=== PATIENT | male | born 1935 | race Caucasian/White ===

== ENCOUNTER 2017-08-22 08:32 | Emergency (ER) | END 2017-08-22 13:30 | disposition home or self-care (01) ==

== ENCOUNTER 2018-04-07 03:33 | Inpatient (IN) | payer OTHER ==
[~2018-04-07] VITALS: Wt 89.5 kg
[~2018-04-07 03:33] MED LIST: ASC500 PO; ASPI-903 PO; BISM262O23 PO; CHOL100062 PO; DILT120C77 PO; FER325 PO; HYDR25TA6 PO; MULT-542 PO; OMEP20CA16 PO; POTA20TA96 PO
[2018-04-07] MEDS ORDERED: SOD CHLORIDE 0.9% 500 ML IV STA (03:56)
[2018-04-07] MEDS ORDERED: morphine 2 MG INJ IV STA (03:56)
[2018-04-07] MEDS ORDERED: ONDANSETRON 4 MG INJ IV STA (03:56)
[2018-04-07] MEDS ORDERED: CEFTRIAXONE 1 GM/50 ML (PMX) 50 ML IVPB ONE (06:00)
[2018-04-07] MEDS ORDERED: NACL 0.9% 3 ML SYG IV SCH (06:00)
[2018-04-07] MEDS ORDERED: PANTOPRAZOLE 40 MG INJ IV SCH (06:00)
[2018-04-07] MEDS ORDERED: ONDANSETRON 4 MG INJ IV PRN (06:00)
[2018-04-07] MEDS ORDERED: ACETAMINOPHEN 325 MG TAB PO PRN (06:00)
[2018-04-07] MEDS: SOD CHLORIDE 0.9% 1,000 ML IV SCH ×4 (06:12→21:28)
[2018-04-07 08:42] VITALS: BP 130/63; PULSE 71; RESP 18
[2018-04-07 15:38] VITALS: BP 117/58; PULSE 67; RESP 18
--- NOTE | 2018-04-07 17:04 | HP ---
Date/Time of Note Date/Time of Note DATE: 04/07/18 TIME: 16:57 Assessment/Plan VTE Prophylaxis SCD applied (from Nsg): Yes Pharmacological prophylaxis: NA/contraindicated Pharm contraindication: surgical contra Lines/Catheters IV Catheter Type (from Nrsg): Peripheral IV Urinary Cath still in place: No Assessment/Plan Hospital Course 1. Abdominal pain secondary to duodenitis/peptic ulcer disease and/or cystitis Protonix 40 mg IV twice daily GI consultation obtained Rocephin IV 2. UTI secondary to history of BPH and bladder incontinence Continue empiric Rocephin Urine culture 3. Hypertension Hold home meds at this time 4. History of GERD PPI 5. History of CVA with residual right-sided deficit No acute issues Prophylaxis: SCDs Result Diagram: 04/07/18 0400 04/07/18 0400 Results 24hrs Laboratory Tests Test 04/07/18 04:00 04/07/18 05:00 White Blood Count 11.6 #H Red Blood Count 4.45 L Hemoglobin 14.8 Hematocrit 43.6 Mean Corpuscular Volume 98.0 Mean Corpuscular Hemoglobin 33.3 H Mean Corpuscular Hemoglobin Concent 33.9 Red Cell Distribution Width 12.8 Platelet Count 142 Mean Platelet Volume 11.7 H Immature Granulocytes % 0.300 Neutrophils % 86.1 H Lymphocytes % 7.9 L Monocytes % 5.5 Eosinophils % 0.0 Basophils % 0.2 Nucleated Red Blood Cells % 0.0 Immature Granulocytes # 0.030 Neutrophils # 10.0 H Lymphocytes # 0.9 Monocytes # 0.6 Eosinophils # 0.0 Basophils # 0.0 Nucleated Red Blood Cells # 0.0 Sodium Level 143 Potassium Level 4.2 Chloride Level 108 Carbon Dioxide Level 26 Anion Gap 9 Blood Urea Nitrogen 21 H Creatinine 0.98 Est Glomerular Filtrat Rate mL/min Glucose Level 142 Calcium Level 9.3 Total Bilirubin 0.5 Direct Bilirubin 0.00 Indirect Bilirubin 0.5 Aspartate Amino Transf (AST/SGOT) 44 Alanine Aminotransferase (ALT/SGPT) 52 Alkaline Phosphatase 87 Troponin I < 0.012 Total Protein 8.0 Albumin 4.2 Globulin 3.80 H Albumin/Globulin Ratio 1.10 Lipase 39 Urine Color YELLOW Urine Clarity SLIGHTLY CLOUDY A Urine pH 7.0 Urine Specific Hayden 1.021 Urine Ketones NEGATIVE Urine Nitrite NEGATIVE Urine Bilirubin NEGATIVE Urine Urobilinogen 2+ H Urine Leukocyte Esterase 3+ H Urine Microscopic RBC 171 H Urine Microscopic WBC 103 H Urine Squamous Epithelial Cells FEW Urine Amorphous Crystals FEW A Urine Bacteria FEW A Urine Hemoglobin 2+ H Urine Glucose NEGATIVE Urine Total Protein 1+ H HPI/ROS Admit Date/Time Admit Date/Time Apr 07, 2018 at 05:51 Hx of Present Illness Patient is an 82-year-old male with a history of CVA with residual right-sided weakness, GERD, BPH with bladder incontinence, hypertension, aspiration pneumonia. The patient presents with 2 days of left mid epigastric pain, patient denies any nausea or vomiting, diarrhea or constipation. Patient states that the pain has now improved. In the ER CT abdomen showed evidence of duodenitis/peptic ulcer disease as well as mild wall thickening of the distal esophagus. Patient has no other complaints this time. ROS Constitutional: no complaints, improved Eyes: no complaints ENT: no complaints Respiratory: no complaints Cardiovascular: no complaints Gastrointestinal: no complaints Genitourinary: no complaints Musculoskeletal: no complaints Skin: no complaints Neurologic: no complaints Endocrine: no complaints Lymphatic: no complaints Psychological: no complaints, nl mood/affect Immunologic: no complaints PMH/Family/Social Past Medical History As per HPI Medications Current Medications Sodium Chloride 1,000 ml @ 80 mls/hr [id number] IV Last administered on 04/07/18at 08:24; Admin Dose 80 MLS/HR; Start 04/07/18 at 05:54 IV Flush (NS 3 ml) 3 ml PER PROTOCOL IV ; Start 04/07/18 at 06:00 Ondansetron HCl (Zofran Inj) 4 mg Q6H PRN IV NAUSEA AND/OR VOMITING; Start 04/07/18 at 06:00 Acetaminophen (Tylenol Tab) 650 mg Q6H PRN PO PAIN LEVEL 1-3 OR FEVER; Start 04/07/18 at 06:00 Pantoprazole (Protonix Iv) 40 mg DAILY@06 IV Last administered on 04/07/18at 06:12; Admin Dose 40 MG; Start 04/07/18 at 06:00 Ceftriaxone Sodium 50 ml @ 100 mls/hr Q24H IVPB ; Start 04/08/18 at 04:00 Coded Allergies: No Known Allergy (Verified , 08/22/17) Past Surgical History Past Surgical Hx: cholecystectomy Social History Smoking Status: Never smoker Exam/Review of Systems Vital Signs Vitals Vital Signs Date Temp Pulse Resp B/P (MAP) Pulse Ox O2 O2 Flow FiO2 Time Delivery Rate 04/07/18 97.7 67 18 117/58 93 15:38 (77) 04/07/18 Room Air 06:00 Exam Constitutional: alert, oriented Respiratory: clear to auscultation Cardiovascular: regular rate and rhythm Gastrointestinal: soft, non-tender Musculoskeletal: nl extremities to inspection SEBASTIÁN BETHEA Apr 07, 2018 17:04
[2018-04-07] MEDS: PANTOPRAZOLE 40 MG INJ IV SCH (17:48)
[2018-04-07 20:00] VITALS: BP 124/60; PULSE 76; RESP 18
[2018-04-08] MEDS ORDERED: ZOLPIDEM 5 MG TAB PO ONE (01:00)
[2018-04-08] MEDS ORDERED: CEFTRIAXONE 1 GM/50 ML (PMX) 50 ML IVPB SCH (04:00)
[2018-04-08] MEDS ORDERED: DIPHENHYDRAMINE 25 MG CAP PO PRN (05:00)
[2018-04-08] MEDS: PANTOPRAZOLE 40 MG INJ IV SCH (05:24)
[2018-04-08 07:52] VITALS: BP 121/58; PULSE 71; RESP 18
[2018-04-08] MEDS ORDERED: ASCORBIC ACID 500 MG TAB PO SCH (09:00)
[2018-04-08] MEDS ORDERED: CHOLECALCIFEROL 1,000 UNIT TAB PO SCH (09:00)
[2018-04-08] MEDS: SOD CHLORIDE 0.9% 1,000 ML IV SCH (12:00)
[2018-04-08 14:00] VITALS: BP 128/72; PULSE 78; RESP 20
--- NOTE | 2018-04-08 14:12 | CONS ---
Date/Time of Note Date/Time of Note DATE: 04/08/18 TIME: 13:45 Assessment/Plan Assessment/Plan Hospital Course Summary Assessment and Plan: Assessment: Abdominal pain -Possibly secondary to duodenitis versus UTI versus PUD versus other UTI- Pyrosis BPH Hypertension History of CVA -right-sided weakness Chronic pancreatitis Left adrenal myelolipoma Plan: continue PPI BID EGD tomorrow N.p.o. after 04/09/18 0400 Endoscopy - risks/benefits/alternatives/indications of procedure and sedation/anesthesia discussed with patient and patient's daughter Bekah who states understanding and gives informed consent to proceed. Patient is seen in collaboration with Dr. Lynch/Cruz Result Diagram: 04/08/18 0433 04/08/18 0433 Results 24hrs Laboratory Tests Test 04/08/18 04:33 White Blood Count 8.8 # Red Blood Count 3.90 L Hemoglobin 13.2 L Hematocrit 38.8 L Mean Corpuscular Volume 99.5 Mean Corpuscular Hemoglobin 33.8 H Mean Corpuscular Hemoglobin Concent 34.0 Red Cell Distribution Width 12.8 Platelet Count 143 Mean Platelet Volume 11.4 H Immature Granulocytes % 0.300 Neutrophils % 78.9 H Lymphocytes % 15.1 Monocytes % 5.6 Eosinophils % 0.0 Basophils % 0.1 Nucleated Red Blood Cells % 0.0 Immature Granulocytes # 0.030 Neutrophils # 6.9 Lymphocytes # 1.3 Monocytes # 0.5 Eosinophils # 0.0 Basophils # 0.0 Nucleated Red Blood Cells # 0.0 Sodium Level 145 H Potassium Level 3.9 Chloride Level 108 Carbon Dioxide Level 24 Anion Gap 13 Blood Urea Nitrogen 17 Creatinine 0.94 Est Glomerular Filtrat Rate mL/min Glucose Level 107 Hemoglobin A1c 5.3 Calcium Level 8.6 Magnesium Level 1.9 Total Bilirubin 0.4 Direct Bilirubin 0.00 Indirect Bilirubin 0.4 Aspartate Amino Transf (AST/SGOT) 30 Alanine Aminotransferase (ALT/SGPT) 43 Alkaline Phosphatase 73 Total Protein 6.9 # Albumin 3.5 Globulin 3.40 H Albumin/Globulin Ratio 1.02 Thyroid Stimulating Hormone (TSH) 0.302 L CC: LOUANN LYNCH ; Consultation Date/Type/Reason Admit Date/Time Apr 07, 2018 at 05:51 Date of Consultation: Apr 08, 2018 Type of Consult GI Reason for Consultation Abdominal pain Abnormal imaging of duodenum and esophagus Hx of Present Illness This is a 82-year-old male with past medical history of CVA with right-sided deficits, BPH, hypertension, fibrosis who presented to the hospital with complaints of severe upper abdominal pain, with evaluation patient underwent a CT abdomen pelvis without contrast showing subtle findings of proximal to mid duodenal wall thickening and periduodenal stranding which raises the possibility of duodenitis/peptic disease. There may also be mild circumferential wall thickening versus underdistention of the distal esophagus. No evidence of intestinal obstruction, free air or abscess. New trace right pleural effusion. Otherwise unchanged including colonic diverticulosis without diverticulitis, findings of chronic pancreatitis, and left adrenal myelolipoma compared to previous CT scans. Currently patient is alert and oriented able to to make needs known understands plan for upper endoscopy reviewed risk/benefits patient is agreeable. Additionally called patient's daughter Bekah [phone] scan and discussed plan for EGD but patient states he last ate about 9:00 however we are unsure per patient's daughter request we will plan for EGD tomorrow. Reviewed risk/benefits/alternatives with patient's daughter Bekah who verbalized understanding is agreeable to procedure. Review of Systems: A 12 system, review was conducted and is negative except as noted in the HPI or here. Past Medical History Medications Current Medications Sodium Chloride 1,000 ml @ 80 mls/hr [id number] IV Last administered on 04/08/18at 12:00; Admin Dose 80 MLS/HR; Start 04/07/18 at 05:54 IV Flush (NS 3 ml) 3 ml PER PROTOCOL IV ; Start 04/07/18 at 06:00 Ondansetron HCl (Zofran Inj) 4 mg Q6H PRN IV NAUSEA AND/OR VOMITING; Start 04/07/18 at 06:00 Acetaminophen (Tylenol Tab) 650 mg Q6H PRN PO PAIN LEVEL 1-3 OR FEVER; Start 04/07/18 at 06:00 Ceftriaxone Sodium 50 ml @ 100 mls/hr Q24H IVPB Last administered on 04/08/18at 03:35; Admin Dose 100 MLS/HR; Start 04/08/18 at 04:00 Pantoprazole (Protonix Iv) 40 mg 0600,1800 IV Last administered on 04/08/18at 05:24; Admin Dose 40 MG; Start 04/07/18 at 18:00 Ascorbic Acid (Vitamin C) 500 mg DAILY PO Last administered on 04/08/18at 08:50; Admin Dose 500 MG; Start 04/08/18 at 09:00 Cholecalciferol (Vitamin D) 2,000 unit DAILY PO Last administered on 04/08/18at 08:50; Admin Dose 2,000 UNIT; Start 04/08/18 at 09:00 Diphenhydramine HCl (Benadryl) 25 mg Q6H PRN PO ITCHING Last administered on 04/08/18at 05:24; Admin Dose 25 MG; Start 04/08/18 at 05:00 Allergies: Coded Allergies: [email or web address] (Verified Allergy, Unknown, 04/08/18) Rash and itching Past Surgical History Past Surgical Hx: cholecystectomy Social History Smoking Status: Never smoker Exam/Review of Systems Vital Signs Vitals Vital Signs Date Temp Pulse Resp B/P (MAP) Pulse Ox O2 O2 Flow FiO2 Time Delivery Rate 04/08/18 98.3 71 18 121/58 95 07:52 (79) 04/07/18 Room Air 06:00 Intake and Output 04/07/18 04/07/18 04/08/18 1515:00 23:00 07:00 IntakeIntake Total 1360 ml 610 ml BalanceBalance 1360 ml 610 ml Exam PHYSICAL EXAMINATION: GENERAL: Alert & oriented x 3, forgetful SKIN: No lesions, no stigmata chronic liver disease, no evidence of bleeding diathesis HEAD: Normocephalic, atraumatic, no tenderness. EYES: Pupils equal reactive to light . EARS/NOSE AND THROAT: Ears normal, nose normal, oropharynx normal, NECK: Supple, no masses CARDIOVASCULAR: Heart: Regular rate and rhythm. RESPIRATORY: Lungs clear to auscultation GASTROINTESTINAL AND LIVER: Abdomen: Soft, non tenderness, non-distended, no hernias, no masses, no organomegaly, no ascites, no guarding, no rebound tenderness, normoactive bowel sounds. Rectal: Deferred. EXTREMITIES: No cyanosis, clubbing or edema. Medications Medications Current Medications Sodium Chloride 1,000 ml @ 80 mls/hr [id number] IV Last administered on 04/08/18at 12:00; Admin Dose 80 MLS/HR; Start 04/07/18 at 05:54 IV Flush (NS 3 ml) 3 ml PER PROTOCOL IV ; Start 04/07/18 at 06:00 Ondansetron HCl (Zofran Inj) 4 mg Q6H PRN IV NAUSEA AND/OR VOMITING; Start 04/07/18 at 06:00 Acetaminophen (Tylenol Tab) 650 mg Q6H PRN PO PAIN LEVEL 1-3 OR FEVER; Start 04/07/18 at 06:00 Ceftriaxone Sodium 50 ml @ 100 mls/hr Q24H IVPB Last administered on 04/08/18at 03:35; Admin Dose 100 MLS/HR; Start 04/08/18 at 04:00 Pantoprazole (Protonix Iv) 40 mg 0600,1800 IV Last administered on 04/08/18at 05:24; Admin Dose 40 MG; Start 04/07/18 at 18:00 Ascorbic Acid (Vitamin C) 500 mg DAILY PO Last administered on 04/08/18at 08:50; Admin Dose 500 MG; Start 04/08/18 at 09:00 Cholecalciferol (Vitamin D) 2,000 unit DAILY PO Last administered on 04/08/18at 08:50; Admin Dose 2,000 UNIT; Start 04/08/18 at 09:00 Diphenhydramine HCl (Benadryl) 25 mg Q6H PRN PO ITCHING Last administered on 04/08/18at 05:24; Admin Dose 25 MG; Start 04/08/18 at 05:00 BLANCA WINTERS Apr 08, 2018 13:55
[2018-04-08] MEDS ORDERED: CIPR500T4 PO (14:47)
--- NOTE | 2018-04-08 14:48 | PDOCDIS ---
Discharge Instructions CONDITION [id number] Patient Condition: [id number] Good HOME CARE INSTRUCTIONS: [id number] Diet Instructions: [id number] Regular ACTIVITY: [id number] Activity Restrictions: [id number] No Restrictions FOLLOW UP/APPOINTMENTS Follow-up Plan FOLLOW UP WITH YOUR PRIMARY CARE PHYSICIAN IN 1-2 WEEKS SEBASTIÁN BETHEA Apr 08, 2018 14:48
--- NOTE | 2018-04-08 15:12 | DS ---
Date/Time of Note Date/Time of Note DATE: 04/08/18 TIME: 15:02 Discharge Summary Admission/Discharge Info Admit Date/Time Apr 07, 2018 at 17:10 Discharge Date/Time April 08, 2018 Discharge Diagnosis 1. Abdominal pain secondary to duodenitis/peptic ulcer disease and/or cystitis- resolved Status post Protonix 40 mg IV Continue home PPI GI consultation appreciated, EGD was recommended but patient and daughter prefer to have it done as an outpatient, have spoken to patient's PCP and she is aware Status post Rocephin IV 2. UTI Ultrasound shows no evidence of obstruction or BPH Status post empiric Rocephin Urine culture shows gram-negative rods DC with Cipro 3. Hypertension Continue home meds 4. History of GERD Continue PPI 5. History of CVA with residual right-sided deficit No acute issues Patient Condition: Good Hospital Course Patient is an 82-year-old male with a history of CVA with residual right-sided weakness, GERD, BPH with bladder incontinence, hypertension, aspiration pneumonia. The patient presents with 2 days of left mid epigastric pain, patient denies any nausea or vomiting, diarrhea or constipation. In the ER CT abdomen showed evidence of duodenitis/peptic ulcer disease as well as mild wall thickening of the distal esophagus. Patient's pain did resolve, of note UA and urine culture were consistent with a UTI, patient did receive empiric Rocephin. Renal ultrasound showed no evidence of hydronephrosis or BPH. Patient was seen by GI and recommendation was for EGD, patient and his daughter preferred to have it done as an outpatient, patient's PCP was spoken to and she acknowledged the plan to have it done as an outpatient. Patient was stable for DC with p.o. antibiotics, patient was asymptomatic and had no acute complaints, on the day of discharge patient's vitals, labs and physical exam are stable. Home Meds Active Scripts Ciprofloxacin Hcl* (Ciprofloxacin Hcl*) 500 Mg Tablet, 500 MG PO BID for 5 Days, #10 TAB Prov:SEBASTIÁN BETHEA 04/08/18 Bismuth Subsalicylate* (Pepto-Bismol*) 262 Mg/15 Ml Oral.susp, 15 ML PO TID PRN for DIARRHEA, #24 OZ Prov:JENNIE MILLER MD 08/22/17 Reported Medications Hydrochlorothiazide* (Hydrochlorothiazide*) 25 Mg Tab, 25 MG PO DAILY, #30 TAB 08/22/17 Multivitamin* (Daily Value*) 1 Each Tablet, 1 TAB PO DAILY, TAB 08/22/17 Potassium Chloride* (Potassium Chloride*) 20 Meq Tablet.er, 10 MEQ PO DAILY, TAB.SA 08/22/17 Omeprazole* (Omeprazole*) 20 Mg Capsule.dr, 20 MG PO AC BREAKFAST, #30 CAP 08/22/17 Diltiazem Hcl* (Cardizem CD*) 120 Mg Cap.sr.24h, 30 MG PO Q8, #30 CAP 08/22/17 Cholecalciferol* (Vitamin D3*) 1,000 Unit Tablet, 2000 UNIT PO DAILY, TAB 08/22/17 Aspirin* (Aspirin* Chew) 81 Mg Tab.chew, 81 MG PO DAILY, TAB.CHEW 02/20/16 Ascorbic Acid (Vitamin C) 500 Mg Tab, 500 MG PO DAILY, TAB 03/25/14 Ferrous Sulfate* (Ferrous Sulfate*) 325 Mg Tabec, 325 MG PO BID, TAB 03/25/14 Follow-up Plan FOLLOW UP WITH YOUR PRIMARY CARE PHYSICIAN IN 1-2 WEEKS Primary Care Provider Care Physician No Primary Time spent on discharge: > 30 minutes SEBASTIÁN BETHEA Apr 08, 2018 15:12
--- NOTE | 2018-04-16 23:52 | ERD ---
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 Pain is mild to moderate intensity with no exacerbating factors. No fevers no chills. Mild nausea but no vomiting. No other current complaints. ROS All systems reviewed and are negative except as per history of present illness. Medications Home Meds Active Scripts Ciprofloxacin Hcl* (Ciprofloxacin Hcl*) 500 Mg Tablet, 500 MG PO BID for 5 Days, #10 TAB Prov:SEBASTIÁN BETHEA 04/08/18 Bismuth Subsalicylate* (Pepto-Bismol*) 262 Mg/15 Ml Oral.susp, 15 ML PO TID PRN for DIARRHEA, #24 OZ Prov:JENNIE MILLER MD 08/22/17 Reported Medications Hydrochlorothiazide* (Hydrochlorothiazide*) 25 Mg Tab, 25 MG PO DAILY, #30 TAB 08/22/17 Multivitamin* (Daily Value*) 1 Each Tablet, 1 TAB PO DAILY, TAB 08/22/17 Potassium Chloride* (Potassium Chloride*) 20 Meq Tablet.er, 10 MEQ PO DAILY, TAB.SA 08/22/17 Omeprazole* (Omeprazole*) 20 Mg Capsule.dr, 20 MG PO AC BREAKFAST, #30 CAP 08/22/17 Diltiazem Hcl* (Cardizem CD*) 120 Mg Cap.sr.24h, 30 MG PO Q8, #30 CAP 08/22/17 Cholecalciferol* (Vitamin D3*) 1,000 Unit Tablet, 2000 UNIT PO DAILY, TAB 08/22/17 Aspirin* (Aspirin* Chew) 81 Mg Tab.chew, 81 MG PO DAILY, TAB.CHEW 02/20/16 Ascorbic Acid (Vitamin C) 500 Mg Tab, 500 MG PO DAILY, TAB 03/25/14 Ferrous Sulfate* (Ferrous Sulfate*) 325 Mg Tabec, 325 MG PO BID, TAB 03/25/14 Allergies Allergies: Coded Allergies: zolpidem (Verified Allergy, Unknown, 04/08/18) Rash and itching PMhx/Soc History of Surgery: Yes (cholecystectomy, prostatectomy) Anesthesia Reaction: No Hx Neurological Disorder: Yes (cva) Hx Respiratory Disorders: No Hx Cardiac Disorders: Yes (HTN, HYPERLIPIDEMIA) Hx Psychiatric Problems: No Hx Miscellaneous Medical Probl: Yes (dementia, anemia, gerd/) Hx Alcohol Use: No Hx Substance Use: No Hx Tobacco Use: No Smoking Status: Never smoker Physical Exam Physical Exam Const: No acute distress Head: Atraumatic Eyes: Normal Conjunctiva ENT: Normal External Ears, Nose and Mouth. Neck: Full range of motion. No meningismus. Resp: Clear to auscultation bilaterally Cardio: Regular rate and rhythm, no murmurs Abd: Soft, non tender, non distended. Normal bowel sounds Skin: No petechiae or rashes Back: No midline or flank tenderness Ext: No cyanosis, or edema Neur: Awake and alert Psych: Normal Mood and Affect Results 24 hrs Laboratory Tests Test 04/07/18 04:00 04/07/18 05:00 White Blood Count 11.6 10^3/ul Red Blood Count 4.45 10^6/ul Hemoglobin 14.8 g/dl Hematocrit 43.6 % Mean Corpuscular Volume 98.0 fl Mean Corpuscular Hemoglobin 33.3 pg Mean Corpuscular Hemoglobin Concent 33.9 g/dl Red Cell Distribution Width 12.8 % Platelet Count 142 10^3/UL Mean Platelet Volume 11.7 fl Immature Granulocytes % 0.300 % Neutrophils % 86.1 % Lymphocytes % 7.9 % Monocytes % 5.5 % Eosinophils % 0.0 % Basophils % 0.2 % Nucleated Red Blood Cells % 0.0 /100WBC Immature Granulocytes # 0.030 10^3/ul Neutrophils # 10.0 10^3/ul Lymphocytes # 0.9 10^3/ul Monocytes # 0.6 10^3/ul Eosinophils # 0.0 10^3/ul Basophils # 0.0 10^3/ul Nucleated Red Blood Cells # 0.0 10^3/ul Sodium Level 143 mmol/L Potassium Level 4.2 mmol/L Chloride Level 108 mmol/L Carbon Dioxide Level 26 mmol/L Anion Gap 9 Blood Urea Nitrogen 21 mg/dl Creatinine 0.98 mg/dl Est Glomerular Filtrat Rate mL/min mL/min Glucose Level 142 mg/dl Calcium Level 9.3 mg/dl Total Bilirubin 0.5 mg/dl Direct Bilirubin 0.00 mg/dl Indirect Bilirubin 0.5 mg/dl Aspartate Amino Transf (AST/SGOT) 44 IU/L Alanine Aminotransferase (ALT/SGPT) 52 IU/L Alkaline Phosphatase 87 IU/L Troponin I < 0.012 ng/ml Total Protein 8.0 g/dl Albumin 4.2 g/dl Globulin 3.80 g/dl Albumin/Globulin Ratio 1.10 Lipase 39 U/L Urine Color YELLOW Urine Clarity SLIGHTLY CLOUDY Urine pH 7.0 Urine Specific Crocker 1.021 Urine Ketones NEGATIVE mg/dL Urine Nitrite NEGATIVE mg/dL Urine Bilirubin NEGATIVE mg/dL Urine Urobilinogen 2+ mg/dL Urine Leukocyte Esterase 3+ Betty/ul Urine Microscopic RBC 171 /HPF Urine Microscopic WBC 103 /HPF Urine Squamous Epithelial Cells FEW /HPF Urine Amorphous Crystals FEW /HPF Urine Bacteria FEW /HPF Urine Hemoglobin 2+ mg/dL Urine Glucose NEGATIVE mg/dL Urine Total Protein 1+ mg/dl Current Medications Medications Dose Sig/Eve Start Time Status Last (Trade) Ordered Route PRN Stop Time Admin Dose Reason Admin Sodium 500 ml @ Q1H STAT 04/07/18 DC 04/07/18 Chloride 500 mls/hr IV 03:56 04:42 04/07/18 04:55 Morphine 2 mg ONCE STAT 04/07/18 DC 04/07/18 Sulfate IV 03:56 04:44 (morphine) 04/07/18 03:57 Ondansetron 4 mg ONCE STAT 04/07/18 DC 04/07/18 HCl (Zofran IV 03:56 04:42 Inj) 04/07/18 03:57 Procedures/MDM EKG: Rate/Rhythm: [Normal Sinus Rhythm] QRS, ST, T-waves: [No changes consistent w/ acute ischemia] Impression: [No evidence of ischemia or arrhythmia] Chest X-ray 1V Interpreted by me: Soft Tissue: No acute a bnormalities Bones: No acute abnormalities Mediastinum/Cardiac Silhouette/Lungs: [No acute abnormalities] Medical decision making: Is an 82-year-old male with intractable abdominal pain likely secondary to duodenitis. Patient will be admitted for evaluation and management to the hospitalist group. Hospitalist notified. Patient also has evidence of urinary tract infection has been treated with Rocephin post urine culture. Departure Diagnosis: Primary Impression: Abdominal pain Abdominal location: unspecified location Qualified Codes: R10.9 - Unspecified abdominal pain Condition: Fair Patient Instructions: Pyelonephritis, Ciprofloxacin Hydrochloride Oral tablet JULIETA GARVEY Apr 16, 2018 23:52
== END 2018-04-08 16:22 | disposition home or self-care (01) | DRG 690 ==
LOC: FTE 03:33 → PP2 05:51 → OBSVTOIN 17:10
PROVIDERS: ADMIT Family Medicine; ATTEND Internal Medicine
DX: N39.0 Urinary tract infection, site not specified (principal); I69.951 Hemiplegia and hemiparesis following unspecified cerebrovascular disease affecting right dominant side; K86.1 Other chronic pancreatitis; K29.80 Duodenitis without bleeding; K27.9 Peptic ulcer, site unspecified, unspecified as acute or chronic, without hemorrhage or perforation; I10 Essential (primary) hypertension; N40.0 Benign prostatic hyperplasia without lower urinary tract symptoms
CPT/HCPCS: 36415; 71045; 74176; 76775; 80053; 81001; 83036; 83690; 83735; 84443; 84484; 85025; 87081; 87086; 93005; 96374; 96375; G0378; A4310; C9113; J0696; J2270; J2405; J7030; J7040

== ENCOUNTER 2018-04-18 05:30 | Inpatient (IN) | payer OTHER ==
[2018-04-18] VITALS (14 sets, daily range): BP systolic 83–118; BP diastolic 47–61; PULSE 74–103; RESP 17–21; Ht 177.8 cm; Wt 90.9 kg
[~2018-04-18] VITALS: Ht 177.8 cm; Wt 90.9 kg
[~2018-04-18 05:30] MED LIST changes: +CIPR500T4 PO
[2018-04-18] MEDS ORDERED: ONDANSETRON 4 MG INJ IV STA ×2 (05:36→09:13)
[2018-04-18] MEDS ORDERED: SOD CHLORIDE 0.9% 500 ML IV STA (05:36)
[2018-04-18] MEDS ORDERED: POTA10TA37 PO (06:05)
[2018-04-18] MEDS ORDERED: FURO20TA3 PO (06:05)
[2018-04-18] MEDS ORDERED: FENO54TA7 PO (06:05)
[2018-04-18] MEDS ORDERED: LOSA25TA12 PO (06:05)
[2018-04-18] MEDS ORDERED: ESCI5TAB10 PO (06:05)
--- NOTE | 2018-04-18 06:18 | ERD ---
ER Documentation Chief Complaint Chief Complaint BIB [id number] for AP x3 days w/ n/v/worsening pain today HPI This is an 82-year-old man brought in by EMS from [facility] for being unable to sleep tonight, feeling "uncomfortable", and having constant nausea. Patient denies abdominal pain, he denied this point multiple times during my conversation but states he had severe nausea throughout the night which kept him awake. He was admitted last week for epigastric pain and diagnosed with peptic ulcer disease/duodenitis. Patient states his abdominal pain resolved. He denied vomiting or diarrhea, no blood per rectum or melena, no complaints of chest pain or shortness of breath. ROS All systems reviewed and are negative except as per history of present illness. Medications Home Meds Active Scripts Ondansetron Hcl* (Zofran*) 4 Mg Tablet, 4 MG PO Q8H PRN for NAUSEA AND/OR VOMITING, #30 TAB Prov:JENNIE MILLER MD 04/18/18 Ciprofloxacin Hcl* (Ciprofloxacin Hcl*) 500 Mg Tablet, 500 MG PO BID for 5 Days, #10 TAB Prov:SEBASTIÁN BETHEA 04/08/18 Reported Medications Fenofibrate, Micronized (Fenofibrate) 54 Mg Tablet, 54 MG PO DAILY, TAB 04/18/18 Potassium Chloride* (K-Dur*) 10 Meq Tab.prt.sr, 10 MEQ PO DAILY, TAB 04/18/18 Losartan Potassium* (Losartan Potassium*) 25 Mg Tablet, 25 MG PO DAILY, TAB 04/18/18 Furosemide* (Furosemide*) 20 Mg Tablet, 20 MG PO DAILY, #60 TAB 04/18/18 Escitalopram Oxalate* (Escitalopram Oxalate*) 5 Mg Tablet, 5 MG PO DAILY, #30 TAB 04/18/18 Hydrochlorothiazide* (Hydrochlorothiazide*) 25 Mg Tab, 25 MG PO DAILY, #30 TAB 08/22/17 Multivitamin* (Daily Value*) 1 Each Tablet, 1 TAB PO DAILY, TAB 08/22/17 Omeprazole* (Omeprazole*) 20 Mg Capsule.dr, 20 MG PO AC BREAKFAST, #30 CAP 08/22/17 Diltiazem Hcl* (Cardizem CD*) 120 Mg Cap.sr.24h, 30 MG PO Q8, #30 CAP 08/22/17 Cholecalciferol* (Vitamin D3*) 1,000 Unit Tablet, 2000 UNIT PO DAILY, TAB 08/22/17 Aspirin* (Aspirin* Chew) 81 Mg Tab.chew, 81 MG PO DAILY, TAB.CHEW 02/20/16 Ferrous Sulfate* (Ferrous Sulfate*) 325 Mg Tabec, 325 MG PO BID, TAB 03/25/14 Discontinued Reported Medications Potassium Chloride* (Potassium Chloride*) 20 Meq Tablet.er, 10 MEQ PO DAILY, TAB.SA 08/22/17 Ascorbic Acid (Vitamin C) 500 Mg Tab, 500 MG PO DAILY, TAB 03/25/14 Discontinued Scripts Bismuth Subsalicylate* (Pepto-Bismol*) 262 Mg/15 Ml Oral.susp, 15 ML PO TID PRN for DIARRHEA, #24 OZ Prov:JENNIE MILLER MD 08/22/17 Allergies Allergies: Coded Allergies: zolpidem (Unverified Allergy, Unknown, 04/18/18) Rash and itching PMhx/Soc CVA with residual right-sided weakness, GERD, BPH with bladder incontinence, hypertension, recent UTI and recent duodenitis Medical and Surgical Hx: pt denies Medical Hx, pt denies Surgical Hx History of Surgery: Yes (cholecystectomy, prostatectomy) Anesthesia Reaction: No Hx Neurological Disorder: Yes (cva) Hx Respiratory Disorders: No Hx Cardiac Disorders: Yes (HTN, HYPERLIPIDEMIA) Hx Psychiatric Problems: No Hx Miscellaneous Medical Probl: Yes (dementia, anemia, gerd/) Hx Alcohol Use: No Hx Substance Use: No Hx Tobacco Use: No Smoking Status: Never smoker FmHx Family History: No diabetes Physical Exam Vitals Vital Signs Date Temp Pulse Resp B/P (MAP) Pulse Ox O2 O2 Flow FiO2 Time Delivery Rate 04/18/18 98.5 99 16 120/68 98 Room Air 09:00 (85) 99 04/18/18 98.2 85 24 110/54 98 Nasal 06:56 (72) Cannula 04/18/18 98.2 86 26 117/69 98 Room Air 05:51 (85) 04/18/18 99.3 88 20 117/69 95 05:36 (85) Physical Exam Const: No acute distress, appears dehydrated HEENT: Dry mucous membranes, pink conjunctive, no cervical spine deformity Resp: Clear to auscultation bilaterally Cardio: Regular rate and rhythm, no murmurs Abd: Soft, non tender, non distended. Skin: No petechiae or rashes Back: No midline or flank tenderness Ext: No cyanosis, or edema Neur: Awake and alert x3, no focal deficits or facial asymmetry Psych: Normal Mood and Affect Result Diagram: 04/18/18 0545 04/18/18 0545 Results 24 hrs Laboratory Tests Test 04/18/18 05:45 04/18/18 06:51 White Blood Count 12.4 10^3/ul Red Blood Count 3.91 10^6/ul Hemoglobin 13.1 g/dl Hematocrit 38.6 % Mean Corpuscular Volume 98.7 fl Mean Corpuscular Hemoglobin 33.5 pg Mean Corpuscular Hemoglobin Concent 33.9 g/dl Red Cell Distribution Width 12.9 % Platelet Count 169 10^3/UL Mean Platelet Volume 11.7 fl Immature Granulocytes % 0.500 % Neutrophils % 84.9 % Lymphocytes % 8.7 % Monocytes % 5.7 % Eosinophils % 0.0 % Basophils % 0.2 % Nucleated Red Blood Cells % 0.0 /100WBC Immature Granulocytes # 0.060 10^3/ul Neutrophils # 10.5 10^3/ul Lymphocytes # 1.1 10^3/ul Monocytes # 0.7 10^3/ul Eosinophils # 0.0 10^3/ul Basophils # 0.0 10^3/ul Nucleated Red Blood Cells # 0.0 10^3/ul Sodium Level 147 mmol/L Potassium Level 4.2 mmol/L Chloride Level 107 mmol/L Carbon Dioxide Level 26 mmol/L Anion Gap 14 Blood Urea Nitrogen 34 mg/dl Creatinine 1.07 mg/dl Est Glomerular Filtrat Rate mL/min mL/min Glucose Level 126 mg/dl Calcium Level 9.0 mg/dl Total Bilirubin 0.5 mg/dl Direct Bilirubin 0.00 mg/dl Indirect Bilirubin 0.5 mg/dl Aspartate Amino Transf (AST/SGOT) 51 IU/L Alanine Aminotransferase (ALT/SGPT) 62 IU/L Alkaline Phosphatase 70 IU/L Troponin I < 0.012 ng/ml Total Protein 7.5 g/dl Albumin 4.0 g/dl Globulin 3.50 g/dl Albumin/Globulin Ratio 1.14 Lipase 106 U/L Urine Color YELLOW Urine Clarity CLEAR Urine pH 5.0 Urine Specific [place] 1.020 Urine Ketones NEGATIVE mg/dL Urine Nitrite NEGATIVE mg/dL Urine Bilirubin NEGATIVE mg/dL Urine Urobilinogen 2+ mg/dL Urine Leukocyte Esterase NEGATIVE Betty/ul Urine Hemoglobin NEGATIVE mg/dL Urine Glucose NEGATIVE mg/dL Urine Total Protein NEGATIVE mg/dl Current Medications Medications Dose Sig/Eve Start Time Status Last (Trade) Ordered Route PRN Stop Time Admin Dose Reason Admin Sodium 500 ml @ Q1H STAT 04/18/18 DC 04/18/18 Chloride 500 mls/hr IV 05:36 05:59 04/18/18 06:35 Ondansetron 4 mg ONCE STAT 04/18/18 DC 04/18/18 HCl (Zofran IV 05:36 05:59 Inj) 04/18/18 05:37 40 mg ONCE STAT 04/18/18 DC Pantoprazole IV 09:13 (Protonix 04/18/18 09:14 Iv) Ondansetron 4 mg ONCE STAT 04/18/18 DC HCl (Zofran IV 09:13 Inj) 04/18/18 09:14 Procedures/MDM IV line was established patient was placed on phototypesetting equipment monitor rhythm strip revealed a sinus rhythm at about 80 bpm with upright P and T waves. Patient was afebrile EKG performed, read by me revealed a normal sinus rhythm 87 bpm, normal axis, narrow complex, no concerning ST elevations or depressions noted CBC was unremarkable, electrolytes revealed dehydration with a BUN/creatinine of 34/1, liver function tests were normal, troponin was negative, urinalysis was negative CT scan of the abdomen and pelvis,IMPRESSION: 1. No acute process in the imaged abdomen or pelvis. 2. Diverticulosis of the large bowel. No evidence of acute inflammation. 3. Small hiatal hernia and small bilateral fat containing inguinal hernias. 4. Cholecystectomy. 5. Chronic pancreatitis. 6. Aortic and coronary atherosclerosis. 7. 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 Patient's vital signs remained normal and above workup was unremarkable, patient had no complaints of pain so initial plan was for discharge back to facility for outpatient management, although while waiting in the ED patient had an episode of coffee-ground emesis and given his recent history of duodenitis and peptic ulcer disease he will be admitted to telemetry setting for continued medical management, GI consultation, upper endoscopy. I administered another liter normal saline IV, Zofran 4 mg IV, Protonix 40 mg IV x1. I spoke to GI cone machine operator and recommendation was to keep n.p.o. pending upper endoscopy. Patient admitted to telemetry setting under hospitalist for upper GI bleed. Departure Diagnosis: Primary Impression: Upper gastrointestinal bleeding Additional Impressions: Acute duodenitis Vomiting Vomiting type: hematemesis Nausea presence: with nausea Qualified Codes: K92.0 - Hematemesis Nausea Dehydration Ruled Out: Insomnia Condition: JENNIE Norman MD Apr 18, 2018 06:18
[2018-04-18] MEDS ORDERED: ONDA4TAB8 PO (07:18)
[2018-04-18] MEDS ORDERED: PANTOPRAZOLE 40 MG INJ IV STA (09:13)
[2018-04-18] MEDS ORDERED: LIDOCAINE 2% VISC 15 ML CUP ONE (10:42)
[2018-04-18] MEDS ORDERED: LIDOCAINE 2% VISC 15 ML CUP PO ONE (11:00)
--- NOTE | 2018-04-18 13:30 | NUR ---
RN NOTE PT GOT ADMITTED TO THE UNIT AT 1315 FROM ER. PT WAS SUPPOSE TO GET D/C BACK TO [facility], HOWEVER PT SNEEZED AND COFFEE GROUND EMESIS PROTRUDED WELL BLEEDING NOTED IN THE RECTUM. PT IS AX3, NO S/S OF DISTRESS, NO C/O PAIN. PT HAS A NGT PLACED CONNECTED TO LOW INTERMITTENT SUCTION. SKIN ASSESSED AND INTACT. BLE ABRASIONS AND BRUISES NOTED, AND DISCOLORATION ON THE SACRAL AREA. PT HAS AN IV N THE LEFT AC, SALINE LOCK ONLY. NO C/O NAUSEA AND VOMITING AT THIS TIME, AND NO BLEEDING NOTED. DR. FLORENTINO MADE AWARE PT IS ON THE FLOOR.
[2018-04-18] MEDS ORDERED: ACETAMINOPHEN 325 MG TAB PO PRN (14:00)
[2018-04-18] MEDS ORDERED: NACL 0.9% 3 ML SYG IV SCH (14:00)
[2018-04-18] MEDS ORDERED: ONDANSETRON 4 MG INJ IV PRN ×2 (14:00→16:30)
--- NOTE | 2018-04-18 14:26 | HP ---
Date/Time of Note Date/Time of Note DATE: 04/18/18 TIME: 14:12 Assessment/Plan VTE Prophylaxis SCD applied (from Nsg): Yes Pharmacological prophylaxis: NA/contraindicated Pharm contraindication: bleeding Lines/Catheters IV Catheter Type (from Nrsg): Saline Lock Urinary Cath still in place: No Assessment/Plan Hospital Course SUBJECTIVE: Lying in bed, having abdominal pain, mostly right-sided. NG tube draining greenish amount. OBJECTIVE: Vital signs-see below PHYSICAL EXAM: Constitutional: Elderly male, not in acute distress. Psych: nl mood/affect, no complaints Head: atraumatic, normocephalic Eyes: nl conjunctiva, nl sclera ENMT: mucosa pink and moist, nl external ears & nose Neck: non-tender, supple Respiratory: clear to auscultation, normal air movement Cardiovascular: nl pulses, regular rate and rhythm Gastrointestinal: +Generalized tenderness/mild distension. bowel sounds active in all 4 quadrants. Musculoskeletal/extremities: nl extremities to inspection, motor strength equal bilaterally, no focal deficit. Normal pulses,no cyanosis, no edema. Neurological: Alert oriented 3,nl speech, nl strength Skin: nl turgor ASSESSMENT/PLAN: 82-year-old male, brought in with nausea/dominant pain/ vomiting. 1. Abdominal pain/Vomiting. Gastroenteritis versus PUD versus versus acute on chronic pancreatitis vs possible upper GI bleed in light of reported coffee- ground emesis. -CT with no evidence of bowel obstruction or acute intra-abdominal issues. -GI consult -N.p.o. -Upper GI series,Lipase level -Patient with no diarrhea. However, we will consider stool for C. difficile in the event if he develops diarrhea. -IV fluids -Empiric PPI/Carafate -Cipro/ Flagyl -Stable H&H, will repeat to make sure patient does not have any bleeding. 2.Duodenitis/PUD/GERD -PPi 3.Hypertension -Resume home medicines 4. CVA with right-sided deficit -Hold aspirin 5. Leukocytosis, likely secondary to #1. -Treatment as above 6. Dyslipidemia -Continue home medications -Lipid panel 7. Hypernatremia, likely secondary to dehydration -Fluids 8. Chronic pancreatitis -Add lipase level to a.m. labs. DVT prophylaxis: SCDs PUD prophylaxis: PPI CODE STATUS: Full code Diet: N.p.o. Rest of the management depend on hospital course. Approximately 60 m spent on this history and physical. Result Diagram: 04/18/18 0545 04/18/18 0545 Results 24hrs Laboratory Tests Test 04/18/18 05:45 04/18/18 06:51 White Blood Count 12.4 #H Red Blood Count 3.91 L Hemoglobin 13.1 L Hematocrit 38.6 L Mean Corpuscular Volume 98.7 Mean Corpuscular Hemoglobin 33.5 H Mean Corpuscular Hemoglobin Concent 33.9 Red Cell Distribution Width 12.9 Platelet Count 169 Mean Platelet Volume 11.7 H Immature Granulocytes % 0.500 H Neutrophils % 84.9 H Lymphocytes % 8.7 L Monocytes % 5.7 Eosinophils % 0.0 Basophils % 0.2 Nucleated Red Blood Cells % 0.0 Immature Granulocytes # 0.060 H Neutrophils # 10.5 H Lymphocytes # 1.1 Monocytes # 0.7 Eosinophils # 0.0 Basophils # 0.0 Nucleated Red Blood Cells # 0.0 Sodium Level 147 H Potassium Level 4.2 Chloride Level 107 Carbon Dioxide Level 26 Anion Gap 14 H Blood Urea Nitrogen 34 H Creatinine 1.07 Est Glomerular Filtrat Rate mL/min Glucose Level 126 Calcium Level 9.0 Total Bilirubin 0.5 Direct Bilirubin 0.00 Indirect Bilirubin 0.5 Aspartate Amino Transf (AST/SGOT) 51 H Alanine Aminotransferase (ALT/SGPT) 62 Alkaline Phosphatase 70 Troponin I < 0.012 Total Protein 7.5 Albumin 4.0 Globulin 3.50 H Albumin/Globulin Ratio 1.14 Lipase 106 Urine Color YELLOW Urine Clarity CLEAR Urine pH 5.0 Urine Specific [place] 1.020 Urine Ketones NEGATIVE Urine Nitrite NEGATIVE Urine Bilirubin NEGATIVE Urine Urobilinogen 2+ H Urine Leukocyte Esterase NEGATIVE Urine Hemoglobin NEGATIVE Urine Glucose NEGATIVE Urine Total Protein NEGATIVE HPI/ROS Admit Date/Time Admit Date/Time Apr 18, 2018 at 09:15 Hx of Present Illness 82-year-old male with a history of duodenitis/PUD/GERD, hypertension, CVA with right-sided deficit, was brought into the emergency room with 4-day duration of abdominal pain with nausea/vomiting associated with eating. Patient denied fever, chills, diarrhea, constipation, hematemesis, hematochezia, melena. Patient also denied chest pain, palpitation, shortness of breath, diaphoresis, dizziness, headache, numbness, tingling or other constitutional symptoms. In the emergency room, patient's initial labs showed WBC 12,400, hemoglobin 13.1 , hematocrit 38.6, sodium 147, BUN 34. Urinalysis negative for any infection. Vital signs temperature 99.3, pulse rate 88, respiratory rate 20, blood pressure 117/69, oxygen saturation 95% on room air. Abdominal CT without contrast with no acute process involving abdomen or pelvis. There was evidence of chronic pancreatitis. In the ER, patient had a bout of coffee-ground vomiting. Patient was given IV fluids, Zofran, IV Protonix and a GI consultation was requested and patient was admitted. ROS A 12 point review of system was assessed and is negative other than what is mentioned in the HPI. PMH/Family/Social Past Medical History See HPI Medications Current Medications IV Flush (NS 3 ml) 3 ml PER PROTOCOL IV ; Start 04/18/18 at 14:00; Status UNV Ondansetron HCl (Zofran Inj) 4 mg Q6H PRN IV NAUSEA/VOMITING; Start 04/18/18 at 14:00; Status UNV Acetaminophen (Tylenol Tab) 650 mg Q6H PRN PO .PAIN 1-3 OR TEMP; Start 04/18/18 at 14:00; Status UNV Pantoprazole (Protonix Iv) 40 mg BID@06,18 IV ; Start 04/18/18 at 18:00 Sucralfate (Carafate Susp) 1 gm QID PO ; Start 04/18/18 at 17:00 Cholecalciferol (Vitamin D) 2,000 unit DAILY PO ; Start 04/19/18 at 09:00; Status UNV Diltiazem HCl (Cardizem Cd) 30 mg Q8 PO ; Start 04/18/18 at 14:00; Status UNV Ferrous Sulfate (Ferrous Sulfate (Ec)) 325 mg BID PO ; Start 04/18/18 at 21:00; Status UNV Furosemide (Lasix) 20 mg DAILY PO ; Start 04/19/18 at 09:00; Status UNV Hydrochlorothiazide (Hydrochlorothiazide) 25 mg DAILY PO ; Start 04/19/18 at 09:00; Status UNV Losartan Potassium (Cozaar) 25 mg DAILY PO ; Start 04/19/18 at 09:00; Status UNV Multivitamins Therapeutic (Theragran) 1 tab DAILY PO ; Start 04/19/18 at 09:00; Status UNV Miscellaneous Information 54 mg DAILY PO ; Start 04/19/18 at 09:00; Status UNV Coded Allergies: zolpidem (Unverified Allergy, Unknown, 04/18/18) Rash and itching Past Surgical History See HPI Past Surgical Hx: cholecystectomy Social History Denied history of alcohol, smoking or illicit drug use Smoking Status: Never smoker Exam/Review of Systems Vital Signs Vitals Vital Signs Date Temp Pulse Resp B/P (MAP) Pulse Ox O2 O2 Flow FiO2 Time Delivery Rate 04/18/18 98.7 94 19 97/63 (74) 96 Room Air 12:00 94 SHAQ WALLS NP Apr 18, 2018 14:22
--- NOTE | 2018-04-18 14:28 | CONS ---
Assessment/Plan Assessment/Plan Assessment/Plan (Daily) Assessment, Coffee-ground emesis Nausea/vomitingresolved Chronic pancreatitis on CT History of CVA Plan: EGD today 1 dose of Reglan 10 mg Continue PPI Monitor H&H Transfuse for hemoglobin less than 7.5 Patient seen in collaboration with Consultation Date/Type/Reason Admit Date/Time Apr 18, 2018 at 09:15 Date of Consultation: Apr 18, 2018 Type of Consult GI Reason for Consultation Coffee-ground emesis Date/Time of Note DATE: 04/18/18 TIME: 14:18 Hx of Present Illness This is an 82-year-old male with a history of stroke who was admitted for abdo marimar discomfort and vomiting. Patient had one episode of coffee-ground emesis in the ER after a bite of sandwich. Patient denies use of NSAIDs or alcohol. Imaging shows chronic pancreatitis and absence of gallbladder. Hemoglobin is stable 13.5. Patient denies smoking, drinking or use of illicit drugs. NG tube is in place with bilious output. Currently patient denies nausea, vomiting, hematemesis, hematochezia, diarrhea or abdominal pain. Will order 1 dose of Reglan to facilitate gastric emptying. The plan is to schedule the patient for EGD to rule out gastrointestinal bleeding. Risks and benefits of the procedure have been discussed with the patient. Patient is agreeable to the procedure. Gastrointestinal: no complaints (See HPI) Past Medical History History of CVA, chronic pancreatitis Home Meds Active Scripts Ondansetron Hcl* (Zofran*) 4 Mg Tablet, 4 MG PO Q8H PRN for NAUSEA AND/OR VOMITING, #30 TAB Prov:JENNIE MILLER MD 04/18/18 Ciprofloxacin Hcl* (Ciprofloxacin Hcl*) 500 Mg Tablet, 500 MG PO BID for 5 Days, #10 TAB Prov:SEBASTIÁN BETHEA 04/08/18 Reported Medications Fenofibrate, Micronized (Fenofibrate) 54 Mg Tablet, 54 MG PO DAILY, TAB 04/18/18 Potassium Chloride* (K-Dur*) 10 Meq Tab.prt.sr, 10 MEQ PO DAILY, TAB 04/18/18 Losartan Potassium* (Losartan Potassium*) 25 Mg Tablet, 25 MG PO DAILY, TAB 04/18/18 Furosemide* (Furosemide*) 20 Mg Tablet, 20 MG PO DAILY, #60 TAB 04/18/18 Escitalopram Oxalate* (Escitalopram Oxalate*) 5 Mg Tablet, 5 MG PO DAILY, #30 TAB 04/18/18 Hydrochlorothiazide* (Hydrochlorothiazide*) 25 Mg Tab, 25 MG PO DAILY, #30 TAB 08/22/17 Multivitamin* (Daily Value*) 1 Each Tablet, 1 TAB PO DAILY, TAB 08/22/17 Omeprazole* (Omeprazole*) 20 Mg Capsule.dr, 20 MG PO AC BREAKFAST, #30 CAP 08/22/17 Diltiazem Hcl* (Cardizem CD*) 120 Mg Cap.sr.24h, 30 MG PO Q8, #30 CAP 08/22/17 Cholecalciferol* (Vitamin D3*) 1,000 Unit Tablet, 2000 UNIT PO DAILY, TAB 08/22/17 Aspirin* (Aspirin* Chew) 81 Mg Tab.chew, 81 MG PO DAILY, TAB.CHEW 02/20/16 Ferrous Sulfate* (Ferrous Sulfate*) 325 Mg Tabec, 325 MG PO BID, TAB 03/25/14 Discontinued Reported Medications Potassium Chloride* (Potassium Chloride*) 20 Meq Tablet.er, 10 MEQ PO DAILY, TAB.SA 08/22/17 Ascorbic Acid (Vitamin C) 500 Mg Tab, 500 MG PO DAILY, TAB 03/25/14 Discontinued Scripts Bismuth Subsalicylate* (Pepto-Bismol*) 262 Mg/15 Ml Oral.susp, 15 ML PO TID PRN for DIARRHEA, #24 OZ Prov:JENNIE MILLER MD 08/22/17 Medications Current Medications IV Flush (NS 3 ml) 3 ml PER PROTOCOL IV ; Start 04/18/18 at 14:00 Ondansetron HCl (Zofran Inj) 4 mg Q6H PRN IV NAUSEA/VOMITING; Start 04/18/18 at 14:00 Acetaminophen (Tylenol Tab) 650 mg Q6H PRN PO .PAIN 1-3 OR TEMP; Start 04/18/18 at 14:00 Pantoprazole (Protonix Iv) 40 mg BID@,18 IV ; Start 04/18/18 at 18:00 Sucralfate (Carafate Susp) 1 gm QID PO ; Start 04/18/18 at 17:00 Cholecalciferol (Vitamin D) 2,000 unit DAILY PO ; Start 04/19/18 at 09:00 Diltiazem HCl (Cardizem) 30 mg Q8 PO ; Start 04/18/18 at 14:00 Ferrous Sulfate (Ferrous Sulfate (Ec)) 325 mg BID PO ; Start 04/18/18 at 21:00 Furosemide (Lasix) 20 mg DAILY PO ; Start 04/19/18 at 09:00 Hydrochlorothiazide (Hydrochlorothiazide) 25 mg DAILY PO ; Start 04/19/18 at 09:00 Losartan Potassium (Cozaar) 25 mg DAILY PO ; Start 04/19/18 at 09:00 Multivitamins Therapeutic (Theragran) 1 tab DAILY PO ; Start 04/19/18 at 09:00 Fenofibrate (Tricor) 48 mg DAILY PO ; Start 04/19/18 at 09:00 Allergies: Coded Allergies: zolpidem (Unverified Allergy, Unknown, 04/18/18) Rash and itching Past Surgical History Past Surgical Hx: cholecystectomy Social History Smoking Status: Never smoker Exam/Review of Systems Exam Vitals Vital Signs Date Temp Pulse Resp B/P (MAP) Pulse Ox O2 O2 Flow FiO2 Time Delivery Rate 04/18/18 98.7 94 19 97/63 (74) 96 Room Air 12:00 94 Exam PHYSICAL EXAMINATION: GENERAL: Well developed, well nourished, alert & oriented x 3, in no acute distress SKIN: No lesions, no stigmata chronic liver disease, no evidence of bleeding diathesis LYMPHATIC: No palpable lymphadenopathy. HEAD: Normocephalic, atraumatic, no tenderness. EYES: Pupils equal reactive to light and accommodation, full extraocular movements, sclera clear, non-icteric, no discharge. EARS/NOSE AND THROAT: Ears normal, nose normal, oropharynx normal, oral membranes well hydrated without lesions. NECK: Supple, no masses, thyroid normal, JVP within normal limits, carotids normal without bruits. CHEST: Inspection within normal limits. CARDIOVASCULAR: Heart: Regular rate and rhythm, no murmurs, gallops or rubs. Peripheral pulses present within normal limits, no cyanosis, clubbing or edemas. No pulsatile abdominal mass RESPIRATORY: Lungs clear to auscultation and percussion, no wheezing, no rubs GASTROINTESTINAL AND LIVER: Abdomen: Soft, obese, non tenderness, non-distended, no hernias, no masses, no organomegaly, no ascites, no guarding, no rebound tenderness, normoactive bowel sounds. Rectal: Deferred. GENITOURINARY: Male genitalia within normal limits. EXTREMITIES: No cyanosis, clubbing or edema. Results Result Diagram: 04/18/18 0545 04/18/18 0545 Results 24hrs Laboratory Tests Test 04/18/18 05:45 04/18/18 06:51 White Blood Count 12.4 #H Red Blood Count 3.91 L Hemoglobin 13.1 L Hematocrit 38.6 L Mean Corpuscular Volume 98.7 Mean Corpuscular Hemoglobin 33.5 H Mean Corpuscular Hemoglobin Concent 33.9 Red Cell Distribution Width 12.9 Platelet Count 169 Mean Platelet Volume 11.7 H Immature Granulocytes % 0.500 H Neutrophils % 84.9 H Lymphocytes % 8.7 L Monocytes % 5.7 Eosinophils % 0.0 Basophils % 0.2 Nucleated Red Blood Cells % 0.0 Immature Granulocytes # 0.060 H Neutrophils # 10.5 H Lymphocytes # 1.1 Monocytes # 0.7 Eosinophils # 0.0 Basophils # 0.0 Nucleated Red Blood Cells # 0.0 Sodium Level 147 H Potassium Level 4.2 Chloride Level 107 Carbon Dioxide Level 26 Anion Gap 14 H Blood Urea Nitrogen 34 H Creatinine 1.07 Est Glomerular Filtrat Rate mL/min Glucose Level 126 Calcium Level 9.0 Total Bilirubin 0.5 Direct Bilirubin 0.00 Indirect Bilirubin 0.5 Aspartate Amino Transf (AST/SGOT) 51 H Alanine Aminotransferase (ALT/SGPT) 62 Alkaline Phosphatase 70 Troponin I < 0.012 Total Protein 7.5 Albumin 4.0 Globulin 3.50 H Albumin/Globulin Ratio 1.14 Lipase 106 Urine Color YELLOW Urine Clarity CLEAR Urine pH 5.0 Urine Specific [place] 1.020 Urine Ketones NEGATIVE Urine Nitrite NEGATIVE Urine Bilirubin NEGATIVE Urine Urobilinogen 2+ H Urine Leukocyte Esterase NEGATIVE Urine Hemoglobin NEGATIVE Urine Glucose NEGATIVE Urine Total Protein NEGATIVE Medications Medication Current Medications IV Flush (NS 3 ml) 3 ml PER PROTOCOL IV ; Start 04/18/18 at 14:00 Ondansetron HCl (Zofran Inj) 4 mg Q6H PRN IV NAUSEA/VOMITING; Start 04/18/18 at 14:00 Acetaminophen (Tylenol Tab) 650 mg Q6H PRN PO .PAIN 1-3 OR TEMP; Start 04/18/18 at 14:00 Pantoprazole (Protonix Iv) 40 mg BID@18 IV ; Start 04/18/18 at 18:00 Sucralfate (Carafate Susp) 1 gm QID PO ; Start 04/18/18 at 17:00 Cholecalciferol (Vitamin D) 2,000 unit DAILY PO ; Start 04/19/18 at 09:00 Diltiazem HCl (Cardizem) 30 mg Q8 PO ; Start 04/18/18 at 14:00 Ferrous Sulfate (Ferrous Sulfate (Ec)) 325 mg BID PO ; Start 04/18/18 at 21:00 Furosemide (Lasix) 20 mg DAILY PO ; Start 04/19/18 at 09:00 Hydrochlorothiazide (Hydrochlorothiazide) 25 mg DAILY PO ; Start 04/19/18 at 09:00 Losartan Potassium (Cozaar) 25 mg DAILY PO ; Start 04/19/18 at 09:00 Multivitamins Therapeutic (Theragran) 1 tab DAILY PO ; Start 04/19/18 at 09:00 Fenofibrate (Tricor) 48 mg DAILY PO ; Start 04/19/18 at 09:00 SAI PIERCE NP Apr 18, 2018 14:28
[2018-04-18] MEDS ORDERED: METOCLOPRAMIDE 10 MG INJ IV ONE (14:30)
--- NOTE | 2018-04-18 14:30 | NUR ---
RN NOTE CALLED DAUGHTER LESIA, PT WILL HAVE EGD DONE TODAY BY DR. LYNCH. PT IS ALERT AND CONSENT WILL BE SIGNED WHEN HE GOES DOWN TO GI LAB. PT IS NPO AT THIS TIME. PT WAS AGITATED AND WANTED TO GET PICKED UP ALREADY. CALLED GI LAB, PT WILL GET PICKED UP WITHIN 30 MINS. WENT TO THE PT'S ROOM AND FOUND THE NGT PULLED OUT ALREADY. PT REFUSED TO HAVE IT BACK ON. PER SAI, INTERVENTIONAL RADIOLOGIST, PT DOES NOT NEED IT ONCE HE GOES TO GI LAB. WILL CONTINUE TO MONITOR ANY S/S OF BLEEDING.
[2018-04-18] MEDS: DILTIAZEM 30 MG TAB PO SCH ×2 (14:32→22:18)
--- NOTE | 2018-04-18 16:18 | PREAC ---
Date/Time of Note Date/Time of Note DATE: 04/18/18 TIME: 16:15 Anesthesia Eval and Record Evaluation Time Pre-Procedure Interview DATE: 04/18/18 TIME: 16:15 Age 82 Sex male NPO: Other (ATE 9.00 AM) Preoperative diagnosis gi BLEEDING Planned procedure egd Past Medical History Past Medical History: Includes Cardio: HTN, Dyslipidemia Neuro: CVA Renal: BPH Heme: Anemia Surgery & Anesthesia Issues No known issue Meds Anticoagulation: No Beta Tracy within 24 hr: No Reason Beta Tracy not given: Pt. not on B-Tracy Active Scripts Ondansetron Hcl* (Zofran*) 4 Mg Tablet, 4 MG PO Q8H PRN for NAUSEA AND/OR VOMITING, #30 TAB Prov:JENNIE MILLER MD 04/18/18 Ciprofloxacin Hcl* (Ciprofloxacin Hcl*) 500 Mg Tablet, 500 MG PO BID for 5 Days, #10 TAB Prov:SEBASTIÁN BETHEA 04/08/18 Reported Medications Fenofibrate, Micronized (Fenofibrate) 54 Mg Tablet, 54 MG PO DAILY, TAB 04/18/18 Potassium Chloride* (K-Dur*) 10 Meq Tab.prt.sr, 10 MEQ PO DAILY, TAB 04/18/18 Losartan Potassium* (Losartan Potassium*) 25 Mg Tablet, 25 MG PO DAILY, TAB 04/18/18 Furosemide* (Furosemide*) 20 Mg Tablet, 20 MG PO DAILY, #60 TAB 04/18/18 Escitalopram Oxalate* (Escitalopram Oxalate*) 5 Mg Tablet, 5 MG PO DAILY, #30 TAB 04/18/18 Hydrochlorothiazide* (Hydrochlorothiazide*) 25 Mg Tab, 25 MG PO DAILY, #30 TAB 08/22/17 Multivitamin* (Daily Value*) 1 Each Tablet, 1 TAB PO DAILY, TAB 08/22/17 Omeprazole* (Omeprazole*) 20 Mg Capsule.dr, 20 MG PO AC BREAKFAST, #30 CAP 08/22/17 Diltiazem Hcl* (Cardizem CD*) 120 Mg Cap.sr.24h, 30 MG PO Q8, #30 CAP 08/22/17 Cholecalciferol* (Vitamin D3*) 1,000 Unit Tablet, 2000 UNIT PO DAILY, TAB 08/22/17 Aspirin* (Aspirin* Chew) 81 Mg Tab.chew, 81 MG PO DAILY, TAB.CHEW 02/20/16 Ferrous Sulfate* (Ferrous Sulfate*) 325 Mg Tabec, 325 MG PO BID, TAB 03/25/14 Discontinued Reported Medications Potassium Chloride* (Potassium Chloride*) 20 Meq Tablet.er, 10 MEQ PO DAILY, TAB.SA 08/22/17 Ascorbic Acid (Vitamin C) 500 Mg Tab, 500 MG PO DAILY, TAB 03/25/14 Discontinued Scripts Bismuth Subsalicylate* (Pepto-Bismol*) 262 Mg/15 Ml Oral.susp, 15 ML PO TID PRN for DIARRHEA, #24 OZ Prov:JENNIE MILLER MD 08/22/17 Current Medications IV Flush (NS 3 ml) 3 ml PER PROTOCOL IV ; Start 04/18/18 at 14:00 Ondansetron HCl (Zofran Inj) 4 mg Q6H PRN IV NAUSEA/VOMITING; Start 04/18/18 at 14:00 Acetaminophen (Tylenol Tab) 650 mg Q6H PRN PO .PAIN 1-3 OR TEMP; Start 04/18/18 at 14:00 Pantoprazole (Protonix Iv) 40 mg BID@06,18 IV ; Start 04/18/18 at 18:00 Sucralfate (Carafate Susp) 1 gm QID PO ; Start 04/18/18 at 17:00 Cholecalciferol (Vitamin D) 2,000 unit DAILY PO ; Start 04/19/18 at 09:00 Diltiazem HCl (Cardizem) 30 mg Q8 PO Last administered on 04/18/18at 14:32; Admin Dose 30 MG; Start 04/18/18 at 14:00 Ferrous Sulfate (Ferrous Sulfate (Ec)) 325 mg BID PO ; Start 04/18/18 at 21:00 Furosemide (Lasix) 20 mg DAILY PO ; Start 04/19/18 at 09:00 Hydrochlorothiazide (Hydrochlorothiazide) 25 mg DAILY PO ; Start 04/19/18 at 09:00 Losartan Potassium (Cozaar) 25 mg DAILY PO ; Start 04/19/18 at 09:00 Multivitamins Therapeutic (Theragran) 1 tab DAILY PO ; Start 04/19/18 at 09:00 Fenofibrate (Tricor) 48 mg DAILY PO ; Start 04/19/18 at 09:00 Ciprofloxacin/ Dextrose 200 ml @ 200 mls/hr Q12 IVPB ; Start 04/18/18 at 18:00 Metronidazole 100 ml @ 100 mls/hr Q8 IVPB ; Start 04/18/18 at 14:30 Meds reviewed: Yes Allergies Coded Allergies: [id number] (Unverified Allergy, Unknown, 04/18/18) Rash and itching Allergies Reviewed: Yes Labs/Studies Labs Reviewed: Reviewed by anesthesiologist Result Diagram: 04/18/18 0545 04/18/18 0545 Laboratory Tests 04/18/18 05:45 Blood Bank Test 04/18/18 10:17 Antibody Identification Completed Antibody Screen POSITIVE Blood Type O POSITIVE test: N/A Studies: ECG (SR), CXR (N/A) Pre-procedure Exam Last vitals Vital Signs Date Temp Pulse Resp B/P (MAP) Pulse Ox O2 O2 Flow FiO2 Time Delivery Rate 04/18/18 98.0 91 17 118/55 97 Room Air 16:08 (76) Airway: Adequate mouth opening Mallampati: Mallampati I Teeth: Normal Lung: Normal Heart: Normal ASA Physical Status ASA physical status: 2 Emergency: None Planned Anesthetic General/MAC: MAC Planned Pain Management Parenteral pain med Pre-operative Attestations Prior to commencing anesthesia and surgery, the patient was re-evaluated, there was verification of: *The patient's identity *The results of appropriate recent lab work and preoperative vital signs *The above evaluation not changing prior to induction *Anesthetic plan, risk benefits, alternative and complications discussed with patient/family; questions answered; patient/family understands, accepts and wishes to proceed. LESLIE MOYA MD Apr 18, 2018 16:18
[2018-04-18] MEDS ORDERED: PROPOFOL 20 ML ONE (16:19)
[2018-04-18] MEDS ORDERED: MIDAZOLAM 1 MG/ML 2 ML INJ ONE (16:20)
[2018-04-18] MEDS ORDERED: HYDROmorphONE 1 MG/5 ML IV SYRINGE IV PRN ×3 (16:30)
[2018-04-18] MEDS ORDERED: EPHEDrine SULFATE 50 MG/5 ML SYG IV PRN (16:30)
[2018-04-18] MEDS ORDERED: hydrALAzine 20 MG INJ IV PRN (16:30)
[2018-04-18] MEDS ORDERED: DIPHENHYDRAMINE 50 MG INJ IV PRN (16:30)
[2018-04-18] MEDS ORDERED: LABETALOL HCL 20MG INJ IV PRN (16:30)
--- NOTE | 2018-04-18 16:44 | HPN ---
Date/Time of Note Date/Time of Note DATE: 04/18/18 TIME: 16:44 Interval H&P Admission Note Pt. seen H&P reviewed: No system changes LOUANN LYNCH Apr 18, 2018 16:44
--- NOTE | 2018-04-18 17:33 | NUR ---
RN NOTE PT IS BACK FROM POST OP RECOVERY FROM GI S/P EGD.
--- NOTE | 2018-04-18 17:40 | NUR ---
PACU NOTES AWAKE AND ALERT; BEDSIDE REPORT GIVEN, ASSISTED FROM THE GURNEY TO HIS BED. NO FAMILY AT THE BEDSIDE. KEPT COMFORTABLE
[2018-04-18] MEDS: SUCRALFATE (100 MG/ML) 10ML CUP PO SCH ×2 (17:42→20:53)
[2018-04-18] MEDS: PANTOPRAZOLE 40 MG INJ IV SCH (18:16)
[2018-04-18] MEDS: metroNIDAZOLE 500 MG/NS (PMX) 100 ML IVPB SCH ×2 (18:18→22:18)
--- NOTE | 2018-04-18 18:54 | NUR ---
EOSS PT IS BACK FROM EGD, GASTRIC ULCER NOTED. PT IS ON A CLEAR LIQUID DIET ADV TOLERATED. NO S/S OF DISTRESS, NO C/O ABD PAIN, AND NO BLEEDING NOTED. WILL ENDORSE TO [employer] NURSE PLAN OF CARE.
[2018-04-18] MEDS: CIPROFLOXACIN 400MG/D5W 200 ML IVPB SCH (20:53)
[2018-04-18] MEDS: FERROUS SULFATE (EC) 325 MG TAB PO SCH (20:53)
--- NOTE | 2018-04-18 22:32 | PAC ---
Date/Time of Note Date/Time of Note DATE: 04/18/18 TIME: 22:31 Post-Anesthesia Notes Post-Anesthesia Note Last documented vital signs Vital Signs Date Temp Pulse Resp B/P (MAP) Pulse Ox O2 O2 Flow FiO2 Time Delivery Rate 04/18/18 97.5 79 18 95/54 (68) 95 20:14 04/18/18 Nasal 2.0 17:18 Cannula Activity: WNL Respiratory function: WNL Cardiovascular function: WNL Mental status: Baseline Pain reasonably controlled: Yes Hydration appropriate: Yes Nausea/Vomiting absent: No LESLIE MOYA MD Apr 18, 2018 22:32
[2018-04-19] VITALS (12 sets, daily range): BP systolic 90–113; BP diastolic 45–58; PULSE 71–77; RESP 18–20
[2018-04-19] MEDS: PANTOPRAZOLE 40 MG INJ IV SCH ×2 (05:16→18:12)
[2018-04-19] MEDS: metroNIDAZOLE 500 MG/NS (PMX) 100 ML IVPB SCH ×3 (05:17→21:58)
[2018-04-19] MEDS: DILTIAZEM 30 MG TAB PO SCH ×3 (05:17→21:57)
--- NOTE | 2018-04-19 06:12 | NUR ---
EOSS AAOx4, VSS, O2 sat good on RA, no SOB, no complaints of pain. EGD results pending. Patient still receiving scheduled antibiotics. Hourly rounding done, encouraged pt. to reposition self in bed frequently. Patient had no BM during shift, RN unable to collect stool sample. Patient stable at this time, will endorse to oncoming shift.
[2018-04-19] MEDS ORDERED: NON-FORMULARY/PATIENT OWN MED (Fenofibrate, Micronized (Fenofibrate) 54 MG) PO SCH (09:00)
[2018-04-19] MEDS ORDERED: HYDROCHLOROTHIAZIDE 25 MG TAB PO SCH (09:00)
[2018-04-19] MEDS: FERROUS SULFATE (EC) 325 MG TAB PO SCH ×2 (09:44→21:57)
[2018-04-19] MEDS: SUCRALFATE (100 MG/ML) 10ML CUP PO SCH ×4 (09:44→20:38)
[2018-04-19] MEDS: CIPROFLOXACIN 400MG/D5W 200 ML IVPB SCH ×2 (09:44→20:38)
[2018-04-19] MEDS: LOSARTAN 25 MG TAB PO SCH (09:44)
[2018-04-19] MEDS: MULTIVITAMINS THERAPEUTIC TAB PO SCH (09:45)
[2018-04-19] MEDS: CHOLECALCIFEROL 1,000 UNIT TAB PO SCH (09:45)
[2018-04-19] MEDS: FUROSEMIDE 20 MG TAB PO SCH (09:45)
--- NOTE | 2018-04-19 09:48 | PN ---
Date/Time of Note Date/Time of Note DATE: 04/19/18 TIME: 09:44 Assessment/Plan VTE Prophylaxis Risk score (from Ns)>0 risk: 5 SCD applied (from [facility] [place]): Yes Pharmacological prophylaxis: NA/contraindicated Pharm contraindication: bleeding Lines/Catheters [facility]from [facility]): Peripheral IV Urinary Cath still in place: No Assessment/Plan Hospital Course SUBJECTIVE: No acute discomfort. Tolerating diet. No overt bleeding. OBJECTIVE: Vital signs-see below PHYSICAL EXAM: Constitutional: Elderly male, not in acute distress. Psych: nl mood/affect, no complaints Head: atraumatic, normocephalic Eyes: nl conjunctiva, nl sclera ENMT: mucosa pink and moist, nl external ears & nose Neck: non-tender, supple Respiratory: clear to auscultation, normal air movement Cardiovascular: nl pulses, regular rate and rhythm Gastrointestinal: Abdomen soft/nontender. bowel sounds active in all 4 quadrants. Musculoskeletal/extremities: nl extremities to inspection, motor strength equal bilaterally, no focal deficit. Normal pulses,no cyanosis, no edema. Neurological: Alert oriented 3,nl speech, nl strength Skin: nl turgor ASSESSMENT/PLAN: 82-year-old male, brought in with nausea/dominant pain/ vomiting. 1. Upper GI bleed, likely secondary to duodenal ulcer. -Status post EGD 04/18/2018 -Continue PPI/Carafate 2.Possible enteritis -Symptoms resolving -Continue Cipro and Flagyl. 3.Hypertension -Stable. Continue home medications except hydrochlorothiazide 4. CVA with right-sided deficit -In light of GI bleed, aspirin is contraindicated. 5. Leukocytosis, likely secondary to #2. -Resolved 6. Dyslipidemia -Continue home medications 7. Hypernatremia, likely secondary to dehydration -We will treat with IV fluids 8. Chronic pancreatitis -Stable 9. 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 Monitor H&H closely and discharge planning in a.m. Patient was seen in collaboration with . Result Diagram: 04/19/18 0508 04/19/18 0508 Results 24hrs Laboratory Tests Test 04/18/18 19:05 04/19/18 05:08 Hemoglobin 10.5 L 9.2 L Hematocrit 31.3 L 27.2 L Lipase 37 White Blood Count 9.9 # Red Blood Count 2.71 #L Mean Corpuscular Volume 100.4 Mean Corpuscular Hemoglobin 33.9 H Mean Corpuscular Hemoglobin Concent 33.8 Red Cell Distribution Width 13.1 Platelet Count 143 Mean Platelet Volume 11.7 H Immature Granulocytes % 0.400 Neutrophils % 77.3 H Lymphocytes % 14.9 L Monocytes % 7.2 Eosinophils % 0.0 Basophils % 0.2 Nucleated Red Blood Cells % 0.0 Immature Granulocytes # 0.040 H Neutrophils # 7.6 H Lymphocytes # 1.5 Monocytes # 0.7 Eosinophils # 0.0 Basophils # 0.0 Nucleated Red Blood Cells # 0.0 Sodium Level 147 H Potassium Level 4.0 Chloride Level 111 H Carbon Dioxide Level 27 Anion Gap 9 # Blood Urea Nitrogen 36 H Creatinine 1.11 Est Glomerular Filtrat Rate mL/min Glucose Level 114 Calcium Level 8.3 L Phosphorus Level 2.7 Magnesium Level 2.0 Total Bilirubin 0.2 Direct Bilirubin 0.00 Indirect Bilirubin 0.2 Aspartate Amino Transf (AST/SGOT) 24 # Alanine Aminotransferase (ALT/SGPT) 51 Alkaline Phosphatase 51 Total Protein 5.9 #L Albumin 3.0 #L Globulin 2.90 Albumin/Globulin Ratio 1.03 Exam/Review of Systems Exam Vitals Vital Signs Date Temp Pulse Resp B/P (MAP) Pulse Ox O2 O2 Flow FiO2 Time Delivery Rate 04/19/18 71 08:01 04/19/18 98.0 20 113/52 93 07:37 (72) 04/18/18 Nasal 2.0 17:18 Cannula Intake and Output 04/18/18 04/18/18 04/19/18 1515:00 23:00 07:00 IntakeIntake Total 100 ml 600 ml BalanceBalance 100 ml 600 ml Results Results 24hrs Laboratory Tests Test 04/18/18 19:05 04/19/18 05:08 Hemoglobin 10.5 L 9.2 L Hematocrit 31.3 L 27.2 L Lipase 37 White Blood Count 9.9 # Red Blood Count 2.71 #L Mean Corpuscular Volume 100.4 Mean Corpuscular Hemoglobin 33.9 H Mean Corpuscular Hemoglobin Concent 33.8 Red Cell Distribution Width 13.1 Platelet Count 143 Mean Platelet Volume 11.7 H Immature Granulocytes % 0.400 Neutrophils % 77.3 H Lymphocytes % 14.9 L Monocytes % 7.2 Eosinophils % 0.0 Basophils % 0.2 Nucleated Red Blood Cells % 0.0 Immature Granulocytes # 0.040 H Neutrophils # 7.6 H Lymphocytes # 1.5 Monocytes # 0.7 Eosinophils # 0.0 Basophils # 0.0 Nucleated Red Blood Cells # 0.0 Sodium Level 147 H Potassium Level 4.0 Chloride Level 111 H Carbon Dioxide Level 27 Anion Gap 9 # Blood Urea Nitrogen 36 H Creatinine 1.11 Est Glomerular Filtrat Rate mL/min Glucose Level 114 Calcium Level 8.3 L Phosphorus Level 2.7 Magnesium Level 2.0 Total Bilirubin 0.2 Direct Bilirubin 0.00 Indirect Bilirubin 0.2 Aspartate Amino Transf (AST/SGOT) 24 # Alanine Aminotransferase (ALT/SGPT) 51 Alkaline Phosphatase 51 Total Protein 5.9 #L Albumin 3.0 #L Globulin 2.90 Albumin/Globulin Ratio 1.03 Medications Medication Current Medications IV Flush (NS 3 ml) 3 ml PER PROTOCOL IV ; Start 04/18/18 at 14:00 Ondansetron HCl (Zofran Inj) 4 mg Q6H PRN IV NAUSEA/VOMITING; Start 04/18/18 at 14:00 Acetaminophen (Tylenol Tab) 650 mg Q6H PRN PO .PAIN 1-3 OR TEMP; Start 04/18/18 at 14:00 Pantoprazole (Protonix Iv) 40 mg BID@06,18 IV Last administered on 04/19/18at 05:16; Admin Dose 40 MG; Start 04/18/18 at 18:00 Sucralfate (Carafate Susp) 1 gm QID PO Last administered on 04/18/18at 20:53; Admin Dose 1 GM; Start 04/18/18 at 17:00 Cholecalciferol (Vitamin D) 2,000 unit DAILY PO ; Start 04/19/18 at 09:00 Diltiazem HCl (Cardizem) 30 mg Q8 PO Last administered on 04/19/18at 05:17; Admin Dose 30 MG; Start 04/18/18 at 14:00 Ferrous Sulfate (Ferrous Sulfate (Ec)) 325 mg BID PO Last administered on 04/18/18at 20:53; Admin Dose 325 MG; Start 04/18/18 at 21:00 Furosemide (Lasix) 20 mg DAILY PO ; Start 04/19/18 at 09:00 Hydrochlorothiazide (Hydrochlorothiazide) 25 mg DAILY PO ; Start 04/19/18 at 09:00 Losartan Potassium (Cozaar) 25 mg DAILY PO ; Start 04/19/18 at 09:00 Multivitamins Therapeutic (Theragran) 1 tab DAILY PO ; Start 04/19/18 at 09:00 Fenofibrate (Tricor) 48 mg DAILY PO ; Start 04/19/18 at 09:00 Ciprofloxacin/ Dextrose 200 ml @ 200 mls/hr Q12 IVPB Last administered on 04/18/18at 20:53; Admin Dose 200 MLS/HR; Start 04/18/18 at 18:00 Metronidazole 100 ml @ 100 mls/hr Q8 IVPB Last administered on 04/19/18at 05:17; Admin Dose 100 MLS/HR; Start 04/18/18 at 14:30 SHAQ WALLS NP Apr 19, 2018 09:48
[2018-04-19] MEDS: FENOFIBRATE 48 MG TAB PO SCH (09:49)
[2018-04-19] MEDS: SOD CHLORIDE 0.45% 1,000 ML IV SCH ×2 (09:51→23:20)
[2018-04-19] MEDS ORDERED: SOD CHLORIDE 0.9% 500 ML IV ONE (10:00)
--- NOTE | 2018-04-19 18:30 | NUR ---
EOSS: No acute events today during shift. Vital signs stable. No signs and symptoms of bleeding. Pt. denied abdominal pain. Hourly rounding complete. All needs meet. Bed in lowest position. Bed alarm on. Unable to obtain occult stool since pt. had no bowel movement. Will endorse. Pt. daughter came to visit and nurse updated pt' daughter about plan of care.
--- NOTE | 2018-04-19 19:37 | PN ---
Date/Time of Note Date/Time of Note DATE: 04/19/18 TIME: 19:32 Assessment/Plan VTE Prophylaxis Risk score (from Ns)>0 risk: 7 SCD applied (from Ns): Yes Pharmacological prophylaxis: NA/contraindicated Pharm contraindication: bleeding Lines/Catheters [facility] Type (from [facility] Peripheral IV Urinary Cath still in place: No Assessment/Plan Assessment/Plan Assessment: Coffee-ground emesis S/p EGD 04/18/18 -Gastritis -No bleeding gastric AVMs -Duodenal bulb ulcer Nausea/vomitingresolved Chronic pancreatitis on CT History of CVA Plan: Continue Protonix 40 mg twice daily for 2 months then wean Stool for H. pylori Monitor H&H Transfuse for hemoglobin less than 7.5 Avoid NSAIDs and aspirin Patient appears safe for outpatient management Patient seen in collaboration with Subjective: Patient is doing well. He denies abdominal pain, nausea or vomiting. No bowel movement today. Tolerating diet well. Hemoglobin is stable. Discussed results of EGD with the patient. Encouraged to avoid NSAIDs and aspirin and continue Protonix. Will follow up on stool test for H. pylori Results. PHYSICAL EXAMINATION: GENERAL: Well developed, well nourished, alert & oriented x 3, in no acute distress SKIN: No lesions, no stigmata chronic liver disease, no evidence of bleeding diathesis LYMPHATIC: No palpable lymphadenopathy. HEAD: Normocephalic, atraumatic, no tenderness. EYES: Pupils equal reactive to light and accommodation, full extraocular mo vements, sclera clear, non-icteric, no discharge. EARS/NOSE AND THROAT: Ears normal, nose normal, oropharynx normal, oral membranes well hydrated without lesions. NECK: Supple, no masses, thyroid normal, JVP within normal limits, carotids normal without bruits. CHEST: Inspection within normal limits. CARDIOVASCULAR: Heart: Regular rate and rhythm, no murmurs, gallops or rubs. Peripheral pulses present within normal limits, no cyanosis, clubbing or edemas. No pulsatile abdominal mass RESPIRATORY: Lungs clear to auscultation and percussion, no wheezing, no rubs GASTROINTESTINAL AND LIVER: Abdomen: Soft, obese, non tenderness, non-distended, no hernias, no masses, no organomegaly, no ascites, no guarding, no rebound tenderness, normoactive bowel sounds. Rectal: Deferred. GENITOURINARY: Male genitalia within normal limits. EXTREMITIES: No cyanosis, clubbing or edema. Result Diagram: 04/19/18 1802 04/19/18 0508 Results 24hrs Laboratory Tests Test 04/19/18 05:08 04/19/18 18:02 White Blood Count 9.9 # Red Blood Count 2.71 #L Hemoglobin 9.2 L 9.2 L Hematocrit 27.2 L 28.0 L Mean Corpuscular Volume 100.4 Mean Corpuscular Hemoglobin 33.9 H Mean Corpuscular Hemoglobin Concent 33.8 Red Cell Distribution Width 13.1 Platelet Count 143 Mean Platelet Volume 11.7 H Immature Granulocytes % 0.400 Neutrophils % 77.3 H Lymphocytes % 14.9 L Monocytes % 7.2 Eosinophils % 0.0 Basophils % 0.2 Nucleated Red Blood Cells % 0.0 Immature Granulocytes # 0.040 H Neutrophils # 7.6 H Lymphocytes # 1.5 Monocytes # 0.7 Eosinophils # 0.0 Basophils # 0.0 Nucleated Red Blood Cells # 0.0 Sodium Level 147 H Potassium Level 4.0 Chloride Level 111 H Carbon Dioxide Level 27 Anion Gap 9 # Blood Urea Nitrogen 36 H Creatinine 1.11 Est Glomerular Filtrat Rate mL/min Glucose Level 114 Hemoglobin A1c 5.3 Calcium Level 8.3 L Phosphorus Level 2.7 Magnesium Level 2.0 Total Bilirubin 0.2 Direct Bilirubin 0.00 Indirect Bilirubin 0.2 Aspartate Amino Transf (AST/SGOT) 24 # Alanine Aminotransferase (ALT/SGPT) 51 Alkaline Phosphatase 51 Total Protein 5.9 #L Albumin 3.0 #L Globulin 2.90 Albumin/Globulin Ratio 1.03 Triglycerides Level 107 Cholesterol Level 91 L LDL Cholesterol, Calculated 48 HDL Cholesterol 22 L Cholesterol/HDL Ratio 4.1 CC: THOMAS CANNON MD ; Exam/Review of Systems Exam Vitals Vital Signs Date Temp Pulse Resp B/P (MAP) Pulse Ox O2 O2 Flow FiO2 Time Delivery Rate 04/19/18 74 16:01 04/19/18 97.8 18 91/47 (62) 95 15:35 04/18/18 Nasal 2.0 17:18 Cannula Intake and Output 04/18/18 04/18/18 04/19/18 1515:00 23:00 07:00 IntakeIntake Total 100 ml 600 ml BalanceBalance 100 ml 600 ml Results Results 24hrs Laboratory Tests Test 04/19/18 05:08 04/19/18 18:02 White Blood Count 9.9 # Red Blood Count 2.71 #L Hemoglobin 9.2 L 9.2 L Hematocrit 27.2 L 28.0 L Mean Corpuscular Volume 100.4 Mean Corpuscular Hemoglobin 33.9 H Mean Corpuscular Hemoglobin Concent 33.8 Red Cell Distribution Width 13.1 Platelet Count 143 Mean Platelet Volume 11.7 H Immature Granulocytes % 0.400 Neutrophils % 77.3 H Lymphocytes % 14.9 L Monocytes % 7.2 Eosinophils % 0.0 Basophils % 0.2 Nucleated Red Blood Cells % 0.0 Immature Granulocytes # 0.040 H Neutrophils # 7.6 H Lymphocytes # 1.5 Monocytes # 0.7 Eosinophils # 0.0 Basophils # 0.0 Nucleated Red Blood Cells # 0.0 Sodium Level 147 H Potassium Level 4.0 Chloride Level 111 H Carbon Dioxide Level 27 Anion Gap 9 # Blood Urea Nitrogen 36 H Creatinine 1.11 Est Glomerular Filtrat Rate mL/min Glucose Level 114 Hemoglobin A1c 5.3 Calcium Level 8.3 L Phosphorus Level 2.7 Magnesium Level 2.0 Total Bilirubin 0.2 Direct Bilirubin 0.00 Indirect Bilirubin 0.2 Aspartate Amino Transf (AST/SGOT) 24 # Alanine Aminotransferase (ALT/SGPT) 51 Alkaline Phosphatase 51 Total Protein 5.9 #L Albumin 3.0 #L Globulin 2.90 Albumin/Globulin Ratio 1.03 Triglycerides Level 107 Cholesterol Level 91 L LDL Cholesterol, Calculated 48 HDL Cholesterol 22 L Cholesterol/HDL Ratio 4.1 Medications Medication Current Medications IV Flush (NS 3 ml) 3 ml PER PROTOCOL IV ; Start 04/18/18 at 14:00 Ondansetron HCl (Zofran Inj) 4 mg Q6H PRN IV NAUSEA/VOMITING; Start 04/18/18 at 14:00 Acetaminophen (Tylenol Tab) 650 mg Q6H PRN PO .PAIN 1-3 OR TEMP; Start 04/18/18 at 14:00 Pantoprazole (Protonix Iv) 40 mg BID@06,18 IV Last administered on 04/19/18at 18:12; Admin Dose 40 MG; Start 04/18/18 at 18:00 Sucralfate (Carafate Susp) 1 gm QID PO Last administered on 04/19/18at 18:12; Admin Dose 1 GM; Start 04/18/18 at 17:00 Cholecalciferol (Vitamin D) 2,000 unit DAILY PO Last administered on 04/19/18 09:45; Admin Dose 2,000 UNIT; Start 04/19/18 at 09:00 Diltiazem HCl (Cardizem) 30 mg Q8 PO Last administered on 04/19/18 14:10; Admin Dose 30 MG; Start 04/18/18 at 14:00 Ferrous Sulfate (Ferrous Sulfate (Ec)) 325 mg BID PO Last administered on 04/19/18 09:44; Admin Dose 325 MG; Start 04/18/18 at 21:00 Furosemide (Lasix) 20 mg DAILY PO Last administered on 04/19/18 09:45; Admin Dose 20 MG; Start 04/19/18 at 09:00 Losartan Potassium (Cozaar) 25 mg DAILY PO Last administered on 04/19/18 09:44; Admin Dose 25 MG; Start 04/19/18 at 09:00 Multivitamins Therapeutic (Theragran) 1 tab DAILY PO Last administered on 04/19/18 09:45; Admin Dose 1 TAB; Start 04/19/18 at 09:00 Fenofibrate (Tricor) 48 mg DAILY PO Last administered on 04/19/18 09:49; Admin Dose 48 MG; Start 04/19/18 at 09:00 Ciprofloxacin/ Dextrose 200 ml @ 200 mls/hr Q12 IVPB Last administered on 04/19/18 09:44; Admin Dose 200 MLS/HR; Start 04/18/18 at 18:00 Metronidazole 100 ml @ 100 mls/hr Q8 IVPB Last administered on 04/19/18 14:03; Admin Dose 100 MLS/HR; Start 04/18/18 at 14:30 Sodium Chloride 1,000 ml @ 75 mls/hr [id number] IV Last administered on 04/19/18 09:51; Admin Dose 75 MLS/HR; Start 04/19/18 at 10:00 SAI PIERCE NP Apr 19, 2018 19:37
[2018-04-20] VITALS (10 sets, daily range): BP systolic 98–118; BP diastolic 48–64; PULSE 68–110; RESP 18–19
[2018-04-20] MEDS: DILTIAZEM 30 MG TAB PO SCH ×2 (05:47→14:32)
--- NOTE | 2018-04-20 05:52 | NUR ---
END OF SHIFT REPORT NO COMPLAINT OF ABDOMINAL PAIN BUT COMPLAINED OF NAUSEA. NO VOMITING. FOUND IV OUT. DID NOT WANT TO HAVE IT REINSERTED. PATIENT SAID THAT HE FORGOT THAT HE HAS AN IV ON HIS RIGHT HAND. PATIENT ALERT AND ORIENTED BUT FORGETFUL. Addendum: 04/20/18 at 0634 by BAILEE MELCHOR RN DR CORDOVA INFORMED ABOUT REFUSAL FOR IV REINSERTION WITH ORDERS TO SHIFT TO [facility]AL [facility].
[2018-04-20] MEDS: PANTOPRAZOLE 40 MG INJ IV SCH (05:56)
[2018-04-20] MEDS: metroNIDAZOLE 500 MG/NS (PMX) 100 ML IVPB SCH (05:56)
[2018-04-20] MEDS ORDERED: PANTOPRAZOLE (EC) 40 MG TAB PO SCH (06:00)
[2018-04-20] MEDS ORDERED: metroNIDAZOLE 500 MG TAB PO SCH (06:00)
[2018-04-20] MEDS: FENOFIBRATE 48 MG TAB PO SCH (08:32)
[2018-04-20] MEDS: SUCRALFATE (100 MG/ML) 10ML CUP PO SCH ×2 (08:33→14:31)
[2018-04-20] MEDS: FUROSEMIDE 20 MG TAB PO SCH (08:33)
[2018-04-20] MEDS: CHOLECALCIFEROL 1,000 UNIT TAB PO SCH (08:33)
[2018-04-20] MEDS: MULTIVITAMINS THERAPEUTIC TAB PO SCH (08:33)
[2018-04-20] MEDS: FERROUS SULFATE (EC) 325 MG TAB PO SCH (08:33)
[2018-04-20] MEDS: LOSARTAN 25 MG TAB PO SCH (08:37)
--- NOTE | 2018-04-20 11:00 | PDOCDIS ---
Discharge Instructions CONDITION [id number] Patient Condition: [id number] Stable HOME CARE INSTRUCTIONS: [id number] Your diet recommendation is: [id number] Soft diet FOLLOW UP/APPOINTMENTS Follow-up Plan Discharged back to alf facility. Follow-up with 's office regarding EGD pathology report. SHAQ WALLS NP Apr 20, 2018 11:00
--- NOTE | 2018-04-20 11:07 | DS ---
Date/Time of Note Date/Time of Note DATE: 04/20/18 TIME: 11:04 Discharge Summary Admission/Discharge Info Admit Date/Time Apr 18, 2018 at 09:15 Discharge Date/Time Discharge Diagnosis 1. Upper GI bleed, likely secondary to duodenal ulcer. Resolved. 2.Possible gastroenteritis. Resolved 3.Hypertension 4. CVA with right-sided deficit 5. Leukocytosis, likely secondary to #2. 6. Dyslipidemia 7. Hypernatremia, likely secondary to dehydration 8. Chronic pancreatitis 9. Gastric AVM, incidental finding, not bleeding Patient Condition: Stable Consults , gastroenterology Procedures 04/14/2018. CT abdomen and pelvis. IMPRESSION: 1. No acute process in the imaged abdomen or pelvis. 2. Diverticulosis of the large bowel. No evidence of acute inflammation. 3. Small hiatal hernia and small bilateral fat containing inguinal hernias. 4. Cholecystectomy. 5. Chronic pancreatitis. 6. Aortic and coronary atherosclerosis. 7. 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 04/18/2018. EGD. Hospital Course 82-year-old male, who is also a custodial resident with multiple comorbidities including hypertension, CVA with right-sided deficit, dyslipidemia, chronic pancreatitis, brought in with nausea/dominant pain/ vomiting. CT abdomen and pelvis was unremarkable. Patient was noted with one episode of coffee-ground emesis for which he had a gastroenterology evaluation and underwent EGD on 04/18/2018 showed duodenal ulcer. EGD also showed nonbleeding mild AVM for which outpatient follow-up was recommended. Patient was continued on PPI and Carafate for duodenal ulcer.. Aspirin was held. He was also treated for possible gastroenteritis. His symptoms resolved. He was able to tolerate diet and activities well. Abdominal exam remained benign. No vomiting, nausea or other discomfort. No leukocytosis. Hemoglobin remained stable. No evidence of overt bleeding. Patient was also treated with IV fluids for hyponatremia secondary to dehydration which is resolved. At this time, patient is feeling back to his baseline and is very eager to be discharged back to the custodial. Case management arrange transportation and patient/custodial to follow-up with Dr. han office for EGD pathology report. Approximately 60 m spent on coordinating the discharge on this patient. Patient is an evaluation with Dr. Shi. Jermyn Whistle Active Scripts Ondansetron Hcl* (Zofran*) 4 Mg Tablet, 4 MG PO Q8H PRN for NAUSEA AND/OR VOMITING, #30 TAB Prov:JENNIE MILLER MD 04/18/18 Ciprofloxacin Hcl* (Ciprofloxacin Hcl*) 500 Mg Tablet, 500 MG PO BID for 5 Days, #10 TAB Prov:SEBASTIÁN BETHEA 04/08/18 Reported Medications Fenofibrate, Micronized (Fenofibrate) 54 Mg Tablet, 54 MG PO DAILY, TAB 04/18/18 Potassium Chloride* (K-Dur*) 10 Meq Tab.prt.sr, 10 MEQ PO DAILY, TAB 04/18/18 Losartan Potassium* (Losartan Potassium*) 25 Mg Tablet, 25 MG PO DAILY, TAB 04/18/18 Furosemide* (Furosemide*) 20 Mg Tablet, 20 MG PO DAILY, #60 TAB 04/18/18 Escitalopram Oxalate* (Escitalopram Oxalate*) 5 Mg Tablet, 5 MG PO DAILY, #30 TAB 04/18/18 Hydrochlorothiazide* (Hydrochlorothiazide*) 25 Mg Tab, 25 MG PO DAILY, #30 TAB 08/22/17 Multivitamin* (Daily Value*) 1 Each Tablet, 1 TAB PO DAILY, TAB 08/22/17 Omeprazole* (Omeprazole*) 20 Mg Capsule.dr, 20 MG PO AC BREAKFAST, #30 CAP 08/22/17 Diltiazem Hcl* (Cardizem CD*) 120 Mg Cap.sr.24h, 30 MG PO Q8, #30 CAP 08/22/17 Cholecalciferol* (Vitamin D3*) 1,000 Unit Tablet, 2000 UNIT PO DAILY, TAB 08/22/17 Aspirin* (Aspirin* Chew) 81 Mg Tab.chew, 81 MG PO DAILY, TAB.CHEW 02/20/16 Ferrous Sulfate* (Ferrous Sulfate*) 325 Mg Tabec, 325 MG PO BID, TAB 03/25/14 Discontinued Reported Medications Potassium Chloride* (Potassium Chloride*) 20 Meq Tablet.er, 10 MEQ PO DAILY, TAB.SA 08/22/17 Ascorbic Acid (Vitamin C) 500 Mg Tab, 500 MG PO DAILY, TAB 03/25/14 Discontinued Scripts Bismuth Subsalicylate* (Pepto-Bismol*) 262 Mg/15 Ml Oral.susp, 15 ML PO TID PRN for DIARRHEA, #24 OZ Prov:JENNIE MILLER MD 5/31/18 Follow-up Plan Discharged back to retirement facility. Follow-up with 's office regarding EGD pathology report. Primary Care Provider Care Physician No Primary Pending Labs Laboratory Tests Test 04/19/18 18:02 04/20/18 05:31 Hemoglobin 9.2 g/dl (14.0-18.0) 8.7 g/dl (14.0-18.0) Hematocrit 28.0 % (42.0-52.0) 25.7 % (42.0-52.0) White Blood Count 9.6 10^3/ul (4.8-10.8) Red Blood Count 2.54 10^6/ul (4.70-6.10) Mean Corpuscular Volume 101.2 fl (82.0-101.0) Mean Corpuscular Hemoglobin 34.3 pg (29.0-33.0) Mean Corpuscular 33.9 g/dl (32.0-37.0) Hemoglobin Concent Red Cell Distribution Width 13.2 % (11.5-14.5) Platelet Count 121 10^3/UL (140-415) Mean Platelet Volume 11.3 fl (7.4-10.4) Immature Granulocytes % 0.300 % (0.001-0.429) Neutrophils % 79.6 % (39.0-77.0) Lymphocytes % 14.1 % (15.0-51.0) Monocytes % 5.8 % (0.0-11.0) Eosinophils % 0.0 % (0.0-7.0) Basophils % 0.2 % (0.0-2.0) Nucleated Red Blood Cells % 0.0 /100WBC (0.0-0.0) Immature Granulocytes # 0.030 10^3/ul (0.0-0.031) Neutrophils # 7.6 10^3/ul (1.6-7.5) Lymphocytes # 1.4 10^3/ul (0.8-2.9) Monocytes # 0.6 10^3/ul (0.3-0.9) Eosinophils # 0.0 10^3/ul (0.0-0.5) Basophils # 0.0 10^3/ul (0.0-0.1) Nucleated Red Blood Cells # 0.0 10^3/ul (0.0-0.0) Sodium Level 143 mmol/L (135-144) Potassium Level 3.6 mmol/L (3.5-5.1) Chloride Level 108 mmol/L (97-110) Carbon Dioxide Level 26 mmol/L (21-31) Anion Gap 9 (5-13) Blood Urea Nitrogen 26 mg/dl (7-20) Creatinine 1.13 mg/dl (0.61-1.24) Est Glomerular Filtrat mL/min (>60) Rate mL/min Glucose Level 102 mg/dl (70-220) Calcium Level 8.3 mg/dl (8.4-10.2) SHAQ WALLS NP Apr 20, 2018 11:07
[2018-04-20] MEDS: SOD CHLORIDE 0.45% 1,000 ML IV SCH (12:40)
--- NOTE | 2018-04-20 12:43 | NUR ---
Case Mngt: Spoke with patient and talked to him regarding DC planning, patient provided his daughter's phone number - Catie ([phone]). Called and spoke with Catie and confirmed patient came from [facility] in [place] ([phone]) and would for him to go back there. Called [facility] and spoke with Mc. Per Mc, patient lived there and he can accept him back. Spoke with Alyse at 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 Patient, patient's nurse, patient's daughter and Mc at [facility] informed.
--- NOTE | 2018-04-20 14:45 | NUR ---
Nurses Note: Called Joann Frazier and gave report for patient Erickson Gamez. 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 PT. off manager monitoring. Pt. in orange gown. Will continue to monitor until quill picking machine operator.
--- NOTE | 2018-04-20 15:59 | NUR ---
Discharge Notes: Pt. is being picked up via Ambulance at this time. Pt. vital signs 111/55. No SOB. Oxygen saturation 92%. Discharge packed given to EMT. Medication Reconciliation form given to EMT. All belongings with patient. 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 Pt. will be accepted to room 214 at [facility].
== END 2018-04-20 16:04 | DRG 378 ==
LOC: E/R 05:30 → 6WM 09:15
PROVIDERS: ADMIT Family Medicine; ATTEND Family Medicine
PROC: 0DJ08ZZ Inspection of Upper Intestinal Tract, Via Natural or Artificial Opening Endoscopic (ICD-10-PCS; principal; 2018-04-18 16:00)
DX: K26.0 Acute duodenal ulcer with hemorrhage (principal); E87.0 Hyperosmolality and hypernatremia; K86.1 Other chronic pancreatitis; I69.351 Hemiplegia and hemiparesis following cerebral infarction affecting right dominant side; E86.0 Dehydration; E78.5 Hyperlipidemia, unspecified; K31.819 Angiodysplasia of stomach and duodenum without bleeding; I10 Essential (primary) hypertension; K44.9 Diaphragmatic hernia without obstruction or gangrene; K29.80 Duodenitis without bleeding; K21.9 Gastro-esophageal reflux disease without esophagitis; R11.2 Nausea with vomiting, unspecified; K52.9 Noninfective gastroenteritis and colitis, unspecified; Z79.82 Long term (current) use of aspirin; Z90.49 Acquired absence of other specified parts of digestive tract
CPT/HCPCS: 36415; 74176; 80048; 80053; 80061; 81003; 83036; 83690; 83735; 84100; 84484; 85014; 85018; 85025; 86850; 86870; 86900; 86901; 93005; 96374; A4310; C9113; J0744; J2250; J2405; J2765; J7040; P9612

== ENCOUNTER 2018-05-10 11:25 | Emergency (ER) | payer OTHER, MEDICAID ==
[~2018-05-10] VITALS: Ht 177.8 cm; Wt 90.9 kg
[~2018-05-10 11:25] MED LIST changes: -ASC500 PO; -ASPI-903 PO; -BISM262O23 PO; -CIPR500T4 PO; +ESCI5TAB10 PO; +FENO54TA7 PO; +FURO20TA3 PO; -HYDR25TA6 PO; +LOSA25TA12 PO; +ONDA4TAB8 PO; +POTA10TA37 PO; -POTA20TA96 PO
[2018-05-10 11:41] VITALS: Ht 177.8 cm; Wt 90.9 kg
[2018-05-10] MEDS ORDERED: ASPI-817 PO (11:46)
--- NOTE | 2018-05-10 12:28 | ERD ---
ER Documentation Chief Complaint Chief Complaint glf 2 days ago. no head injury reported. HPI This is an 82-year-old male with a history of hypertension who takes aspirin on a daily basis. The patient is wheelchair-bound secondary to previous CVA as he is unable to utilize his right lower extremity. The patient resides at a boarding care facility. Indicates that 2 days ago he had a fall from his wheelchair. He did hit the left side of his head. He is not complaining of a headache. He also indicates that today he was waiting for nursing assistance to help him to the bathroom. They were unable to calm therefore he attempted to get out of bed into his wheelchair but slipped off of the bed and hit his head again. Therefore at this time EMS was called and the patient was transferred to be further evaluated. The patient however denies a headache or neck pain. He denies any chest pain he has no shortness of breath and he denies any back pain or pain in his lower extremities. ROS All systems reviewed and are negative except as per history of present illness. Medications Home Meds Reported Medications Aspirin* (Aspirin* EC) 81 Mg Tablet.dr, 81 MG PO DAILY, TAB 05/10/18 Fenofibrate, Micronized (Fenofibrate) 54 Mg Tablet, 54 MG PO DAILY, TAB 04/18/18 Potassium Chloride* (K-Dur*) 10 Meq Tab.prt.sr, 10 MEQ PO DAILY, TAB 04/18/18 Losartan Potassium* (Losartan Potassium*) 25 Mg Tablet, 25 MG PO DAILY, TAB 04/18/18 Furosemide* (Furosemide*) 20 Mg Tablet, 20 MG PO DAILY, #60 TAB 04/18/18 Escitalopram Oxalate* (Escitalopram Oxalate*) 5 Mg Tablet, 5 MG PO DAILY, #30 TAB 04/18/18 Multivitamin* (Daily Value*) 1 Each Tablet, 1 TAB PO DAILY, TAB 08/22/17 Cholecalciferol* (Vitamin D3*) 1,000 Unit Tablet, 2000 UNIT PO DAILY, TAB 08/22/17 Ferrous Sulfate* (Ferrous Sulfate*) 325 Mg Tabec, 325 MG PO BID, TAB 03/25/14 Discontinued Reported Medications Omeprazole* (Omeprazole*) 20 Mg Capsule., 20 MG PO AC BREAKFAST, #30 CAP 08/22/17 Diltiazem Hcl* (Cardizem CD*) 120 Mg Cap.sr.24h, 30 MG PO Q8, #30 CAP 08/22/17 Discontinued Scripts Ondansetron Hcl* (Zofran*) 4 Mg Tablet, 4 MG PO Q8H PRN for NAUSEA AND/OR VOMITING, #30 TAB Prov:JENNIE MILLER MD 04/18/18 Allergies Allergies: Coded Allergies: lovastatin (Verified Allergy, Severe, RASH, 05/10/18) zolpidem (Unverified Allergy, Unknown, 05/10/18) Rash and itching PMhx/Soc History of Surgery: Yes Anesthesia Reaction: No Hx Respiratory Disorders: No Hx Cardiac Disorders: Yes Hx Psychiatric Problems: No Hx Alcohol Use: No Hx Substance Use: No Hx Tobacco Use: No Smoking Status: Never smoker Physical Exam Vitals Vital Signs Date Temp Pulse Resp B/P (MAP) Pulse Ox O2 O2 Flow FiO2 Time Delivery Rate 05/10/18 98.2 76 18 129/76 98 11:41 (93) Physical Exam Constitutional:Well-developed. Well-nourished. HEENT:Normocephalic. Atraumatic.Pupils were equal round reactive to light. Moist mucous membranes.No tonsillar exudates. No nasal septal hematoma. No hemotympanum. Neck: No nuchal rigidity. No lymphadenopathy. No posterior cervical spine tenderness or step-offs. Respiratory: Not using accessory muscles of respiration.Lungs were clear to auscultation bilaterally. No rhonchi. No rales. No wheezing. Cardiovascular: Regular rate regular rhythm.No murmurs. No rubs were appreciated.S1, S2 normal. Distal pulses are palpable 2+ bilaterally. GI: Abdomen was soft. Nontender. Non Distended. No pulsatile abdominal masses or bruits. No rebound. No guarding. Bowel sounds were present and normal. Muscle skeletal: Full range of motion of both the upper extremities. Patient is unable to lift the right lower extremity but this is his baseline. Full range of motion of the left lower extremity.Normal muscle tone.No assymetrical calf tenderness or swelling. Skin: No petechia, no purpura. No lesions on the palms or the soles of the feet. No maculopapular rash. NEURO: Patient was alert, awake, orientated x3.No facial droop. Gait not observed as patient is wheelchair-bound.Speech had regular rate and rhythm. No focal neurological deficits. Procedures/MDM This is a very pleasant 82-year-old male. The patient had a mechanical slip and fall from bed landing onto a hardwood surface. However this resulted in his second blunt head trauma in the past several days. I obtained a CT scan of the patient's head and there was no intracerebral hemorrhage mass-effect or midline shift. The patient had no acute focal neurological deficits. I obtained an EKG and there was no evidence of cardiac arrhythmia. 12 Lead EKG tracing ordered and reviewed by myself showed: Normal sinus rhythm of 72 bpm and no arrhythmia. [place] interval normal. QRS duration normal. No ST segment elevation No ST segment depression. No changes consistent with acute ischemia. The patient was refusing ancillary laboratory work and I did not feel it was req uired. Again this was a mechanical slip and fall. At this time the patient stated he felt comfortable being discharged back to his boarding care facility. He was refusing analgesic medication and the patient was discharged home in fair condition. They were instructed to return to the emergency department at any time if there was any worsening of their condition. The patient stated they would follow up with their PCP in the next 24-48 hours to initiate a suitable medication regimen under the care of their PCP as well as to allow their PCP to monitor any drug reactions. The patient was discharged home with prescriptions after they gave informed consent to the new medication. They were also fully informed by myself on the adverse effects and adverse drug interactions in order to provide adequate safeguards to prevent possible adverse reactions to medications. Departure Diagnosis: Primary Impression: Fall with no significant injury Encounter type: initial encounter Qualified Codes: W19.XXXA - Unspecified fall, initial encounter Additional Impression: Blunt head trauma Encounter type: initial encounter Qualified Codes: S09.8XXA - Other specified injuries of head, initial encounter Condition: Fair FÁTIMA OLIVARES MD May 10, 2018 12:21
[2018-05-10 15:43] VITALS: BP 122/59; PULSE 70; RESP 18
== END 2018-05-10 15:40 | disposition home or self-care (01) ==
LOC: E/R 11:25
DX: S09.8XXA Other specified injuries of head, initial encounter (principal); I10 Essential (primary) hypertension; W06.XXXA Fall from bed, initial encounter; Y92.9 Unspecified place or not applicable; Z79.82 Long term (current) use of aspirin
CPT/HCPCS: 70450; 93005

== ENCOUNTER 2018-09-28 08:58 | Inpatient (IN) | payer OTHER ==
[~2018-09-28] VITALS: Ht 177.8 cm; Wt 93.5 kg
[~2018-09-28 08:58] MED LIST changes: +ASPI-817 PO; -DILT120C77 PO; -OMEP20CA16 PO; -ONDA4TAB8 PO
[2018-09-28] MEDS ORDERED: ONDANSETRON 4 MG INJ IV STA (09:01)
[2018-09-28] MEDS ORDERED: PANTOPRAZOLE IV 80 MG in SOD CHLORIDE 0.9% 100 ML IV STA (09:01)
[2018-09-28] MEDS ORDERED: PANTOPRAZOLE IV 80 MG in SOD CHLORIDE 0.9% 100 ML IVPB STA (09:01)
[2018-09-28] MEDS ORDERED: FAMO20TA18 PO (09:57)
[2018-09-28] MEDS ORDERED: ERGO2000 PO (09:58)
[2018-09-28] MEDS ORDERED: ESCI5TAB PO (09:59)
--- NOTE | 2018-09-28 10:16 | ERD ---
ER Documentation Chief Complaint Chief Complaint GI bleed HPI 83-year-old male presents by paramedics after vomiting blood. Patient was apparently in his normal state of health until this morning at which time he had 2 episodes of hematemesis involving dark red and bloody emesis. Patient had no significant abdominal pain. He also may have had melena as well. Patient reports no significant abdominal pain, fevers, chills. I have reviewed the garment folder pre-hospital care. Pre-hospital vital signs were reviewed. Pre-hospital diagnostic tests were reviewed. According to the paramedics, there was a significant amount of emesis in the field Upon arrival, patient reports no abdominal pain, shortness of breath, chest pain or other symptoms at this time. ROS All systems reviewed and are negative except as per history of present illness. Medications Home Meds Reported Medications Escitalopram Oxalate* (Lexapro*) 5 Mg Tablet, 2.5 MG PO DAILY, #30 TAB 09/28/18 Ergocalciferol (Vitamin D2) (VITAMIN D2) 2,000 Unit Tablet, 2000 UNIT PO DAILY, TAB 09/28/18 Famotidine* (Famotidine*) 20 Mg Tablet, 20 MG PO DAILY, #30 TAB 09/28/18 Aspirin* (Aspirin* EC) 81 Mg Tablet.dr, 81 MG PO DAILY, TAB 05/10/18 Fenofibrate, Micronized (Fenofibrate) 54 Mg Tablet, 54 MG PO DAILY, TAB 04/18/18 Multivitamin* (Daily Value*) 1 Each Tablet, 1 TAB PO DAILY, TAB 08/22/17 Discontinued Reported Medications Potassium Chloride* (K-Dur*) 10 Meq Tab.prt.sr, 10 MEQ PO DAILY, TAB 04/18/18 Losartan Potassium* (Losartan Potassium*) 25 Mg Tablet, 25 MG PO DAILY, TAB 04/18/18 Furosemide* (Furosemide*) 20 Mg Tablet, 20 MG PO DAILY, #60 TAB 04/18/18 Escitalopram Oxalate* (Escitalopram Oxalate*) 5 Mg Tablet, 5 MG PO DAILY, #30 TAB 04/18/18 Cholecalciferol* (Vitamin D3*) 1,000 Unit Tablet, 2000 UNIT PO DAILY, TAB 08/22/17 Ferrous Sulfate* (Ferrous Sulfate*) 325 Mg Tabec, 325 MG PO BID, TAB 03/25/14 Allergies Allergies: Coded Allergies: lovastatin (Verified Allergy, Severe, RASH, 09/28/18) zolpidem (Unverified Allergy, Unknown, 09/28/18) Rash and itching PMhx/Soc History of Surgery: Yes Anesthesia Reaction: No Hx Neurological Disorder: Yes (STROKE (14-15 YEARS AGO)) Hx Respiratory Disorders: No Hx Cardiac Disorders: Yes (HTN, HIGH CHOLESTEROL) Hx Psychiatric Problems: No Hx Miscellaneous Medical Probl: Yes (HTN, HYPERLIPDEMIA, BPH, DEMENTIA, ANEMIA, GERD, GI BLEED) Hx Alcohol Use: No Hx Substance Use: No Hx Tobacco Use: No Smoking Status: Never smoker FmHx Noncontributory for chief complaint Physical Exam Vitals Vital Signs Date Temp Pulse Resp B/P (MAP) Pulse Ox O2 O2 Flow FiO2 Time Delivery Rate 09/28/18 98.0 96 23 107/73 96 09:06 (84) 09/28/18 Nasal 2 09:05 Cannula Physical Exam GENERAL: Frail, elderly male. He has a significant amount of upper GI bleed emesis on his shirt and gown HEENT: Pupils equal, round, and reactive to light. EOMI. There is no scleral icterus. NECK: C-spine is soft and supple, there is no meningismus. There is no cervical lymphadenopathy. LUNGS: Clear to auscultation bilaterally. There are no rales, wheezes or rhonchi. HEART: Regular rate and rhythm, no murmurs, clicks, rubs or gallops. ABDOMEN: Soft, non-tender, non-distended. There are bowel sounds in all four quadrants. No rebound or guarding. EXTREMITIES: There is no peripheral cyanosis or edema. No focal swelling or erythema. NEURO: The patient moves all four extremities with 5/5 strength. Cranial nerves II - XII are intact. Normal gait. Alert and oriented SKIN: There is no apparent rash or petechiae. HEME/LYMPHATIC: There is no evidence of excessive bruising or lymphedema. PSYCHIATRIC: The patient does not appear anxious or depressed. Result Diagram: 09/28/1817 09/28/18916 Results 24 hrs Laboratory Tests Test 09/28/18 09:17 White Blood Count 11.6 10^3/ul Red Blood Count 3.71 10^6/ul Hemoglobin 11.7 g/dl Hematocrit 35.2 % Mean Corpuscular Volume 94.9 fl Mean Corpuscular Hemoglobin 31.5 pg Mean Corpuscular Hemoglobin Concent 33.2 g/dl Red Cell Distribution Width 14.6 % Platelet Count 162 10^3/UL Mean Platelet Volume 11.6 fl Immature Granulocytes % 0.500 % Neutrophils % 81.0 % Lymphocytes % 12.6 % Monocytes % 5.6 % Eosinophils % 0.0 % Basophils % 0.3 % Nucleated Red Blood Cells % 0.0 /100WBC Immature Granulocytes # 0.060 10^3/ul Neutrophils # 9.4 10^3/ul Lymphocytes # 1.5 10^3/ul Monocytes # 0.7 10^3/ul Eosinophils # 0.0 10^3/ul Basophils # 0.0 10^3/ul Nucleated Red Blood Cells # 0.0 10^3/ul Prothrombin Time 13.0 Sec Prothrombin Time Ratio 1.0 INR International Normalized Ratio 0.97 Activated Partial Thromboplast Time 30.2 Sec Sodium Level 144 mmol/L Potassium Level 4.8 mmol/L Chloride Level 109 mmol/L Carbon Dioxide Level 27 mmol/L Anion Gap 8 Blood Urea Nitrogen 44 mg/dl Creatinine 0.97 mg/dl Est Glomerular Filtrat Rate mL/min mL/min Glucose Level 135 mg/dl Calcium Level 9.1 mg/dl Total Bilirubin 0.6 mg/dl Direct Bilirubin 0.00 mg/dl Indirect Bilirubin 0.6 mg/dl Aspartate Amino Transf (AST/SGOT) 25 IU/L Alanine Aminotransferase (ALT/SGPT) 24 IU/L Alkaline Phosphatase 52 IU/L Troponin I < 0.012 ng/ml Total Protein 7.7 g/dl Albumin 4.0 g/dl Globulin 3.70 g/dl Albumin/Globulin Ratio 1.08 Current Medications Medications Dose Sig/Eve Start Time Status Last (Trade) Ordered Route PRN Stop Time Admin Dose Reason Admin Pantoprazole 100 ml @ ONCE STAT 09/28/18 DC 09/28/18 80 mg/Sodium 400 mls/hr IVPB 09:01 09/28/18 09:32 Chloride 09:15 Pantoprazole 100 ml @ ONCE STAT 09/28/18 80 mg/Sodium 10 mls/hr IV 09:01 09/28/18 Chloride 19:00 Ondansetron 4 mg ONCE STAT 09/28/18 DC 09/28/18 HCl (Zofran IV 09:01 09/28/18 09:32 Inj) 09:03 Procedures/MDM Patient was taken to a room, seen and evaluated. Comfort measures were initiated. An NG tube was placed Diagnostic tests were ordered and reviewed. 3 LEAD RHYTHM STRIP: Normal sinus rhythm without ectopy EK lead EKG reviewed by myself: Normal Sinus Rhythm Normal [place] and intervals No ST elevation, depression, or T wave inversion Impression: Normal EKG RADIOLOGY: Reviewed with the radiologist CONSULTATION: Hospitalist was notified for admission Dr. Arroyo was consulted for GI REEVALUATION: 1010: Patient remained hemodynamically stable. NG tube suction showed dark red blood. Patient's vital signs remained stable and there was no further hematemesis noted. Diagnostic tests were appreciated and arrangements were made for admission to the hospital MEDICAL DECISION MAKIN-year-old male with a known history of peptic and duodenal ulcer disease presents the emergency department a significant GI bleed. Patient's hemoglobin is adequate right now not requiring emergent transfusion and his vital signs have remained stable. However, he is obviously at high risk with a large volume hematemesis as well as his aspirin therapy. Patient has been started on Protonix IV and drip with GI consultation pending. He will be admitted to the hospital for following of his hemoglobins, consideration of endoscopy and further treatment. CRITICAL CARE: Time:>35 minutes Patient has a significant chance of clinical deterioration Treatments/Evaluations: Close monitoring and treatment of unstable vital signs, cardiorespiratory, and neurologic status, while maintaining tight balance of fluid, respiratory, and cardiac interventions. Departure Diagnosis: Primary Impression: Upper GI bleed Condition: Serious TONI TAVERAS Sep 28, 2018 10:16
[2018-09-28] MEDS ORDERED: morphine 2 MG INJ IV PRN (10:30)
[2018-09-28] MEDS ORDERED: ONDANSETRON 4 MG INJ IV PRN ×2 (10:30)
[2018-09-28] MEDS ORDERED: ACETAMINOPHEN 325 MG TAB PO PRN (10:30)
[2018-09-28] MEDS ORDERED: NACL 0.9% 3 ML SYG IV SCH (10:30)
[2018-09-28] MEDS: SOD CHLORIDE 0.9% 1,000 ML IV SCH ×2 (10:38→22:09)
[2018-09-28] MEDS ORDERED: OLANZAPINE 10 MG VIAL IM ONE (11:00)
--- NOTE | 2018-09-28 11:16 | HP ---
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 Currently patient is feeling well, no abdominal pain, no chest pain, no shortness of breath, no headache, no leg pain. Patient states that he feels well and does not know why that he threw up. Patient appears to have some cognitive deficiency however this may be long-term and states that he did not know that he was diagnosed with an ulcer during his previous admission. Objective Physical exam General: Patient is laying in bed and answers questions appropriately Mentation: Patient is alert and oriented x2, Head: Normocephalic atraumatic Eyes: EOMI, pupils reactive to light Neck: Supple, nontender, midline Respiratory: Clear to auscultation bilaterally Cardiovascular: regular rate, no obvious murmurs Gastrointestinal: non-tender to palpation, bowel sounds heard. Neurological: Moves all extremities spontaneously Skin: No new skin lesions Assessment and plan Upper GI bleed -Patient having coffee-ground emesis -IV fluid -N.p.o. -GI consultation, EGD likely tomorrow -Protonix drip -NG tube was inserted however not getting much output History of duodenal ulcer and AV malformation -Patient had EGD done approximately 7 months ago History of CVA -Chronic right lower extremity deficit however this is mild and not severe, appears patient was also on aspirin, hold aspirin for now Mood disorder with possible dementia -Continue home meds when able Chronic pancreatitis -No abdominal issues at this time, monitor Disposition -Keep n.p.o., IV fluid, monitor hemoglobin, EGD likely tomorrow. Result Diagram: 09/28/1817 09/28/18 0917 Results 24hrs Laboratory Tests Test 09/28/18 09:17 White Blood Count 11.6 #H Red Blood Count 3.71 #L Hemoglobin 11.7 #L Hematocrit 35.2 #L Mean Corpuscular Volume 94.9 Mean Corpuscular Hemoglobin 31.5 Mean Corpuscular Hemoglobin Concent 33.2 Red Cell Distribution Width 14.6 H Platelet Count 162 # Mean Platelet Volume 11.6 H Immature Granulocytes % 0.500 H Neutrophils % 81.0 H Lymphocytes % 12.6 L Monocytes % 5.6 Eosinophils % 0.0 Basophils % 0.3 Nucleated Red Blood Cells % 0.0 Immature Granulocytes # 0.060 H Neutrophils # 9.4 H Lymphocytes # 1.5 Monocytes # 0.7 Eosinophils # 0.0 Basophils # 0.0 Nucleated Red Blood Cells # 0.0 Prothrombin Time 13.0 Prothrombin Time Ratio 1.0 INR International Normalized Ratio 0.97 Activated Partial Thromboplast Time 30.2 Sodium Level 144 Potassium Level 4.8 Chloride Level 109 Carbon Dioxide Level 27 Anion Gap 8 Blood Urea Nitrogen 44 H Creatinine 0.97 Est Glomerular Filtrat Rate mL/min Glucose Level 135 Calcium Level 9.1 Total Bilirubin 0.6 Direct Bilirubin 0.00 Indirect Bilirubin 0.6 Aspartate Amino Transf (AST/SGOT) 25 Alanine Aminotransferase (ALT/SGPT) 24 Alkaline Phosphatase 52 Troponin I < 0.012 Total Protein 7.7 Albumin 4.0 Globulin 3.70 H Albumin/Globulin Ratio 1.08 HPI/ROS Admit Date/Time Admit Date/Time PMH/Family/Social Past Medical History Medications Current Medications Pantoprazole 80 mg/Sodium Chloride 100 ml @ 10 mls/hr ONCE STAT IV Last administered on 09/28/18at 10:38; Admin Dose 10 MLS/HR; Start 09/28/18 at 09:01; Stop 09/28/18 at 19:00 Ondansetron HCl (Zofran Inj) 4 mg ER BRIDGE PRN IV NAUSEA/VOMITING; Start at 10:30; Stop 09/29/18 at 10:29 Acetaminophen (Tylenol Tab) 650 mg ER BRIDGE PRN PO .MILD PAIN 1-3 OR TEMP; Start 09/28/18 at 10:30; Stop 09/29/18 at 10:29 Sodium Chloride 1,000 ml @ 100 mls/hr Q10H IV Last administered on 09/28/18at 10:38; Admin Dose 100 MLS/HR; Start 09/28/18 at 10:27 IV Flush (NS 3 ml) 3 ml PER PROTOCOL IV ; Start 09/28/18 at 10:30 Ondansetron HCl (Zofran Inj) 4 mg Q6H PRN IV NAUSEA/VOMITING; Start 09/28/18 at 10:30 Morphine Sulfate (morphine) 2 mg Q4H PRN IV .PAIN 7-10; Start 09/28/18 at 10:30 Pantoprazole 80 mg/Sodium Chloride 100 ml @ 10 mls/hr Q10H IV ; Start 09/28/18 at 20:30 Olanzapine (Zyprexa) 5 mg Q12 PRN IM agitation; Start 09/28/18 at 11:30 Coded Allergies: lovastatin (Verified Allergy, Severe, RASH, 09/28/18) zolpidem (Unverified Allergy, Unknown, 09/28/18) Rash and itching Past Surgical History Past Surgical Hx: cholecystectomy Social History Smoking Status: Never smoker Exam/Review of Systems Vital Signs Vitals Vital Signs Date Temp Pulse Resp B/P (MAP) Pulse Ox O2 O2 Flow FiO2 Time Delivery Rate 09/28/18 98.0 96 23 107/73 96 09:06 (84) 09/28/18 Nasal 2 09:05 Cannula JENNIE LAWSON Sep 28, 2018 11:16
--- NOTE | 2018-09-28 11:17 | CONS ---
Assessment/Plan Assessment/Plan Hospital Course (Demo Recall) Summary Assessment and Plan: Assessment: Hematemesis History of duodenal ulcer History of gastric AVMs History of CVA Plan: DC NG tube Continue PPI drip EGD tomorrow in am Endoscopy - risks/benefits/alternatives/indications of procedure and sedation/anesthesia discussed with patient who states understanding and gives informed consent to proceed. PARQ held and questions were answered. Patient seen in collaboration with Dr. Arroyo CC: THOMAS ARROYO MD ; Consultation Date/Type/Reason Admit Date/Time Date of Consultation: Sep 28, 2018 Type of Consult GI Reason for Consultation Coffee-ground emesis Date/Time of Note DATE: 09/28/18 TIME: 11:07 Hx of Present Illness This is an 83-year-old male with past medical history c of CVA, upper GI bleed who presented to the hospital with complaints of hematemesis. Patient states he was in usual state of health until he felt nauseated and felt stated this morning with episode of coffee-ground emesis he was seen to the ED for further evaluation. Here an NG tube was placed with minimal output hemoglobin on admission was noted to be 11.7 with normal indices and a mild leukocytosis of 11.6 he is previously had an upper endoscopy on April 18 of this year by Dr. Esparza, showing a duodenal ulcer not currently bleeding and gastric AVMs. Currently patient denies abdominal pain, unclear if patient previously had melena, and he is not aware of medications he takes at home. Discussed plans for upper endoscopy. I reviewed risk/benefits of sedation and procedure patient verbalized understanding is agreeable Review of Systems: A 12 system, review was conducted and is negative except as noted in the HPI or here. Past Medical History Home Meds Reported Medications Escitalopram Oxalate* (Lexapro*) 5 Mg Tablet, 2.5 MG PO DAILY, #30 TAB 09/28/18 Ergocalciferol (Vitamin D2) (VITAMIN D2) 2,000 Unit Tablet, 2000 UNIT PO DAILY, TAB 09/28/18 Famotidine* (Famotidine*) 20 Mg Tablet, 20 MG PO DAILY, #30 TAB 09/28/18 Aspirin* (Aspirin* EC) 81 Mg Tablet., 81 MG PO DAILY, TAB 05/10/18 Fenofibrate, Micronized (Fenofibrate) 54 Mg Tablet, 54 MG PO DAILY, TAB 04/18/18 Multivitamin* (Daily Value*) 1 Each Tablet, 1 TAB PO DAILY, TAB 08/22/17 Discontinued Reported Medications Potassium Chloride* (K-Dur*) 10 Meq Tab.prt.sr, 10 MEQ PO DAILY, TAB 04/18/18 Losartan Potassium* (Losartan Potassium*) 25 Mg Tablet, 25 MG PO DAILY, TAB 04/18/18 Furosemide* (Furosemide*) 20 Mg Tablet, 20 MG PO DAILY, #60 TAB 04/18/18 Escitalopram Oxalate* (Escitalopram Oxalate*) 5 Mg Tablet, 5 MG PO DAILY, #30 TAB 04/18/18 Cholecalciferol* (Vitamin D3*) 1,000 Unit Tablet, 2000 UNIT PO DAILY, TAB 08/22/17 Ferrous Sulfate* (Ferrous Sulfate*) 325 Mg Tabec, 325 MG PO BID, TAB 03/25/14 Medications Current Medications Pantoprazole 80 mg/Sodium Chloride 100 ml @ 10 mls/hr ONCE STAT IV Last administered on 09/28/18at 10:38; Admin Dose 10 MLS/HR; Start 09/28/18 at 09:01; Stop 09/28/18 at 19:00 Ondansetron HCl (Zofran Inj) 4 mg ER BRIDGE PRN IV NAUSEA/VOMITING; Start 09/28/18 at 10:30; Stop 09/29/18 at 10:29 Acetaminophen (Tylenol Tab) 650 mg ER BRIDGE PRN PO .MILD PAIN 1-3 OR TEMP; Start 09/28/18 at 10:30; Stop 09/29/18 at 10:29 Sodium Chloride 1,000 ml @ 100 mls/hr Q10H IV Last administered on 09/28/18at 1 0:38; Admin Dose 100 MLS/HR; Start 09/28/18 at 10:27 IV Flush (NS 3 ml) 3 ml PER PROTOCOL IV ; Start 09/28/18 at 10:30 Ondansetron HCl (Zofran Inj) 4 mg Q6H PRN IV NAUSEA/VOMITING; Start 09/28/18 at 10:30 Morphine Sulfate (morphine) 2 mg Q4H PRN IV .PAIN 7-10; Start 09/28/18 at 10:30 Pantoprazole 80 mg/Sodium Chloride 100 ml @ 10 mls/hr Q10H IV ; Start 09/28/18 at 20:30 Allergies: Coded Allergies: lovastatin (Verified Allergy, Severe, RASH, 09/28/18) zolpidem (Unverified Allergy, Unknown, 09/28/18) Rash and itching Past Surgical History Past Surgical Hx: cholecystectomy Social History Smoking Status: Never smoker Exam/Review of Systems Exam Vitals Vital Signs Date Temp Pulse Resp B/P (MAP) Pulse Ox O2 O2 Flow FiO2 Time Delivery Rate 09/28/18 98.0 96 23 107/73 96 09:06 (84) 09/28/18 Nasal 2 09:05 Cannula Exam PHYSICAL EXAMINATION: GENERAL: Alert & oriented x 3, in no acute distress SKIN: No lesions HEAD: Normocephalic, atraumatic, no tenderness. EYES: Pupils equal reactive to light and accommodation, no discharge. EARS/NOSE AND THROAT: Ears normal, nose normal. NECK: Supple, no masses CHEST: Inspection within normal limits. CARDIOVASCULAR: Heart: Regular rate and rhythm, no murmurs, gallops or rubs. RESPIRATORY: Lungs clear to auscultation GASTROINTESTINAL AND LIVER: Abdomen: Soft, non tenderness, non-distended, no hernias, no masses, no organomegaly, normoactive bowel sounds. Rectal: Deferred. EXTREMITIES: No cyanosis, clubbing or edema. Results Result Diagram: 09/28/18 0917 09/28/18 0917 Results 24hrs Laboratory Tests Test 09/28/18 09:17 White Blood Count 11.6 #H Red Blood Count 3.71 #L Hemoglobin 11.7 #L Hematocrit 35.2 #L Mean Corpuscular Volume 94.9 Mean Corpuscular Hemoglobin 31.5 Mean Corpuscular Hemoglobin Concent 33.2 Red Cell Distribution Width 14.6 H Platelet Count 162 # Mean Platelet Volume 11.6 H Immature Granulocytes % 0.500 H Neutrophils % 81.0 H Lymphocytes % 12.6 L Monocytes % 5.6 Eosinophils % 0.0 Basophils % 0.3 Nucleated Red Blood Cells % 0.0 Immature Granulocytes # 0.060 H Neutrophils # 9.4 H Lymphocytes # 1.5 Monocytes # 0.7 Eosinophils # 0.0 Basophils # 0.0 Nucleated Red Blood Cells # 0.0 Prothrombin Time 13.0 Prothrombin Time Ratio 1.0 INR International Normalized Ratio 0.97 Activated Partial Thromboplast Time 30.2 Sodium Level 144 Potassium Level 4.8 Chloride Level 109 Carbon Dioxide Level 27 Anion Gap 8 Blood Urea Nitrogen 44 H Creatinine 0.97 Est Glomerular Filtrat Rate mL/min Glucose Level 135 Calcium Level 9.1 Total Bilirubin 0.6 Direct Bilirubin 0.00 Indirect Bilirubin 0.6 Aspartate Amino Transf (AST/SGOT) 25 Alanine Aminotransferase (ALT/SGPT) 24 Alkaline Phosphatase 52 Troponin I < 0.012 Total Protein 7.7 Albumin 4.0 Globulin 3.70 H Albumin/Globulin Ratio 1.08 Medications Medication Current Medications Pantoprazole 80 mg/Sodium Chloride 100 ml @ 10 mls/hr ONCE STAT IV Last administered on 09/28/18at 10:38; Admin Dose 10 MLS/HR; Start 09/28/18 at 09:01; Stop 09/28/18 at 19:00 Ondansetron HCl (Zofran Inj) 4 mg ER BRIDGE PRN IV NAUSEA/VOMITING; Start 09/28/18 at 10:30; Stop 09/29/18 at 10:29 Acetaminophen (Tylenol Tab) 650 mg ER BRIDGE PRN PO .MILD PAIN 1-3 OR TEMP; Start 09/28/18 at 10:30; Stop 09/29/18 at 10:29 Sodium Chloride 1,000 ml @ 100 mls/hr Q10H IV Last administered on 09/28/18at 10:38; Admin Dose 100 MLS/HR; Start 09/28/18 at 10:27 IV Flush (NS 3 ml) 3 ml PER PROTOCOL IV ; Start 09/28/18 at 10:30 Ondansetron HCl (Zofran Inj) 4 mg Q6H PRN IV NAUSEA/VOMITING; Start 09/28/18 at 10:30 Morphine Sulfate (morphine) 2 mg Q4H PRN IV .PAIN 7-10; Start 09/28/18 at 10:30 Pantoprazole 80 mg/Sodium Chloride 100 ml @ 10 mls/hr Q10H IV ; Start 09/28/18 at 20:30 BLANCA WINTERS Sep 28, 2018 11:17
[2018-09-28] MEDS ORDERED: OLANZAPINE 10 MG VIAL IM PRN (11:30)
[2018-09-28 20:10] VITALS: BP 127/53; PULSE 56; RESP 18
[2018-09-28 21:00] VITALS: Ht 177.8 cm; Wt 93.5 kg
[2018-09-29] VITALS (17 sets, daily range): BP systolic 95–127; BP diastolic 37–78; PULSE 62–85; RESP 16–20
[2018-09-29] MEDS: PANTOPRAZOLE IV 80 MG in SOD CHLORIDE 0.9% 100 ML IV SCH ×2 (00:03→05:51)
[2018-09-29] MEDS: SOD CHLORIDE 0.9% 1,000 ML IV SCH (05:51)
--- NOTE | 2018-09-29 13:27 | PREAC ---
Date/Time of Note Date/Time of Note DATE: 09/29/18 TIME: 13: Anesthesia Eval and Record Evaluation Time Pre-Procedure Interview DATE: 09/29/18 TIME: 13: Age 83 Sex male NPO: 8 hrs Preoperative diagnosis HEMATEMESIS Planned procedure EGD Past Medical History Past Medical History: Includes Cardio: Dyslipidemia Neuro: CVA GI: Other (DUODENAL ULCER, CHRONIC PANCREATITIS) Surgery & Anesthesia Issues No known issue Meds Anticoagulation: No Beta Tracy within 24 hr: No Reason Beta Tracy not given: Pt. not on B-Tracy Reported Medications Escitalopram Oxalate* (Lexapro*) 5 Mg Tablet, 2.5 MG PO DAILY, #30 TAB 09/28/18 Ergocalciferol (Vitamin D2) (VITAMIN D2) 2,000 Unit Tablet, 2000 UNIT PO DAILY, TAB 09/28/18 Famotidine* (Famotidine*) 20 Mg Tablet, 20 MG PO DAILY, #30 TAB 09/28/18 Aspirin* (Aspirin* EC) 81 Mg Tablet.dr, 81 MG PO DAILY, TAB 05/10/18 Fenofibrate, Micronized (Fenofibrate) 54 Mg Tablet, 54 MG PO DAILY, TAB 04/18/18 Multivitamin* (Daily Value*) 1 Each Tablet, 1 TAB PO DAILY, TAB 08/22/17 Discontinued Reported Medications Potassium Chloride* (K-Dur*) 10 Meq Tab.prt.sr, 10 MEQ PO DAILY, TAB 04/18/18 Losartan Potassium* (Losartan Potassium*) 25 Mg Tablet, 25 MG PO DAILY, TAB 04/18/18 Furosemide* (Furosemide*) 20 Mg Tablet, 20 MG PO DAILY, #60 TAB 04/18/18 Escitalopram Oxalate* (Escitalopram Oxalate*) 5 Mg Tablet, 5 MG PO DAILY, #30 TAB 04/18/18 Cholecalciferol* (Vitamin D3*) 1,000 Unit Tablet, 2000 UNIT PO DAILY, TAB 08/22/17 Ferrous Sulfate* (Ferrous Sulfate*) 325 Mg Tabec, 325 MG PO BID, TAB 03/25/14 Current Medications Sodium Chloride 1,000 ml @ 100 mls/hr Q10H IV Last administered on 09/29/18at 05:51; Admin Dose 100 MLS/HR; Start 09/28/18 at 10:27 IV Flush (NS 3 ml) 3 ml PER PROTOCOL IV ; Start 09/28/18 at 10:30 Ondansetron HCl (Zofran Inj) 4 mg Q6H PRN IV NAUSEA/VOMITING; Start 09/28/18 at 10:30 Morphine Sulfate (morphine) 2 mg Q4H PRN IV .PAIN 7-10 Last administered on 09/29/18at 11:06; Admin Dose 2 MG; Start 09/28/18 at 10:30 Pantoprazole 80 mg/Sodium Chloride 100 ml @ 10 mls/hr Q10H IV Last administered on 09/29/18at 00:03; Admin Dose 10 MLS/HR; Start 09/28/18 at 20:30 Olanzapine (Zyprexa) 5 mg Q12 PRN IM agitation; Start 09/28/18 at 11:30 Meds reviewed: Yes Allergies Coded Allergies: lovastatin (Verified Allergy, Severe, RASH, 09/28/18) zolpidem (Unverified Allergy, Unknown, 09/28/18) Rash and itching Allergies Reviewed: Yes Labs/Studies Labs Reviewed: Reviewed by anesthesiologist Result Diagram: 09/29/1823 09/29/1823 Laboratory Tests 09/29/18 06:23 test: N/A Pre-procedure Exam Last vitals Vital Signs Date Temp Pulse Resp B/P (MAP) Pulse Ox O2 O2 Flow FiO2 Time Delivery Rate 09/29/18 Nasal 2 12:55 Cannula 09/29/18 98.0 70 18 100/45 98 12:54 (63) Airway: Adequate mouth opening, Adequate thyromental dist Mallampati: Mallampati II Teeth: Normal Lung: Normal Heart: Normal ASA Physical Status ASA physical status: 3 Emergency: None Planned Anesthetic General/MAC: MAC Planned Pain Management Parenteral pain med Pre-operative Attestations Prior to commencing anesthesia and surgery, the patient was re-evaluated, there was verification of: *The patient's identity *The results of appropriate recent lab work and preoperative vital signs *The above evaluation not changing prior to induction *Anesthetic plan, risk benefits, alternative and complications discussed with patient/family; questions answered; patient/family understands, accepts and wishes to proceed. Kam Pollock M.D. Sep 29, 2018 13:27
[2018-09-29] MEDS ORDERED: FENTAnyl 50 MCG/ML VIAL ONE (13:28)
[2018-09-29] MEDS ORDERED: LIDOCAINE 2% (SDV) 5 ML INJ ONE (13:28)
[2018-09-29] MEDS ORDERED: PROPOFOL 40 ML ONE (13:28)
[2018-09-29] MEDS ORDERED: PROPOFOL 200 MG INJ ONE (13:28)
--- NOTE | 2018-09-29 13:49 | PAC ---
Date/Time of Note Date/Time of Note DATE: 09/29/18 TIME: 13:49 Post-Anesthesia Notes Post-Anesthesia Note Last documented vital signs Vital Signs Date Temp Pulse Resp B/P (MAP) Pulse Ox O2 O2 Flow FiO2 Time Delivery Rate 09/29/18 Nasal 2 12:55 Cannula 09/29/18 98.0 70 18 100/45 98 12:54 (63) Activity: WNL Respiratory function: WNL Cardiovascular function: WNL Mental status: Baseline Pain reasonably controlled: Yes Hydration appropriate: Yes Nausea/Vomiting absent: Yes Kam Pollock M.D. Sep 29, 2018 13:49
--- NOTE | 2018-09-29 16:16 | PN ---
Date/Time of Note Date/Time of Note DATE: 09/29/18 TIME: 16:12 Assessment/Plan VTE [place]axis [place] [facility] [place]: 5 [place] [facility] [place] Yes Pharmacological prophylaxis: NA/contraindicated Pharm contraindication: bleeding Lines/Catheters IV Catheter Type (from [facility]): Peripheral IV Assessment/Plan Assessment/Plan 1. Acute Upper GI bleed - GI consultation appreciated and EGD showing gastritis and esophagitis. Will continue on PPI and await pathology 2. History of duodenal ulcer and AV malformation - EGD performed in March 2018 and did not have a follow up 3. History of CVA - Chronic right lower extremity deficit however this is mild and not severe - was on aspirin and will resume once H/H stabilizes 4. Mood disorder with possible dementia - Continue home meds when able - will avoid benzos 5. Chronic pancreatitis 6. Disposition - If no further episodes of hematemesis and H/H remains stable, will d/c tomorrow Result Diagram: 09/29/1823 09/29/18 0623 Results 24hrs Laboratory Tests Test 09/29/18 06:23 White Blood Count 8.5 # Red Blood Count 2.90 #L Hemoglobin 9.3 #L Hematocrit 27.9 #L Mean Corpuscular Volume 96.2 Mean Corpuscular Hemoglobin 32.1 Mean Corpuscular Hemoglobin Concent 33.3 Red Cell Distribution Width 14.7 H Platelet Count 129 #L Mean Platelet Volume 11.3 H Immature Granulocytes % 0.500 H Neutrophils % 75.6 Lymphocytes % 17.6 Monocytes % 6.1 Eosinophils % 0.0 Basophils % 0.2 Nucleated Red Blood Cells % 0.0 Immature Granulocytes # 0.040 H Neutrophils # 6.4 Lymphocytes # 1.5 Monocytes # 0.5 Eosinophils # 0.0 Basophils # 0.0 Nucleated Red Blood Cells # 0.0 Sodium Level 147 H Potassium Level 3.9 Chloride Level 115 H Carbon Dioxide Level 25 Anion Gap 7 Blood Urea Nitrogen 36 H Creatinine 1.03 Est Glomerular Filtrat Rate mL/min Glucose Level 100 Hemoglobin A1c 5.2 Calcium Level 8.1 L Magnesium Level 1.9 Total Bilirubin 0.4 Direct Bilirubin 0.00 Indirect Bilirubin 0.4 Aspartate Amino Transf (AST/SGOT) 18 Alanine Aminotransferase (ALT/SGPT) 26 Alkaline Phosphatase 47 Total Protein 6.0 #L Albumin 2.9 #L Globulin 3.10 Albumin/Globulin Ratio 0.93 Subjective 24 Hr Interval Summary Free Text/Dictation Patient angry this am since has not been fed and requesting to go home. Later agreed to undergo EGD. No acute GI bleeding appreciated since admission. Exam/Review of Systems Exam Vitals Vital Signs Date Temp Pulse Resp B/P (MAP) Pulse Ox O2 O2 Flow FiO2 Time Delivery Rate 09/29/18 98.6 78 19 123/58 95 Nasal 2.0 14:40 (79) Cannula Intake and Output 09/28/18 09/28/18 09/29/18 1515:00 23:00 07:00 IntakeIntake Total 0 ml BalanceBalance 0 ml Exam General: Patient is laying in bed and answers questions appropriately Neck: Supple, nontender, midline Respiratory: Clear to auscultation bilaterally. no wheezing or rhonchi Cardiovascular: regular rate and rhythm, no obvious murmurs Gastrointestinal: soft, mildly tender to palpation epigastric area, bowel sounds heard. Neurological: Moves all extremities spontaneously Skin: No new skin lesions Results Results 24hrs Laboratory Tests Test 09/29/18 06:23 White Blood Count 8.5 # Red Blood Count 2.90 #L Hemoglobin 9.3 #L Hematocrit 27.9 #L Mean Corpuscular Volume 96.2 Mean Corpuscular Hemoglobin 32.1 Mean Corpuscular Hemoglobin Concent 33.3 Red Cell Distribution Width 14.7 H Platelet Count 129 #L Mean Platelet Volume 11.3 H Immature Granulocytes % 0.500 H Neutrophils % 75.6 Lymphocytes % 17.6 Monocytes % 6.1 Eosinophils % 0.0 Basophils % 0.2 Nucleated Red Blood Cells % 0.0 Immature Granulocytes # 0.040 H Neutrophils # 6.4 Lymphocytes # 1.5 Monocytes # 0.5 Eosinophils # 0.0 Basophils # 0.0 Nucleated Red Blood Cells # 0.0 Sodium Level 147 H Potassium Level 3.9 Chloride Level 115 H Carbon Dioxide Level 25 Anion Gap 7 Blood Urea Nitrogen 36 H Creatinine 1.03 Est Glomerular Filtrat Rate mL/min Glucose Level 100 Hemoglobin A1c 5.2 Calcium Level 8.1 L Magnesium Level 1.9 Total Bilirubin 0.4 Direct Bilirubin 0.00 Indirect Bilirubin 0.4 Aspartate Amino Transf (AST/SGOT) 18 Alanine Aminotransferase (ALT/SGPT) 26 Alkaline Phosphatase 47 Total Protein 6.0 #L Albumin 2.9 #L Globulin 3.10 Albumin/Globulin Ratio 0.93 Medications Medication Current Medications Sodium Chloride 1,000 ml @ 100 mls/hr Q10H IV Last administered on 09/29/18at 05:51; Admin Dose 100 MLS/HR; Start 09/28/18 at 10:27 IV Flush (NS 3 ml) 3 ml PER PROTOCOL IV ; Start 09/28/18 at 10:30 Ondansetron HCl (Zofran Inj) 4 mg Q6H PRN IV NAUSEA/VOMITING; Start 09/28/18 at 10:30 Morphine Sulfate (morphine) 2 mg Q4H PRN IV .PAIN 7-10 Last administered on 09/29/18at 11:06; Admin Dose 2 MG; Start 09/28/18 at 10:30 Olanzapine (Zyprexa) 5 mg Q12 PRN IM agitation; Start 09/28/18 at 11:30 Pantoprazole (Protonix Tab) 40 mg BID@06,18 PO ; Start 09/29/18 at 18:00 EMMA ART MD Sep 29, 2018 16:16
[2018-09-29] MEDS: PANTOPRAZOLE (EC) 40 MG TAB PO SCH (18:20)
[2018-09-29] MEDS ORDERED: LORAZEPAM 2 MG INJ IV ONE (20:30)
[2018-09-29] MEDS ORDERED: HALOPERIDOL 5 MG INJ IM ONE (20:30)
[2018-09-29] MEDS: ALBUTEROL/IPRATROPIUM (NEB) 3 ML AMP HHN PRN (22:04)
[2018-09-30 01:40] VITALS: BP 116/55; PULSE 80; RESP 20
[2018-09-30 07:23] VITALS: BP 121/62; PULSE 82; RESP 19
[2018-09-30] MEDS: PANTOPRAZOLE (EC) 40 MG TAB PO SCH (09:18)
--- NOTE | 2018-09-30 11:07 | PN ---
Date/Time of Note Date/Time of Note DATE: 09/30/18 TIME: 11:04 Assessment/Plan VTE [place]axis [place] [facility] [place]: 6 [place] [facility] [place] Yes Pharmacological prophylaxis: NA/contraindicated Pharm contraindication: bleeding Lines/Catheters IV Catheter Type (from [facility]): Saline Lock Urinary Cath still in place: No Assessment/Plan Assessment/Plan 1. Acute Upper GI bleed- resolved - GI consultation appreciated and EGD showing gastritis and esophagitis. - Will continue on PPI and await pathology 2. History of duodenal ulcer and AV malformation - EGD performed in March 2018 and did not have a follow up 3. History of CVA - Chronic right lower extremity deficit however this is mild and not severe - resume aspirin 4. Mood disorder with possible dementia - Continue home meds when able - will avoid benzos 5. Chronic pancreatitis 6. Disposition - Medically stable for discharge home. Will need to follow up in 8 weeks for repeat EGD Result Diagram: 09/30/18 0436 09/30/18 0436 Results 24hrs Laboratory Tests Test 09/30/18 04:36 White Blood Count 6.9 Red Blood Count 2.62 L Hemoglobin 8.5 L Hematocrit 25.1 L Mean Corpuscular Volume 95.8 Mean Corpuscular Hemoglobin 32.4 Mean Corpuscular Hemoglobin Concent 33.9 Red Cell Distribution Width 14.4 Platelet Count 123 L Mean Platelet Volume 11.4 H Immature Granulocytes % 0.400 Neutrophils % 72.5 Lymphocytes % 19.1 Monocytes % 7.9 Eosinophils % 0.0 Basophils % 0.1 Nucleated Red Blood Cells % 0.0 Immature Granulocytes # 0.030 Neutrophils # 5.0 Lymphocytes # 1.3 Monocytes # 0.5 Eosinophils # 0.0 Basophils # 0.0 Nucleated Red Blood Cells # 0.0 Sodium Level 144 Potassium Level 3.8 Chloride Level 113 H Carbon Dioxide Level 25 Anion Gap 6 Blood Urea Nitrogen 25 #H Creatinine 1.06 Glucose Level 105 Calcium Level 8.4 Phosphorus Level 3.5 Magnesium Level 2.0 Albumin 3.0 L Subjective 24 Hr Interval Summary Free Text/Dictation Patient is complaining of some congestion and requesting neb tx. Denies any further episodes of hematemesis. Exam/Review of Systems Exam Vitals Vital Signs Date Temp Pulse Resp B/P (MAP) Pulse Ox O2 O2 Flow FiO2 Time Delivery Rate 09/30/18 Nasal 2.0 08:00 Cannula 09/30/18 97.2 82 19 121/62 96 07:23 (81) 09/30/18 32 02:48 Intake and Output 09/29/18 09/29/18 09/30/18 1515:00 23:00 07:00 IntakeIntake Total 0 ml 100 ml 200 ml BalanceBalance 0 ml 100 ml 200 ml Exam General: Patient is laying in bed and answers questions appropriately Neck: Supple Respiratory: Clear to auscultation bilaterally. no wheezing or rhonchi Cardiovascular: regular rate and rhythm, no obvious murmurs Gastrointestinal: soft,nontender to palpation, bowel sounds heard. Neurological: Moves all extremities spontaneously Skin: No new skin lesions Results Results 24hrs Laboratory Tests Test 09/30/18 04:36 White Blood Count 6.9 Red Blood Count 2.62 L Hemoglobin 8.5 L Hematocrit 25.1 L Mean Corpuscular Volume 95.8 Mean Corpuscular Hemoglobin 32.4 Mean Corpuscular Hemoglobin Concent 33.9 Red Cell Distribution Width 14.4 Platelet Count 123 L Mean Platelet Volume 11.4 H Immature Granulocytes % 0.400 Neutrophils % 72.5 Lymphocytes % 19.1 Monocytes % 7.9 Eosinophils % 0.0 Basophils % 0.1 Nucleated Red Blood Cells % 0.0 Immature Granulocytes # 0.030 Neutrophils # 5.0 Lymphocytes # 1.3 Monocytes # 0.5 Eosinophils # 0.0 Basophils # 0.0 Nucleated Red Blood Cells # 0.0 Sodium Level 144 Potassium Level 3.8 Chloride Level 113 H Carbon Dioxide Level 25 Anion Gap 6 Blood Urea Nitrogen 25 #H Creatinine 1.06 Glucose Level 105 Calcium Level 8.4 Phosphorus Level 3.5 Magnesium Level 2.0 Albumin 3.0 L Medications Medication Current Medications IV Flush (NS 3 ml) 3 ml PER PROTOCOL IV ; Start 09/28/18 at 10:30 Ondansetron HCl (Zofran Inj) 4 mg Q6H PRN IV NAUSEA/VOMITING; Start 09/28/18 at 10:30 Morphine Sulfate (morphine) 2 mg Q4H PRN IV .PAIN 7-10 Last administered on 09/29/18at 11:06; Admin Dose 2 MG; Start 09/28/18 at 10:30 Olanzapine (Zyprexa) 5 mg Q12 PRN IM agitation Last administered on 7/9/19at 01:25; Admin Dose 5 MG; Start 09/28/18 at 11:30 Pantoprazole (Protonix Tab) 40 mg BID@06,18 PO Last administered on 09/30/18 09:18; Admin Dose 40 MG; Start 09/29/18 at 18:00 Albuterol/ Ipratropium (Duoneb) 3 ml Q4H RESP THERAPY PRN HHN SHORTNESS OF BREATH Last administered on 09/29/18 22:04; Admin Dose 3 ML; Start 09/29/18 at 21:30 EMMA ART MD Sep 30, 2018 11:07
[2018-09-30] MEDS ORDERED: PANT40TA4 PO (11:15)
[2018-09-30] MEDS: ALBUTEROL/IPRATROPIUM (NEB) 3 ML AMP HHN PRN (11:22)
--- NOTE | 2018-09-30 11:30 | PDOCDIS ---
Discharge Instructions DIAGNOSIS Discharge Diagnosis 1. Acute Upper GI bleed secondary to moderate gastritis and distal esophagitis 2. History of duodenal ulcer and AV malformation 3. History of CVA 4. Mood disorder with possible dementia 5. Chronic pancreatitis CONDITION [id number] Patient Condition: [id number] Stable HOME CARE INSTRUCTIONS: [id number] Diet Instructions: [id number] FOLLOW UP/APPOINTMENTS Follow-up Plan 1. Follow up with your primary care physician in 1 week with repeat CBC to check your hemoglobin levels 2. Continue on Pantoprazole 40mg twice a day for 8 weeks then decrease to daily 3. Follow up with GI in 1 week to follow up on biopsy results. You will need a follow up EGD in [address] Arroyo's office to make an appointment 4. Continue all other medications as prescribed 5. If experiencing any concerning symptoms, please go to the closest emergency room REFERRALS Other Referrals Jaime Arroyo MD Specialty: Gastroenterology Comments Office Address [address] [address] Office EMMA ART MD Sep 30, 2018 11:29
--- NOTE | 2018-09-30 12:23 | PN ---
Date/Time of Note Date/Time of Note DATE: 09/30/18 TIME: 12:19 Assessment/Plan VTE Prophylaxis Risk score (from [facility])>0 risk: 6 SCD applied (from [facility]): Yes Pharmacological prophylaxis: other (scds) Lines/Catheters [facility] Type [facility]from [facility] Saline Lock Urinary Cath still in place: No Assessment/Plan Hospital Course Summary Assessment and Plan: Assessment: Hematemesis EGD 09/29/18 Moderate distal esophagitis. Small hiatal hernia. Moderate gastritis. Rule out H. pylori infection. Biopsies obtained Otherwise normal EGD Gastric biopsy: Chronic gastritis, mild and patchy, involving body mucosa. Negative for H. pylori. There is no evidence of malignancy History of duodenal ulcer History of gastric AVMs History of CVA Plan: PPI daily x4 weeks Patient clear for d/c from GI point of view Patient seen in collaboration with Dr. Arroyo Subjective: Course reviewed with nursing staff Patient interviewed and examined All labs, imaging and other results reviewed The patient appears comfortable, no overt night events No over signs of GI bleed. He denies n/v or abd pain currently PHYSICAL EXAMINATION: GENERAL: Alert & oriented x 3, in no acute distress SKIN: No lesions HEAD: Normocephalic, atraumatic, no tenderness. EYES: Pupils equal reactive to light and accommodation, no discharge. EARS/NOSE AND THROAT: Ears normal, nose normal. NECK: Supple, no masses CHEST: Inspection within normal limits. CARDIOVASCULAR: Heart: Regular rate and rhythm, no murmurs, gallops or rubs. RESPIRATORY: Lungs clear to auscultation GASTROINTESTINAL AND LIVER: Abdomen: Soft, non tenderness, non-distended, no hernias, no masses, no organomegaly, normoactive bowel sounds. Rectal: Deferred. EXTREMITIES: No cyanosis, clubbing or edema. Result Diagram: 09/30/18 0436 09/30/18 0436 Results 24hrs Laboratory Tests Test 09/30/18 04:36 White Blood Count 6.9 Red Blood Count 2.62 L Hemoglobin 8.5 L Hematocrit 25.1 L Mean Corpuscular Volume 95.8 Mean Corpuscular Hemoglobin 32.4 Mean Corpuscular Hemoglobin Concent 33.9 Red Cell Distribution Width 14.4 Platelet Count 123 L Mean Platelet Volume 11.4 H Immature Granulocytes % 0.400 Neutrophils % 72.5 Lymphocytes % 19.1 Monocytes % 7.9 Eosinophils % 0.0 Basophils % 0.1 Nucleated Red Blood Cells % 0.0 Immature Granulocytes # 0.030 Neutrophils # 5.0 Lymphocytes # 1.3 Monocytes # 0.5 Eosinophils # 0.0 Basophils # 0.0 Nucleated Red Blood Cells # 0.0 Sodium Level 144 Potassium Level 3.8 Chloride Level 113 H Carbon Dioxide Level 25 Anion Gap 6 Blood Urea Nitrogen 25 #H Creatinine 1.06 Glucose Level 105 Calcium Level 8.4 Phosphorus Level 3.5 Magnesium Level 2.0 Albumin 3.0 L Exam/Review of Systems Exam Vitals Vital Signs Date Temp Pulse Resp B/P (MAP) Pulse Ox O2 O2 Flow FiO2 Time Delivery Rate 09/30/18 95 2.0 11:22 09/30/18 82 18 Nasal 11:22 Cannula 09/30/18 97.2 121/62 07:23 (81) 09/30/18 32 02:48 Intake and Output 09/29/18 09/29/18 09/30/18 1515:00 23:00 07:00 IntakeIntake Total 0 ml 100 ml 200 ml BalanceBalance 0 ml 100 ml 200 ml Results Results 24hrs Laboratory Tests Test 09/30/18 04:36 White Blood Count 6.9 Red Blood Count 2.62 L Hemoglobin 8.5 L Hematocrit 25.1 L Mean Corpuscular Volume 95.8 Mean Corpuscular Hemoglobin 32.4 Mean Corpuscular Hemoglobin Concent 33.9 Red Cell Distribution Width 14.4 Platelet Count 123 L Mean Platelet Volume 11.4 H Immature Granulocytes % 0.400 Neutrophils % 72.5 Lymphocytes % 19.1 Monocytes % 7.9 Eosinophils % 0.0 Basophils % 0.1 Nucleated Red Blood Cells % 0.0 Immature Granulocytes # 0.030 Neutrophils # 5.0 Lymphocytes # 1.3 Monocytes # 0.5 Eosinophils # 0.0 Basophils # 0.0 Nucleated Red Blood Cells # 0.0 Sodium Level 144 Potassium Level 3.8 Chloride Level 113 H Carbon Dioxide Level 25 Anion Gap 6 Blood Urea Nitrogen 25 #H Creatinine 1.06 Glucose Level 105 Calcium Level 8.4 Phosphorus Level 3.5 Magnesium Level 2.0 Albumin 3.0 L Medications Medication Current Medications IV Flush (NS 3 ml) 3 ml PER PROTOCOL IV ; Start 09/28/18 at 10:30 Ondansetron HCl (Zofran Inj) 4 mg Q6H PRN IV NAUSEA/VOMITING; Start 09/28/18 at 10:30 Morphine Sulfate (morphine) 2 mg Q4H PRN IV .PAIN 7-10 Last administered on 09/29/18 11:06; Admin Dose 2 MG; Start 09/28/18 at 10:30 Olanzapine (Zyprexa) 5 mg Q12 PRN IM agitation Last administered on 09/30/18 01:25; Admin Dose 5 MG; Start 09/28/18 at 11:30 Pantoprazole (Protonix Tab) 40 mg BID@06,18 PO Last administered on 09/30/18 09:18; Admin Dose 40 MG; Start 09/29/18 at 18:00 Albuterol/ Ipratropium (Duoneb) 3 ml Q4H RESP THERAPY PRN HHN SHORTNESS OF BREATH Last administered on 09/30/18 11:22; Admin Dose 3 ML; Start 09/29/18 at 21:30 BLANCA WINTERS Sep 30, 2018 12:23
[2018-09-30 14:39] VITALS: BP 101/58; PULSE 78; RESP 20
--- NOTE | 2018-09-30 16:52 | DS ---
Date/Time of Note Date/Time of Note DATE: 09/30/18 TIME: 16:52 Discharge Summary Admission/Discharge Info Admit Date/Time Sep 28, 2018 at 10:24 Discharge Date/Time Sep 30, 2018 at 14:35 Discharge Diagnosis 1. Acute Upper GI bleed secondary to moderate gastritis and distal esophagitis 2. History of duodenal ulcer and AV malformation 3. History of CVA 4. Mood disorder with possible dementia 5. Chronic pancreatitis Patient Condition: Stable Consults GI- Dr. Arroyo Procedures EGD 09/29/18 Moderate distal esophagitis. Small hiatal hernia. Moderate gastritis. Rule out H. pylori infection. Biopsies obtained Otherwise normal EGD Gastric biopsy: Chronic gastritis, mild and patchy, involving body mucosa. Negative for H. pylori. Hx of Present Illness Patient is a male with a past medical history significant for duodenal ulcer as well as nonbleeding AV malformation the gastric region, CVA with right lower extremity mild deficit, dyslipidemia, chronic pancreatitis who presents to [facility] after an episode of coffee-ground emesis at his long-term facility. Currently patient is feeling well, no abdominal pain, no chest pain, no shortness of breath, no headache, no leg pain. Patient states that he feels well and does not know why that he threw up. Patient appears to have some cognitive deficiency however this may be long-term and states that he did not know that he was diagnosed with an ulcer during his previous admission. Hospital Course Patient was admitted and GI was consulted given hematemesis. Patient was started on PPI and EGD was performed with findings of esophagitis and gastritis. Biopsy was obtained with findings of chronic gastritis. No malignancy was noted. Patient was continued on PPI BID and no further hematemesis was noted. Patients vitals remained stable and was tolerating advanced diet. Patient was discharged back to skilled facility in good condition. Daughter was updated on patients condition. Home Meds Active Scripts Pantoprazole* (Pantoprazole*) 40 Mg Tablet., 40 MG PO BID@ for 60 Days, #120 TAB Prov:EMMA ART MD 09/30/18 Reported Medications Escitalopram Oxalate* (Lexapro*) 5 Mg Tablet, 2.5 MG PO DAILY, #30 TAB 09/28/18 Ergocalciferol (Vitamin D2) (VITAMIN D2) 2,000 Unit Tablet, 2000 UNIT PO DAILY, TAB 09/28/18 Aspirin* (Aspirin* EC) 81 Mg Tablet.dr, 81 MG PO DAILY, TAB 05/10/18 Fenofibrate, Micronized (Fenofibrate) 54 Mg Tablet, 54 MG PO DAILY, TAB 04/18/18 Multivitamin* (Daily Value*) 1 Each Tablet, 1 TAB PO DAILY, TAB 08/22/17 Discontinued Reported Medications Famotidine* (Famotidine*) 20 Mg Tablet, 20 MG PO DAILY, #30 TAB 09/28/18 Potassium Chloride* (K-Dur*) 10 Meq Tab.prt.sr, 10 MEQ PO DAILY, TAB 04/18/18 Losartan Potassium* (Losartan Potassium*) 25 Mg Tablet, 25 MG PO DAILY, TAB 04/18/18 Furosemide* (Furosemide*) 20 Mg Tablet, 20 MG PO DAILY, #60 TAB 04/18/18 Escitalopram Oxalate* (Escitalopram Oxalate*) 5 Mg Tablet, 5 MG PO DAILY, #30 TAB 04/18/18 Cholecalciferol* (Vitamin D3*) 1,000 Unit Tablet, 2000 UNIT PO DAILY, TAB 08/22/17 Ferrous Sulfate* (Ferrous Sulfate*) 325 Mg Tabec, 325 MG PO BID, TAB 03/25/14 Follow-up Plan 1. Follow up with your primary care physician in 1 week with repeat CBC to check your hemoglobin levels 2. Continue on Pantoprazole 40mg twice a day for 8 weeks then decrease to daily 3. Follow up with GI in 1 week to follow up on biopsy results. You will need a follow up EGD in [address] Arroyo's office to make an appointment 4. Continue all other medications as prescribed 5. If experiencing any concerning symptoms, please go to the closest emergency room Primary Care Provider Care Physician No Primary Time spent on discharge: > 30 minutes Pending Labs Laboratory Tests Test 09/30/18 04:36 White Blood Count 6.9 10^3/ul (4.8-10.8) Red Blood Count 2.62 10^6/ul (4.70-6.10) Hemoglobin 8.5 g/dl (14.0-18.0) Hematocrit 25.1 % (42.0-52.0) Mean Corpuscular Volume 95.8 fl (82.0-101.0) Mean Corpuscular Hemoglobin 32.4 pg (29.0-33.0) Mean Corpuscular Hemoglobin Concent 33.9 g/dl (32.0-37.0) Red Cell Distribution Width 14.4 % (11.5-14.5) Platelet Count 123 10^3/UL (140-415) Mean Platelet Volume 11.4 fl (7.4-10.4) Immature Granulocytes % 0.400 % (0.001-0.429) Neutrophils % 72.5 % (39.0-77.0) Lymphocytes % 19.1 % (15.0-51.0) Monocytes % 7.9 % (0.0-11.0) Eosinophils % 0.0 % (0.0-7.0) Basophils % 0.1 % (0.0-2.0) Nucleated Red Blood Cells % 0.0 /100WBC (0.0-0.0) Immature Granulocytes # 0.030 10^3/ul (0.0-0.031) Neutrophils # 5.0 10^3/ul (1.6-7.5) Lymphocytes # 1.3 10^3/ul (0.8-2.9) Monocytes # 0.5 10^3/ul (0.3-0.9) Eosinophils # 0.0 10^3/ul (0.0-0.5) Basophils # 0.0 10^3/ul (0.0-0.1) Nucleated Red Blood Cells # 0.0 10^3/ul (0.0-0.0) Sodium Level 144 mmol/L (135-144) Potassium Level 3.8 mmol/L (3.5-5.1) Chloride Level 113 mmol/L (97-110) Carbon Dioxide Level 25 mmol/L (21-31) Anion Gap 6 (5-13) Blood Urea Nitrogen 25 mg/dl (7-20) Creatinine 1.06 mg/dl (0.61-1.24) Glucose Level 105 mg/dl (70-220) Calcium Level 8.4 mg/dl (8.4-10.2) Phosphorus Level 3.5 mg/dl (2.5-4.9) Magnesium Level 2.0 mg/dl (1.7-2.5) Albumin 3.0 g/dl (3.3-4.9) EMMA ART MD Sep 30, 2018 16:52
== END 2018-09-30 14:35 | DRG 378 ==
LOC: E/R 08:58 → TEL 10:24 → MS1 09-29 18:36
PROVIDERS: ADMIT Internal Medicine; ATTEND Internal Medicine
PROC: 0DD68ZX Extraction of Stomach, Via Natural or Artificial Opening Endoscopic, Diagnostic (ICD-10-PCS; principal; 2018-09-29 13:00)
DX: K92.0 Hematemesis (principal); D62 Acute posthemorrhagic anemia; K86.1 Other chronic pancreatitis; K20.9 Esophagitis, unspecified; K29.70 Gastritis, unspecified, without bleeding; K44.9 Diaphragmatic hernia without obstruction or gangrene; Z86.73 Personal history of transient ischemic attack (TIA), and cerebral infarction without residual deficits; F39 Unspecified mood [affective] disorder; F03.90 Unspecified dementia, unspecified severity, without behavioral disturbance, psychotic disturbance, mood disturbance, and anxiety
CPT/HCPCS: 36415; 71045; 80053; 80069; 83036; 83735; 84484; 85025; 85610; 85730; 86850; 86870; 86900; 86901; 87081; 88305; 88312; 93005; 94640; 94664; 96374; 96375; C9113; J1630; J2060; J2270; J2405; J3010; J7030

== ENCOUNTER 2018-10-08 07:32 | Inpatient (IN) | payer OTHER ==
[~2018-10-08] VITALS: Ht 177.8 cm; Wt 90.0 kg
[~2018-10-08 07:32] MED LIST changes: -CHOL100062 PO; +ERGO2000 PO; +ESCI5TAB PO; -ESCI5TAB10 PO; -FER325 PO; -FURO20TA3 PO; -LOSA25TA12 PO; +PANT40TA4 PO; -POTA10TA37 PO
[2018-10-08] MEDS ORDERED: CEFEPIME 1GM/50 ML (PMX) 50 ML IVPB STA (07:48)
[2018-10-08] MEDS ORDERED: VANCOMYCIN 1 GM (PMX) 250 ML IVPB STA (07:48)
[2018-10-08] MEDS ORDERED: ALBUTEROL 0.083% (NEB) 2.5 MG/3 ML AMP HHN STA (07:48)
--- NOTE | 2018-10-08 07:51 | ERD ---
ER Documentation Chief Complaint Chief Complaint generalized weakness and nausea today,no neuro deficits HPI This 83-year-old male complains of generalized weakness for the past 2 to 3 days of decreased appetite. He said a cough for 2 days that is very loose but he says is nonproductive. Says vomiting yesterday twice was nonbilious and nonbloody. No chest pain, no shortness of breath, no diarrhea or abdominal pain. Denies any dysuria or hematuria or fever Patient was recently admitted here on September 30 for an upper GI bleed. His discharge hemoglobin was 8.5. EGD showed moderate gastritis with distal moderate esophagitis ROS All systems reviewed and are negative except as per history of present illness. Medications Home Meds Active Scripts Pantoprazole* (Pantoprazole*) 40 Mg Tablet., 40 MG PO BID@ for 60 Days, #120 TAB Prov:EMMA ART MD 09/30/18 Reported Medications Escitalopram Oxalate* (Lexapro*) 5 Mg Tablet, 2.5 MG PO DAILY, #30 TAB 09/28/18 Ergocalciferol (Vitamin D2) (VITAMIN D2) 2,000 Unit Tablet, 2000 UNIT PO DAILY, TAB 09/28/18 Aspirin* (Aspirin* EC) 81 Mg Tablet., 81 MG PO DAILY, TAB 05/10/18 Fenofibrate, Micronized (Fenofibrate) 54 Mg Tablet, 54 MG PO DAILY, TAB 04/18/18 Multivitamin* (Daily Value*) 1 Each Tablet, 1 TAB PO DAILY, TAB 08/22/17 Allergies Allergies: Coded Allergies: lorazepam (Verified Allergy, Severe, 09/30/18) becomes aggressive and restless lovastatin (Verified Allergy, Severe, RASH, 09/28/18) zolpidem (Unverified Allergy, Unknown, 09/28/18) Rash and itching PMhx/Soc History of Surgery: No Anesthesia Reaction: No Hx Neurological Disorder: Yes (DEMENTIA) Hx Respiratory Disorders: No Hx Cardiac Disorders: Yes (HTN) Hx Psychiatric Problems: No Hx Miscellaneous Medical Probl: Yes (ANEMIA, GERD) Hx Alcohol Use: No Hx Substance Use: No Hx Tobacco Use: No FmHx Family History: No coronary disease Physical Exam Vitals Vital Signs Date Temp Pulse Resp B/P (MAP) Pulse Ox O2 O2 Flow FiO2 Time Delivery Rate 10/08/18 Nasal 2.0 08:18 Cannula 10/08/18 Nasal 2 08:08 Cannula 10/08/18 93 20 96 Nasal 2.0 07:58 Cannula 10/08/18 2.0 07:58 10/08/18 98.3 89 28 111/48 94 07:43 (69) Physical Exam Const: Well-developed, well-nourished Head: Atraumatic, normocephalic Eyes: Normal Conjunctiva, PERRLA, EOMI, normal sclera, no nystagmus ENT: Normal External Ears, Nose and Mouth, moist mucus membranes. Neck: Full range of motion. No meningismus, no lymphadenopathy. Resp: Loose cough with diffuse rhonchi bilaterally Cardio: Regular rate and rhythm, no murmurs, S1 S2 present Abd: Soft, non tender x 4, non distended. Normal bowel sounds, no guarding or rebound, no pulsitile abdominal masses or bruits Skin: No petechiae or rashes, no ecchymosis , no maculopapular rash Back: No midline or flank tenderness Ext: No cyanosis, or edema, FROM x 4, normal inspection, neurovascularly intact x 4 Neur: Awake and alert, STR 5/5 x 4, sensation intact x 4, no focal findings, cerebellum intact Psych: Normal Mood and Affect Result Diagram: 10/08/18 0810/08/18 08 Results 24 hrs Laboratory Tests Test 10/08/18 08:02 10/08/18 08:11 White Blood Count 13.8 10^3/ul Red Blood Count 2.09 10^6/ul Hemoglobin 6.7 g/dl Hematocrit 21.3 % Mean Corpuscular Volume 101.9 fl Mean Corpuscular Hemoglobin 32.1 pg Mean Corpuscular Hemoglobin Concent 31.5 g/dl Red Cell Distribution Width 15.9 % Platelet Count 177 10^3/UL Mean Platelet Volume 11.3 fl Immature Granulocytes % 0.800 % Neutrophils % % Segmented Neutrophils % (Manual) 85 % Lymphocytes % % Lymphocytes % (Manual) 11 % Monocytes % % Monocytes % (Manual) 3 % Eosinophils % % Eosinophils % (Manual) 1 % Basophils % % Nucleated Red Blood Cells % 0.2 /100WBC Immature Granulocytes # 0.110 10^3/ul Neutrophils # 10^3/ul Lymphocytes (Manual) 1.5 10^3/ul Lymphocytes # 10^3/ul Monocytes # 10^3/ul Monocytes # (Manual) 0.4 10^3/ul Eosinophils # 10^3/ul Basophils # 10^3/ul Nucleated Red Blood Cells # 10^3/ul Pathologist Review (Hematology) YES White Cell Morphology Comment @See below Platelet Estimate NORMAL Polychromasia 1+ Hypochromasia 1+ Anisocytosis 1+ Microcytosis 1+ Red Cell Morphology Comment @See below Prothrombin Time 14.8 Sec Prothrombin Time Ratio 1.2 INR International Normalized Ratio 1.15 Activated Partial Thromboplast Time 32.6 Sec Sodium Level 144 mmol/L Potassium Level 4.1 mmol/L Chloride Level 112 mmol/L Carbon Dioxide Level 26 mmol/L Anion Gap 6 Blood Urea Nitrogen 49 mg/dl Creatinine 1.07 mg/dl Est Glomerular Filtrat Rate mL/min mL/min Glucose Level 143 mg/dl Calcium Level 8.5 mg/dl Total Bilirubin 0.4 mg/dl Direct Bilirubin 0.00 mg/dl Indirect Bilirubin 0.4 mg/dl Aspartate Amino Transf (AST/SGOT) 21 IU/L Alanine Aminotransferase (ALT/SGPT) 20 IU/L Alkaline Phosphatase 46 IU/L Troponin I < 0.012 ng/ml B-Type Natriuretic Peptide 121 PG/ML Total Protein 6.2 g/dl Albumin 3.1 g/dl Globulin 3.10 g/dl Albumin/Globulin Ratio 1.00 POC Venous Lactate 1.6 mmol/L Current Medications Medications Dose Sig/Eve Start Time Status Last (Trade) Ordered Route PRN Stop Time Admin Dose Reason Admin Albuterol 5 mg ONCE STAT 10/08/18 DC 10/08/18 (Proventil HHN 07:48 07:56 0.083% (Neb)) 10/08/18 07:50 Cefepime HCl 50 ml @ ONCE STAT 10/08/18 DC 10/08/18 100 mls/hr IVPB 07:48 08:37 10/08/18 08:17 Vancomycin 250 ml @ ONCE STAT 10/08/18 DC 10/08/18 HCl 125 mls/hr IVPB 07:48 09:57 10/08/18 09:47 Pantoprazole 100 ml @ ONCE STAT 10/08/18 DC 10/08/18 80 mg/Sodium 400 mls/hr IVPB 08:23 09:21 Chloride 7/17/19 08:37 Pantoprazole 100 ml @ ONCE STAT 10/08/18 10/08/18 80 mg/Sodium 10 mls/hr IV 08:23 09:57 Chloride 10/08/18 18:22 Procedures/MDM [place] [id number] Radiology Main Line: [phone] DIAGNOSTIC IMAGING REPORT Patient: SABINA SCHREIBER : 1935 Age: 83 Sex: M MR #: [id number] DOS: 10/08/18 0748 Ordering MD: ANNE LAI DO Location: E/R Room/Bed: PROCEDURE: XR Chest. CLINICAL INDICATION: Shortness of breath. TECHNIQUE: Chest, 1 view. COMPARISON: 09/28/2018 FINDINGS: The cardiomediastinal silhouette demonstrates enlargement of the cardiac silhouette. There are aortic calcifications. Shallow lung volumes with no significant change in bibasilar opacities. No pleural effusion is seen. No definite pneumothorax is seen. No acute osseous abnormality. Interval removal of enteric tube. IMPRESSION: Shallow lung volumes with no significant change in bibasilar opacities, representing atelectasis versus pneumonia. Aortic atherosclerosis. RPTAT: AAEE Physician Simon Date Time Electronically viewed and signed by Abi Vazquez Physician on 10/08/2018 08:46 PH/ CC: ANNE LAI DO [id number] Patient has probable pneumonia. We will give him some antibiotics and blood cultures. Patient is not septic. His hemoglobin is dropped from 8.5-6.7 and a matter of 8 days. He is likely having continuous slow GI bleed. He is going to be transfused 2 units of packed red blood cells be admitted to the hospital for probable another EGD Departure Diagnosis: Primary Impression: Anemia Anemia type: unspecified type Qualified Codes: D64.9 - Anemia, unspecified Additional Impression: Pneumonia Pneumonia type: due to unspecified organism Laterality: left Lung location: lower lobe of lung Qualified Codes: J18.1 - Lobar pneumonia, unspecified organism Condition: ANNE Moss DO Oct 08, 2018 07:51
[2018-10-08] MEDS ORDERED: PANTOPRAZOLE IV 80 MG in SOD CHLORIDE 0.9% 100 ML IVPB STA (08:23)
[2018-10-08] MEDS ORDERED: PANTOPRAZOLE IV 80 MG in SOD CHLORIDE 0.9% 100 ML IV STA (08:23)
[2018-10-08] MEDS ORDERED: SOD CHLORIDE 0.9% 1,000 ML IV SCH (10:47)
[2018-10-08] MEDS ORDERED: LORA10TA3 PO (10:56)
[2018-10-08] MEDS ORDERED: FAMO20TA18 PO (10:58)
[2018-10-08] MEDS ORDERED: GUAI-95 PO (10:59)
[2018-10-08] MEDS ORDERED: ONDANSETRON 4 MG INJ IV PRN (11:00)
[2018-10-08] MEDS ORDERED: ACETAMINOPHEN 325 MG TAB PO PRN ×2 (11:00→13:00)
[2018-10-08] MEDS ORDERED: DOCUSATE SODIUM 100 MG CAP PO PRN (13:00)
[2018-10-08] MEDS ORDERED: NACL 0.9% 3 ML SYG IV SCH (13:00)
[2018-10-08] MEDS ORDERED: GUAIFENESIN/DM 5ML CUP PO PRN (13:00)
[2018-10-08] MEDS ORDERED: LORATADINE 10 MG TAB PO PRN (13:00)
[2018-10-08] MEDS ORDERED: HYDROCODONE/APAP (5/325) TAB PO PRN (13:00)
[2018-10-08 13:01] VITALS: BP 132/60; PULSE 75; RESP 22
--- NOTE | 2018-10-08 13:20 | HP ---
Date/Time of Note Date/Time of Note DATE: 10/08/18 TIME: 13:12 Assessment/Plan VTE Prophylaxis SCD applied (from Nsg): Yes Pharmacological prophylaxis: NA/contraindicated Pharm contraindication: anticoag not tolerated Lines/Catheters IV [facility]from [facility] Saline Lock Assessment/Plan Hospital Course SUBJECTIVE: Patient denies any discomfort. He complains of nonproductive cough for a few weeks with no fevers. OBJECTIVE: Vital signs-see below PHYSICAL EXAM: Constitutional: Adequately built,not in acute distress. HEENT: Head atraumatic and normocephalic. Eyes: Extraocular muscles intact. Anicteric sclerae. Pupils equal bilaterally, reactive to light. NECK: Supple without lymph node. CHEST: Clear and good breath sounds equally. No wheezing. No rhonchi. HEART: S1, S2. Regular rate and rhythm. ABDOMEN: Soft/non tender with no rebound tenderness. Bowel sounds were present. EXTREMITIES: No cyanosis, clubbing or edema. NEUROLOGIC: Alert and oriented x3. No focal deficit. No sensory deficit. PSYCHOSOCIAL: No signs of depression. INTEGUMENTARY: No open wounds. ASSESSMENT AND PLAN:83-year-old male with a past medical history of depression, CVA, vitamin D deficiency, gastritis/esophagitis, was transferred from senior care with generalized weakness x3 to 4 days with decreased appetite, found to have severe anemia.. Severe symptomatic anemia -Obtain iron panel, ferritin, vitamin B12/folate level. -From previous records, patient did have iron deficiency, as such will proceed with IV Ferrlecit. -Patient with positive antibodies, 2 units PRBC pending -Hematology consultation Acute bronchitis -We will treat this with Levaquin and cough medications Gastritis/esophagitis -Patient did not admit to any UGI B/L GIB symptoms currently. However, in light of recent admission for GI bleed work-up, I will request gastroenterology review of case. Patient had EGD 2 weeks ago. -PPi Depressive disorders -Resume home medications History CVA -Hold off to aspirin in light of severe anemia and questionable GI bleed Vitamin D deficiency -Potassium supplementation Obesity with a BMI 30.2 -Lifestyle changes advised DVT prophylaxis: SCDs PUD prophylaxis: PPI Plan of care updated with patient. Patient also request for a DNR/DNI status. He is alert and oriented and is capable of making his own decisions. Patient wishes not to get intubated, placed on a mechanical ventilator, having artificial mother of feeding, defibrillation, CPR or any other means of resuscitation. After discussion with patient, we will place DNR/DNI status. I have also attempted calling patient's daughter on the phone number and medical records with no answers. Rest of the management depend on hospital course. Approximately 60-minute was spent on this history and physical. Patient is seen in collaboration with . Result Diagram: 10/08/18 0802 10/08/18 0802 Results 24hrs Laboratory Tests Test 10/08/18 08:02 10/08/18 08:11 White Blood Count 13.8 #H Red Blood Count 2.09 #L Hemoglobin 6.7 #*L Hematocrit 21.3 L Mean Corpuscular Volume 101.9 H Mean Corpuscular Hemoglobin 32.1 Mean Corpuscular Hemoglobin Concent 31.5 L Red Cell Distribution Width 15.9 H Platelet Count 177 # Mean Platelet Volume 11.3 H Immature Granulocytes % 0.800 H Neutrophils % Segmented Neutrophils % (Manual) 85 H Lymphocytes % Lymphocytes % (Manual) 11 L Monocytes % Monocytes % (Manual) 3 Eosinophils % Eosinophils % (Manual) 1 Basophils % Nucleated Red Blood Cells % 0.2 H Immature Granulocytes # 0.110 H Neutrophils # Lymphocytes (Manual) 1.5 Lymphocytes # Monocytes # Monocytes # (Manual) 0.4 Eosinophils # Basophils # Nucleated Red Blood Cells # Pathologist Review (Hematology) YES White Cell Morphology Comment @See below Platelet Estimate NORMAL Polychromasia 1+ Hypochromasia 1+ Anisocytosis 1+ Microcytosis 1+ Red Cell Morphology Comment @See below Prothrombin Time 14.8 Prothrombin Time Ratio 1.2 INR International Normalized Ratio 1.15 Activated Partial Thromboplast Time 32.6 Sodium Level 144 Potassium Level 4.1 Chloride Level 112 H Carbon Dioxide Level 26 Anion Gap 6 Blood Urea Nitrogen 49 H Creatinine 1.07 Est Glomerular Filtrat Rate mL/min Glucose Level 143 Calcium Level 8.5 Total Bilirubin 0.4 Direct Bilirubin 0.00 Indirect Bilirubin 0.4 Aspartate Amino Transf (AST/SGOT) 21 Alanine Aminotransferase (ALT/SGPT) 20 Alkaline Phosphatase 46 Troponin I < 0.012 B-Type Natriuretic Peptide 121 Total Protein 6.2 Albumin 3.1 L Globulin 3.10 Albumin/Globulin Ratio 1.00 POC Venous Lactate 1.6 HPI/ROS Admit Date/Time Admit Date/Time Oct 08, 2018 at 10:48 Hx of Present Illness 83-year-old male with a past medical history of depression, CVA, vitamin D deficiency, gastritis/esophagitis, was transferred from senior care with generalized weakness x3 to 4 days with decreased appetite. Patient also did admit to cough which has been going on for a few weeks. Patient did not have any nausea, vomiting, abdominal pain, fevers, chills, diarrhea, constipation. Patient also denied chest pain, palpitation, shortness of breath, loss of consciousness, dizziness, numbness, tingling or other constitutional symptoms. Apparently, patient was recently discharged from [facility] about 2 weeks ago for evaluation of coffee-ground emesis reported from the senior care for which he underwent EGD evaluation with no significant GI ble eding source identified other than chronic gastritis and esophagitis.At that time patient presented with a hemoglobin 11.7 which then dropped to 8.5 on day of discharge. Patient continued to take aspirin at the nursing facility. On arrival, patient was noted with a hemoglobin 6.7, hematocrit 21.3, white count 13,800, BUN 49. Chest x-ray with no evidence of pneumonia. Vital signs stable. No fevers. ROS A 12 point review of system was assessed and is negative other than what is mentioned in the HPI. PMH/Family/Social Past Medical History See HPI Medications Current Medications Pantoprazole 80 mg/Sodium Chloride 100 ml @ 10 mls/hr ONCE STAT IV Last administered on 10/08/18at 09:57; Admin Dose 10 MLS/HR; Start 10/08/18 at 08:23; Stop 10/08/18 at 18:22 Sodium Chloride 1,000 ml @ 80 mls/hr [id number] IV ; Start 10/08/18 at 10:47; Stop 10/08/18 at 23:16 Ondansetron HCl (Zofran Inj) 4 mg ER BRIDGE PRN IV NAUSEA/VOMITING; Start 10/08/18 at 11:00; Stop 10/09/18 at 10:59 Acetaminophen (Tylenol Tab) 650 mg ER BRIDGE PRN PO .MILD PAIN 1-3 OR TEMP; Start 10/08/18 at 11:00; Stop 10/09/18 at 10:59 Escitalopram Oxalate (Lexapro) 2.5 mg DAILY PO ; Start 10/09/18 at 09:00 Multivitamins Therapeutic (Theragran) 1 tab DAILY PO ; Start 10/09/18 at 09:00 Cholecalciferol (Vitamin D) 2,000 unit DAILY PO ; Start 10/09/18 at 09:00 Guaifenesin/ Dextromethorphan (Robitussin Dm Liquid Cup) 10 ml Q6H PRN PO COUGH; Start 10/08/18 at 13:00 Ferric Sodium Gluconate Complex 125 mg/Sodium Chloride 100 ml @ 100 mls/hr DAILY@1300 IVPB ; Start 10/08/18 at 14:00; Stop 10/10/18 at 13:59 IV Flush (NS 3 ml) 3 ml PER PROTOCOL IV ; Start 10/08/18 at 13:00 Acetaminophen (Tylenol Tab) 650 mg Q6H PRN PO .PAIN 1-3 OR TEMP; Start 10/08/18 at 13:00 Acetaminophen/ Hydrocodone Bitart ([place] (5/325)) 1 tab Q6H PRN PO .MOD PAIN 4- 6; Start 10/08/18 at 13:00 Docusate Sodium (Colace) 100 mg Q12H PRN PO .CONSTIPATION; Start 10/08/18 at 13:00 Pantoprazole (Protonix Iv) 40 mg BID@06,18 IV ; Start 10/08/18 at 18:00 Albuterol/ Ipratropium (Duoneb) 3 ml Q4H RESP THERAPY HHN ; Start 10/08/18 at 13:00 Coded Allergies: lorazepam (Unverified Adverse Reaction, Unknown, 10/08/18) lovastatin (Unverified Adverse Reaction, Unknown, 10/08/18) zolpidem (Unverified Adverse Reaction, Unknown, 10/08/18) Past Surgical History See HPI Past Surgical Hx: cholecystectomy Social History Former smoker. Smoking Status: Never smoker Exam/Review of Systems Vital Signs Vitals Vital Signs Date Temp Pulse Resp B/P (MAP) Pulse Ox O2 O2 Flow FiO2 Time Delivery Rate 10/08/18 98.0 75 22 132/60 96 Nasal 2.0 13:01 (84) Cannula SHAQ WALLS NP Oct 08, 2018 13:20
--- NOTE | 2018-10-08 13:49 | CONS ---
Assessment/Plan Assessment/Plan Hospital Course (Demo Recall) Summary Assessment and Plan: Assessment: Severe symptomatic macrocytic anemia Recent EGD 09/29/18 Moderate distal esophagitis. Small hiatal hernia. Moderate gastritis. Rule out H. pylori infection. Biopsies obtained. Otherwise normal EGD Gastric biopsy: Chronic gastritis, mild and patchy, involving body mucosa. Negative for H. pylori. Acute bronchitis- started on Levaquin Depressive disorders History CVA Vitamin D deficiency Plan: Patient declines colonoscopy at this time. For CT abdomen pelvis with contrast- to assess liver given macrocytic anemia and to r/o colon mass vs inflammation vs other-if abnormality in the colon is noted patient is open to re-discussing possibility of colonoscopy Ok to start clear liquid diet Folate and vitamin B12 have been ordered and currently pending Patient seen in collaboration with Dr. Arroyo CC: THOMAS ARRYOO MD ; Consultation Date/Type/Reason Admit Date/Time Oct 08, 2018 at 10:48 Date of Consultation: Oct 08, 2018 Type of Consult GI Reason for Consultation Severe anemia Date/Time of Note DATE: 10/08/18 TIME: 13:33 Hx of Present Illness Is an 83-year-old male with past medical history of CVA, vitamin D deficiency, depression who was recently admitted to [facility] for hematemesis he underwent EGD showing gastritis esophagitis as well as a small hiatal hernia biopsies negative for H. pylori. He represented to [facility] emergency department from his group home with complaints of cough, generalized weakness for the past 3 to 4 days and a decreased appetite. Work-up in the ED including hematology showing severe macrocytic anemia with a hemoglobin of 6.1 MCV 101.9. Patient denies any overt signs of GI bleed i.e. me connie, hematochezia, or hematemesis. Discussed possibility of colonoscopy patient this time denies colonoscopy but is agreeable to move forward with a CT scan abdomen pelvis to assess both the liver given macrocytic anemia as well as colon to rule out inflammation, lesion or mass. If abnormality is noted patient states he would be more open to the idea of colonoscopy. Review of Systems: A 12 system, review was conducted and is negative except as noted in the HPI or here. Past Medical History Home Meds Reported Medications Guaifenesin/Dextromethorphan (Diabetic Tussin DM*) 118 Ml Liquid, 10 ML PO Q6H PRN for COUGH, BOTTLE 10/08/18 Famotidine* (Famotidine*) 20 Mg Tablet, 20 MG PO DAILY, #30 TAB 10/08/18 Loratadine* (Loratadine*) 10 Mg Tablet, 10 MG PO DAILY PRN for NEEDED, #30 TAB 10/08/18 Escitalopram Oxalate* (Lexapro*) 5 Mg Tablet, 2.5 MG PO DAILY, #30 TAB 09/28/18 Ergocalciferol (Vitamin D2) (VITAMIN D2) 2,000 Unit Tablet, 2000 UNIT PO DAILY, TAB 09/28/18 Aspirin* (Aspirin* EC) 81 Mg Tablet.dr, 81 MG PO DAILY, TAB 05/10/18 Fenofibrate, Micronized (Fenofibrate) 54 Mg Tablet, 54 MG PO DAILY, TAB 04/18/18 Multivitamin* (Daily Value*) 1 Each Tablet, 1 TAB PO DAILY, TAB 08/22/17 Discontinued Scripts Pantoprazole* (Pantoprazole*) 40 Mg Tablet.dr, 40 MG PO BID@18 for 60 Days, # 120 TAB Prov:EMMA ART MD 09/30/18 Medications Current Medications Pantoprazole 80 mg/Sodium Chloride 100 ml @ 10 mls/hr ONCE STAT IV Last administered on 10/08/18at 09:57; Admin Dose 10 MLS/HR; Start 10/08/18 at 08:23; Stop 10/08/18 at 18:22 Sodium Chloride 1,000 ml @ 80 mls/hr [id number] IV ; Start 10/08/18 at 10:47; Stop 10/08/18 at 23:16 Ondansetron HCl (Zofran Inj) 4 mg ER BRIDGE PRN IV NAUSEA/VOMITING; Start 10/08/18 at 11:00; Stop 10/09/18 at 10:59 Acetaminophen (Tylenol Tab) 650 mg ER BRIDGE PRN PO .MILD PAIN 1-3 OR TEMP; Start 10/08/18 at 11:00; Stop 10/09/18 at 10:59 Escitalopram Oxalate (Lexapro) 2.5 mg DAILY PO ; Start 10/09/18 at 09:00 Multivitamins Therapeutic (Theragran) 1 tab DAILY PO ; Start 10/09/18 at 09:00 Cholecalciferol (Vitamin D) 2,000 unit DAILY PO ; Start 10/09/18 at 09:00 Guaifenesin/ Dextromethorphan (Robitussin Dm Liquid Cup) 10 ml Q6H PRN PO COUGH; Start 10/08/18 at 13:00 Ferric Sodium Gluconate Complex 125 mg/Sodium Chloride 100 ml @ 100 mls/hr DAILY@1300 IVPB ; Start 10/08/18 at 14:00; Stop 10/10/18 at 13:59 IV Flush (NS 3 ml) 3 ml PER PROTOCOL IV ; Start 10/08/18 at 13:00 Acetaminophen (Tylenol Tab) 650 mg Q6H PRN PO .PAIN 1-3 OR TEMP; Start 10/08/18 at 13:00 Acetaminophen/ Hydrocodone Bitart ([place] (5/325)) 1 tab Q6H PRN PO .MOD PAIN 4- 6; Start 10/08/18 at 13:00 Docusate Sodium (Colace) 100 mg Q12H PRN PO .CONSTIPATION; Start 10/08/18 at 13:00 Pantoprazole (Protonix Iv) 40 mg BID@06,18 IV ; Start 10/08/18 at 18:00 Albuterol/ Ipratropium (Duoneb) 3 ml Q4H RESP THERAPY HHN ; Start 10/08/18 at 13:00 Allergies: Coded Allergies: lorazepam (Unverified Adverse Reaction, Unknown, 10/08/18) lovastatin (Unverified Adverse Reaction, Unknown, 10/08/18) zolpidem (Unverified Adverse Reaction, Unknown, 10/08/18) Past Surgical History Past Surgical Hx: cholecystectomy Social History Smoking Status: Never smoker Exam/Review of Systems Exam Vitals Vital Signs Date Temp Pulse Resp B/P (MAP) Pulse Ox O2 O2 Flow FiO2 Time Delivery Rate 10/08/18 98.0 75 22 132/60 96 Nasal 2.0 13:01 (84) Cannula Exam PHYSICAL EXAMINATION: GENERAL: Alert & oriented x 3, pale SKIN: No lesions HEAD: Normocephalic, atraumatic, no tenderness. EYES: Pupils equal reactive to light and accommodation, no discharge. EARS/NOSE AND THROAT: Ears normal, nose normal. NECK: Supple, no masses. CHEST: Inspection within normal limits. CARDIOVASCULAR: Heart: Regular rate and rhythm RESPIRATORY: Lungs clear to auscultation GASTROINTESTINAL AND LIVER: Abdomen: Soft, non tenderness, non-distended, no hernias, no masses, no organomegaly, no ascites, no guarding, no rebound tenderness, normoactive bowel sounds. Rectal: Deferred. EXTREMITIES: No cyanosis, clubbing or edema. Results Result Diagram: 10/08/18 0802 10/08/18 0802 Results 24hrs Laboratory Tests Test 10/08/18 08:02 10/08/18 08:11 White Blood Count 13.8 #H Red Blood Count 2.09 #L Hemoglobin 6.7 #*L Hematocrit 21.3 L Mean Corpuscular Volume 101.9 H Mean Corpuscular Hemoglobin 32.1 Mean Corpuscular Hemoglobin Concent 31.5 L Red Cell Distribution Width 15.9 H Platelet Count 177 # Mean Platelet Volume 11.3 H Immature Granulocytes % 0.800 H Neutrophils % Segmented Neutrophils % (Manual) 85 H Lymphocytes % Lymphocytes % (Manual) 11 L Monocytes % Monocytes % (Manual) 3 Eosinophils % Eosinophils % (Manual) 1 Basophils % Nucleated Red Blood Cells % 0.2 H Immature Granulocytes # 0.110 H Neutrophils # Lymphocytes (Manual) 1.5 Lymphocytes # Monocytes # Monocytes # (Manual) 0.4 Eosinophils # Basophils # Nucleated Red Blood Cells # Pathologist Review (Hematology) YES White Cell Morphology Comment @See below Platelet Estimate NORMAL Polychromasia 1+ Hypochromasia 1+ Anisocytosis 1+ Microcytosis 1+ Red Cell Morphology Comment @See below Prothrombin Time 14.8 Prothrombin Time Ratio 1.2 INR International Normalized Ratio 1.15 Activated Partial Thromboplast Time 32.6 Sodium Level 144 Potassium Level 4.1 Chloride Level 112 H Carbon Dioxide Level 26 Anion Gap 6 Blood Urea Nitrogen 49 H Creatinine 1.07 Est Glomerular Filtrat Rate mL/min Glucose Level 143 Calcium Level 8.5 Total Bilirubin 0.4 Direct Bilirubin 0.00 Indirect Bilirubin 0.4 Aspartate Amino Transf (AST/SGOT) 21 Alanine Aminotransferase (ALT/SGPT) 20 Alkaline Phosphatase 46 Troponin I < 0.012 B-Type Natriuretic Peptide 121 Total Protein 6.2 Albumin 3.1 L Globulin 3.10 Albumin/Globulin Ratio 1.00 POC Venous Lactate 1.6 Medications Medication Current Medications Pantoprazole 80 mg/Sodium Chloride 100 ml @ 10 mls/hr ONCE STAT IV Last administered on 10/08/18at 09:57; Admin Dose 10 MLS/HR; Start 10/08/18 at 08:23; Stop 10/08/18 at 18:22 Sodium Chloride 1,000 ml @ 80 mls/hr [id number] IV ; Start 10/08/18 at 10:47; Stop 10/08/18 at 23:16 Ondansetron HCl (Zofran Inj) 4 mg ER BRIDGE PRN IV NAUSEA/VOMITING; Start 10/08/18 at 11:00; Stop 10/09/18 at 10:59 Acetaminophen (Tylenol Tab) 650 mg ER BRIDGE PRN PO .MILD PAIN 1-3 OR TEMP; Start 10/08/18 at 11:00; Stop 10/09/18 at 10:59 Escitalopram Oxalate (Lexapro) 2.5 mg DAILY PO ; Start 10/09/18 at 09:00 Multivitamins Therapeutic (Theragran) 1 tab DAILY PO ; Start 10/09/18 at 09:00 Cholecalciferol (Vitamin D) 2,000 unit DAILY PO ; Start 10/09/18 at 09:00 Guaifenesin/ Dextromethorphan (Robitussin Dm Liquid Cup) 10 ml Q6H PRN PO COUGH; Start 10/08/18 at 13:00 Ferric Sodium Gluconate Complex 125 mg/Sodium Chloride 100 ml @ 100 mls/hr DAILY@1300 IVPB ; Start 10/08/18 at 14:00; Stop 10/10/18 at 13:59 IV Flush (NS 3 ml) 3 ml PER PROTOCOL IV ; Start 10/08/18 at 13:00 Acetaminophen (Tylenol Tab) 650 mg Q6H PRN PO .PAIN 1-3 OR TEMP; Start 10/08/18 at 13:00 Acetaminophen/ Hydrocodone Bitart ([place] (5/325)) 1 tab Q6H PRN PO .MOD PAIN 4- 6; Start 10/08/18 at 13:00 Docusate Sodium (Colace) 100 mg Q12H PRN PO .CONSTIPATION; Start 10/08/18 at 13:00 Pantoprazole (Protonix Iv) 40 mg BID@06,18 IV ; Start 10/08/18 at 18:00 Albuterol/ Ipratropium (Duoneb) 3 ml Q4H RESP THERAPY HHN ; Start 10/08/18 at 13:00 BLANCA WINTERS Oct 08, 2018 13:46
[2018-10-08] MEDS ORDERED: SOD FERRIC GLUC COMPLX 125 MG in SOD CHLORIDE 0.9% 100 ML IVPB SCH (14:00)
[2018-10-08] MEDS ORDERED: BARIUM SULF 2% 450 ML BTL (BERRY SMOOTHIE) PO ONE (14:00)
[2018-10-08] MEDS: ALBUTEROL/IPRATROPIUM (NEB) 3 ML AMP HHN SCH ×3 (14:49→20:00)
[2018-10-08 15:11] VITALS: Ht 177.8 cm; Wt 90.0 kg
[2018-10-08 15:28] VITALS: BP 108/53; PULSE 79; RESP 22
--- NOTE | 2018-10-08 15:32 | CONS ---
Assessment/Plan Assessment/Plan Hospital Course (Demo Recall) 83 yo with profound macrocytic anemia with normal B12, folate. normal iron studies -stop IV iron as his levels are normal -check haptoglobin, antonieta, SPEP, light chains, reticulocyte count -it would be helpful to have prior labs for comparison -transfuse to keep Hgb >7 Consultation Date/Type/Reason Admit Date/Time Oct 08, 2018 at 10:48 Date/Time of Note DATE: 10/08/18 TIME: 15:31 Hx of Present Illness 83-year-old male with past medical history of CVA, vitamin D deficiency, depression recently admitted to [facility] for hematemesis. He is s/p EGD showing gastritis and esophagitis. He is back from [place] with cough and weakness, labs show macrocytic anemia with a hemoglobin of 6.1 MCV 101.9. Patient denies any overt signs of GI bleed i.e. melena, hematochezia, or hematemesis. He has been seen by GI but refuses colonoscopy per the notes. He believes he has had colonoscopy in last few years but unable to tell me where. He had CT AP last admission with no overt abnormalities noted. He has normal b12 and iron and folate levels He reports " I have been anemic my whole life" and that he has never needed a transfusion of note his nurse tells me that the blood bank detected multiple antibodies in his blood ETOH:none Constitutional: no complaints, improved Eyes: no complaints ENT: no complaints Gastrointestinal: no complaints Genitourinary: no complaints Musculoskeletal: no complaints Skin: no complaints Neurologic: no complaints Past Medical History Home Meds Reported Medications Guaifenesin/Dextromethorphan (Diabetic Tussin DM*) 118 Ml Liquid, 10 ML PO Q6H PRN for COUGH, BOTTLE 10/08/18 Famotidine* (Famotidine*) 20 Mg Tablet, 20 MG PO DAILY, #30 TAB 10/08/18 Loratadine* (Loratadine*) 10 Mg Tablet, 10 MG PO DAILY PRN for NEEDED, #30 TAB 10/08/18 Escitalopram Oxalate* (Lexapro*) 5 Mg Tablet, 2.5 MG PO DAILY, #30 TAB 09/28/18 Ergocalciferol (Vitamin D2) (VITAMIN D2) 2,000 Unit Tablet, 2000 UNIT PO DAILY, TAB 09/28/18 Aspirin* (Aspirin* EC) 81 Mg Tablet.dr, 81 MG PO DAILY, TAB 05/10/18 Fenofibrate, Micronized (Fenofibrate) 54 Mg Tablet, 54 MG PO DAILY, TAB 04/18/18 Multivitamin* (Daily Value*) 1 Each Tablet, 1 TAB PO DAILY, TAB 08/22/17 Discontinued Scripts Pantoprazole* (Pantoprazole*) 40 Mg Tablet.dr, 40 MG PO BID@06,18 for 60 Days, #120 TAB Prov:EMMA ART MD 09/30/18 Medications Current Medications Pantoprazole 80 mg/Sodium Chloride 100 ml @ 10 mls/hr ONCE STAT IV Last administered on 10/08/18at 09:57; Admin Dose 10 MLS/HR; Start 10/08/18 at 08:23; Stop 10/08/18 at 18:22 Sodium Chloride 1,000 ml @ 80 mls/hr [id number] IV ; Start 10/08/18 at 10:47; Stop 10/08/18 at 23:16 Escitalopram Oxalate (Lexapro) 2.5 mg DAILY PO ; Start 10/09/18 at 09:00 Multivitamins Therapeutic (Theragran) 1 tab DAILY PO ; Start 10/09/18 at 09:00 Cholecalciferol (Vitamin D) 2,000 unit DAILY PO ; Start 10/09/18 at 09:00 Guaifenesin/ Dextromethorphan (Robitussin Dm Liquid Cup) 10 ml Q6H PRN PO COUGH; Start 10/08/18 at 13:00 Ferric Sodium Gluconate Complex 125 mg/Sodium Chloride 100 ml @ 100 mls/hr DAILY@1300 IVPB Last administered on 10/08/18at 14:39; Admin Dose 100 MLS/HR; Start 10/08/18 at 14:00; Stop 10/10/18 at 13:59 IV Flush (NS 3 ml) 3 ml PER PROTOCOL IV ; Start 10/08/18 at 13:00 Acetaminophen (Tylenol Tab) 650 mg Q6H PRN PO .PAIN 1-3 OR TEMP; Start 10/08/18 at 13:00 Acetaminophen/ Hydrocodone Bitart ([place] (5/325)) 1 tab Q6H PRN PO .MOD PAIN 4- 6; Start 10/08/18 at 13:00 Docusate Sodium (Colace) 100 mg Q12H PRN PO .CONSTIPATION; Start 10/08/18 at 13:00 Pantoprazole (Protonix Iv) 40 mg BID@06,18 IV ; Start 10/08/18 at 18:00 Albuterol/ Ipratropium (Duoneb) 3 ml Q4H RESP THERAPY HHN Last administered on 10/08/18at 14:49; Admin Dose 3 ML; Start 10/08/18 at 13:00 Allergies: Coded Allergies: lorazepam (Unverified Adverse Reaction, Unknown, 10/08/18) lovastatin (Unverified Adverse Reaction, Unknown, 10/08/18) zolpidem (Unverified Adverse Reaction, Unknown, 10/08/18) Past Surgical History Past Surgical Hx: cholecystectomy Social History Smoking Status: Never smoker Exam/Review of Systems Exam Vitals Vital Signs Date Temp Pulse Resp B/P (MAP) Pulse Ox O2 O2 Flow FiO2 Time Delivery Rate 10/08/18 98.7 79 22 108/53 96 Nasal 3.0 15:28 (71) Cannula Constitutional: alert, oriented, well developed Psych: no complaints, nl mood/affect Head: normocephalic, atraumatic Eyes: nl conjunctiva, EOMI, nl lids, nl sclera, PERRL Extremities: normal pulses 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, nl mental status, nl speech, nl strength Results Result Diagram: 10/08/18 0802 10/08/18 0802 Results 24hrs Laboratory Tests Test 10/08/18 08:02 10/08/18 08:04 10/08/18 08:11 White Blood Count 13.8 #H Red Blood Count 2.09 #L Hemoglobin 6.7 #*L Hematocrit 21.3 L Mean Corpuscular Volume 101.9 H Mean Corpuscular Hemoglobin 32.1 Mean Corpuscular Hemoglobin Concent 31.5 L Red Cell Distribution Width 15.9 H Platelet Count 177 # Mean Platelet Volume 11.3 H Immature Granulocytes % 0.800 H Neutrophils % Segmented Neutrophils % (Manual) 85 H Lymphocytes % Lymphocytes % (Manual) 11 L Monocytes % Monocytes % (Manual) 3 Eosinophils % Eosinophils % (Manual) 1 Basophils % Nucleated Red Blood Cells % 0.2 H Immature Granulocytes # 0.110 H Neutrophils # Lymphocytes (Manual) 1.5 Lymphocytes # Monocytes # Monocytes # (Manual) 0.4 Eosinophils # Basophils # Nucleated Red Blood Cells # Pathologist Review (Hematology) YES White Cell Morphology Comment @See below Platelet Estimate NORMAL Polychromasia 1+ Hypochromasia 1+ Anisocytosis 1+ Microcytosis 1+ Red Cell Morphology Comment @See below Prothrombin Time 14.8 Prothrombin Time Ratio 1.2 INR International Normalized Ratio 1.15 Activated Partial Thromboplast Time 32.6 Sodium Level 144 Potassium Level 4.1 Chloride Level 112 H Carbon Dioxide Level 26 Anion Gap 6 Blood Urea Nitrogen 49 H Creatinine 1.07 Est Glomerular Filtrat Rate mL/min Glucose Level 143 Calcium Level 8.5 Total Bilirubin 0.4 Direct Bilirubin 0.00 Indirect Bilirubin 0.4 Aspartate Amino Transf (AST/SGOT) 21 Alanine Aminotransferase (ALT/SGPT) 20 Alkaline Phosphatase 46 Troponin I < 0.012 B-Type Natriuretic Peptide 121 Total Protein 6.2 Albumin 3.1 L Globulin 3.10 Albumin/Globulin Ratio 1.00 Iron Level 74 Total Iron Binding Capacity 275 Percent Iron Saturation 27 Ferritin 132.0 Vitamin B12 Level 714 Folate 12.5 POC Venous Lactate 1.6 Medications Medication Current Medications Pantoprazole 80 mg/Sodium Chloride 100 ml @ 10 mls/hr ONCE STAT IV Last administered on 10/08/18at 09:57; Admin Dose 10 MLS/HR; Start 10/08/18 at 08:23; Stop 10/08/18 at 18:22 Sodium Chloride 1,000 ml @ 80 mls/hr [id number] IV ; Start 10/08/18 at 10:47; Stop 10/08/18 at 23:16 Escitalopram Oxalate (Lexapro) 2.5 mg DAILY PO ; Start 10/09/18 at 09:00 Multivitamins Therapeutic (Theragran) 1 tab DAILY PO ; Start 10/09/18 at 09:00 Cholecalciferol (Vitamin D) 2,000 unit DAILY PO ; Start 10/09/18 at 09:00 Guaifenesin/ Dextromethorphan (Robitussin Dm Liquid Cup) 10 ml Q6H PRN PO COUGH; Start 10/08/18 at 13:00 Ferric Sodium Gluconate Complex 125 mg/Sodium Chloride 100 ml @ 100 mls/hr D AILY@1300 IVPB Last administered on 10/08/18at 14:39; Admin Dose 100 MLS/HR; Start 10/08/18 at 14:00; Stop 10/10/18 at 13:59 IV Flush (NS 3 ml) 3 ml PER PROTOCOL IV ; Start 10/08/18 at 13:00 Acetaminophen (Tylenol Tab) 650 mg Q6H PRN PO .PAIN 1-3 OR TEMP; Start 10/08/18 at 13:00 Acetaminophen/ Hydrocodone Bitart ([place] (5/325)) 1 tab Q6H PRN PO .MOD PAIN 4- 6; Start 10/08/18 at 13:00 Docusate Sodium (Colace) 100 mg Q12H PRN PO .CONSTIPATION; Start 10/08/18 at 13:00 Pantoprazole (Protonix Iv) 40 mg BID@06,18 IV ; Start 10/08/18 at 18:00 Albuterol/ Ipratropium (Duoneb) 3 ml Q4H RESP THERAPY HHN Last administered on 10/08/18at 14:49; Admin Dose 3 ML; Start 10/08/18 at 13:00 MARILIN YEAGER Oct 08, 2018 15:32
[2018-10-08] MEDS: PANTOPRAZOLE 40 MG INJ IV SCH (17:30)
[2018-10-08] MEDS ORDERED: IOHEXOL 300MG/ML 150 ML BTL ONE (18:30)
[2018-10-08] MEDS ORDERED: SOD CHLORIDE 0.9% 100 ML ONE (18:30)
[2018-10-08 20:00] VITALS: BP 109/55; PULSE 77; RESP 18
[2018-10-09] VITALS (7 sets, daily range): BP systolic 101–121; BP diastolic 48–57; PULSE 79–98; RESP 1–20
[2018-10-09] MEDS: ALBUTEROL/IPRATROPIUM (NEB) 3 ML AMP HHN SCH ×6 (00:29→20:18)
[2018-10-09] MEDS: PANTOPRAZOLE 40 MG INJ IV SCH ×2 (04:56→17:52)
[2018-10-09] MEDS ORDERED: DIPHENHYDRAMINE 50 MG INJ IV ONE (05:00)
[2018-10-09] MEDS ORDERED: morphine 2 MG INJ IV PRN (05:00)
[2018-10-09] MEDS ORDERED: HALOPERIDOL 5 MG INJ IM ONE (05:30)
[2018-10-09] MEDS: ESCITALOPRAM 10 MG TAB PO SCH (08:39)
[2018-10-09] MEDS: CHOLECALCIFEROL 2,000 UNIT CAP PO SCH (08:40)
[2018-10-09] MEDS: MULTIVITAMINS THERAPEUTIC TAB PO SCH (08:40)
--- NOTE | 2018-10-09 10:41 | PN ---
Date/Time of Note Date/Time of Note DATE: 10/09/18 TIME: 10:37 Assessment/Plan VTE Prophylaxis Risk score (from Nsg)>0 risk: 6 SCD applied (from Nsg): Yes Pharmacological prophylaxis: NA/contraindicated Pharm contraindication: anticoag not tolerated Lines/Catheters [facility] Saline Lock Urinary Cath still in place: No Assessment/Plan Hospital Course SUBJECTIVE: Patient upset this morning as he was not able to sleep at all last night. He complained of frequent limb movements. This has been going on for a while and is not getting enough sleep because of that. OBJECTIVE: Vital signs-see below PHYSICAL EXAM: Constitutional: Adequately built,not in acute distress. HEENT: Head atraumatic and normocephalic. Eyes: Extraocular muscles intact. Anicteric sclerae. Pupils equal bilaterally, reactive to light. NECK: Supple without lymph node. CHEST: Clear and good breath sounds equally. No wheezing. No rhonchi. HEART: S1, S2. Regular rate and rhythm. ABDOMEN: Soft/non tender with no rebound tenderness. Bowel sounds were present. EXTREMITIES: No cyanosis, clubbing or edema. NEUROLOGIC: Alert and oriented x3. No focal deficit. No sensory deficit. PSYCHOSOCIAL: No signs of depression. INTEGUMENTARY: No open wounds. ASSESSMENT AND PLAN:83-year-old male with a past medical history of depression, CVA, vitamin D deficiency, gastritis/esophagitis, was transferred from senior care with generalized weakness x3 to 4 days with decreased appetite, found to have severe anemia.. Severe symptomatic anemia -Appreciate hematology follow-up. No indication for iron per heme evaluation. -Status post transfusion. Repeat hemoglobin pending. No overt bleeding. Acute bronchitis -Symptoms improved. Continue with Levaquin and cough medications. Gastritis/esophagitis -s/p EGD 2 wks ago. Patient did not admit to any UGI B/L GIB symptoms currently. -PPi -f/u GI recs Depressive disorders -Start trazodone -Continue Lexapro Possible restless leg syndrome -ropinirole trial. History CVA -Hold off to aspirin in light of severe anemia and questionable GI bleed Vitamin D deficiency -cont. supplementation Obesity with a BMI 30.2 -Lifestyle changes advised DVT prophylaxis: SCDs PUD prophylaxis: PPI Continue supportive care. If hemoglobin remains stable and no overt bleeding, likely DC planning back to senior care in 24 hours. Rest of the management depend on hospital course. Patient is seen in collaboration with . Result Diagram: 10/08/18 0802 10/08/18 0802 Results 24hrs Laboratory Tests Test 10/08/18 17:00 10/08/18 17:01 10/09/18 07:22 Lactate Dehydrogenase 500 Thyroid Stimulating 0.128 L Hormone (TSH) Haptoglobin Pending Total Protein (PEP) 5.8 L Albumin (PEP) Pending Iyhof-7-Wfqxcygzs Pending Znexv-7-Fkujgncen Pending Beta Globulins Pending Gamma Globulins Pending Protein Pending Electrophoresis Interpret Lab Scanned Report BLOOD TRANSFUSION Exam/Review of Systems Exam Vitals Vital Signs Date Temp Pulse Resp B/P (MAP) Pulse Ox O2 O2 Flow FiO2 Time Delivery Rate 10/09/18 98.0 88 20 101/51 96 Room Air 08:03 (68) 10/09/18 2.0 08:00 10/08/18 21 20:00 Intake and Output 10/08/18 10/08/18 10/09/18 1515:00 23:00 07:00 IntakeIntake Total 650 ml BalanceBalance 650 ml Results Results 24hrs Laboratory Tests Test 10/08/18 17:00 10/08/18 17:01 10/09/18 07:22 Lactate Dehydrogenase 500 Thyroid Stimulating 0.128 L Hormone (TSH) Haptoglobin Pending Total Protein (PEP) 5.8 L Albumin (PEP) Pending Jdnvt-4-Fzuqdbmla Pending Hgnbj-8-Fmpqlycfk Pending Beta Globulins Pending Gamma Globulins Pending Protein Pending Electrophoresis Interpret Lab Scanned Report BLOOD TRANSFUSION Medications Medication Current Medications Escitalopram Oxalate (Lexapro) 2.5 mg DAILY PO Last administered on 10/09/18at 08:39; Admin Dose 2.5 MG; Start 10/09/18 at 09:00 Multivitamins Therapeutic (Theragran) 1 tab DAILY PO Last administered on 10/09/18at 08:40; Admin Dose 1 TAB; Start 10/09/18 at 09:00 Cholecalciferol (Vitamin D) 2,000 unit DAILY PO Last administered on 10/09/18at 08:40; Admin Dose 2,000 UNIT; Start 10/09/18 at 09:00 Guaifenesin/ Dextromethorphan (Robitussin Dm Liquid Cup) 10 ml Q6H PRN PO COUGH; Start 10/08/18 at 13:00 IV Flush (NS 3 ml) 3 ml PER PROTOCOL IV ; Start 10/08/18 at 13:00 Acetaminophen (Tylenol Tab) 650 mg Q6H PRN PO .PAIN 1-3 OR TEMP; Start 10/08/18 at 13:00 Acetaminophen/ Hydrocodone Bitart ([place] (5/325)) 1 tab Q6H PRN PO .MOD PAIN 4- 6; Start 10/08/18 at 13:00 Docusate Sodium (Colace) 100 mg Q12H PRN PO .CONSTIPATION; Start 10/08/18 at 13:00 Pantoprazole (Protonix Iv) 40 mg BID@,18 IV Last administered on 10/09/18at 04:56; Admin Dose 40 MG; Start 10/08/18 at 18:00 Albuterol/ Ipratropium (Duoneb) 3 ml Q4H RESP THERAPY HHN Last administered on 10/08/18at 20:00; Admin Dose 3 ML; Start 10/08/18 at 13:00 Morphine Sulfate (morphine) 2 mg PRN PRN IV PAIN; Start 10/09/18 at 05:00 SHAQ WALLS NP Oct 09, 2018 10:41
--- NOTE | 2018-10-09 13:59 | CONS ---
Assessment/Plan Assessment/Plan Hospital Course (Demo Recall) 83 yo with profound macrocytic anemia with normal B12, folate. 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 in PRCA, levels of indirect bilirubin, haptoglobin, and lactate dehydrogenase are normal, and the direct antiglobulin (Haile) test is negative. AWAIT JANAK await parvovirus abs and haptoglobin he does have many antibodies which made finding a match for him difficult -it would be helpful to have prior labs for comparison -transfuse to keep Hgb >7 -would recommend bone marrow biopsy Consultation Date/Type/Reason Admit Date/Time Oct 08, 2018 at 10:48 Initial Consult Date 10/08/18 Date/Time of Note DATE: 10/09/18 TIME: 13:56 24 HR Interval Summary Free Text/Dictation s/p 1 u prbc, hgb at 6.7 SPEP WNL LDH not significantly elevated Exam/Review of Systems Exam Vitals Vital Signs Date Temp Pulse Resp B/P (MAP) Pulse Ox O2 O2 Flow FiO2 Time Delivery Rate 10/09/18 98.0 83 20 121/57 96 Room Air 12:09 (78) 10/09/18 2.0 08:00 10/08/18 21 20:00 Intake and Output 10/08/18 10/08/18 10/09/18 1515:00 23:00 07:00 IntakeIntake Total 650 ml BalanceBalance 650 ml Constitutional: alert, oriented, well developed Psych: no complaints, nl mood/affect Head: normocephalic, atraumatic Respiratory: clear to auscultation, normal air movement Gastrointestinal: soft, nl liver, spleen, non-tender Results Result Diagram: 10/08/18 0802 10/08/18 0802 Results 24hrs Laboratory Tests Test 10/08/18 17:00 10/08/18 17:01 10/09/18 07:22 Lactate Dehydrogenase 500 Thyroid Stimulating 0.128 L Hormone (TSH) Haptoglobin Pending Total Protein (PEP) 5.8 L Albumin (PEP) Pending Uislk-1-Reunhrusi Pending Sdijd-3-Mjkmkcwfn Pending Beta Globulins Pending Gamma Globulins Pending Protein Pending Electrophoresis Interpret Lab Scanned Report BLOOD TRANSFUSION Medications Medication Current Medications Escitalopram Oxalate (Lexapro) 2.5 mg DAILY PO Last administered on 10/09/18at 08:39; Admin Dose 2.5 MG; Start 10/09/18 at 09:00 Multivitamins Therapeutic (Theragran) 1 tab DAILY PO Last administered on 10/09/18at 08:40; Admin Dose 1 TAB; Start 10/09/18 at 09:00 Cholecalciferol (Vitamin D) 2,000 unit DAILY PO Last administered on 10/09/18at 08:40; Admin Dose 2,000 UNIT; Start 10/09/18 at 09:00 Guaifenesin/ Dextromethorphan (Robitussin Dm Liquid Cup) 10 ml Q6H PRN PO COUGH; Start 10/08/18 at 13:00 IV Flush (NS 3 ml) 3 ml PER PROTOCOL IV ; Start 10/08/18 at 13:00 Acetaminophen (Tylenol Tab) 650 mg Q6H PRN PO .PAIN 1-3 OR TEMP; Start 10/08/18 at 13:00 Acetaminophen/ Hydrocodone Bitart ([place] (5/325)) 1 tab Q6H PRN PO .MOD PAIN 4- 6; Start 10/08/18 at 13:00 Docusate Sodium (Colace) 100 mg Q12H PRN PO .CONSTIPATION; Start 10/08/18 at 13:00 Pantoprazole (Protonix Iv) 40 mg BID@06,18 IV Last administered on 10/09/18at 04:56; Admin Dose 40 MG; Start 10/08/18 at 18:00 Albuterol/ Ipratropium (Duoneb) 3 ml Q4H RESP THERAPY HHN Last administered on 10/08/18at 20:00; Admin Dose 3 ML; Start 10/08/18 at 13:00 Morphine Sulfate (morphine) 2 mg PRN PRN IV PAIN; Start 10/09/18 at 05:00 Ropinirole HCl (Requip) 0.25 mg HS PO ; Start 10/09/18 at 21:00 Trazodone HCl (Desyrel) 50 mg HS PO ; Start 10/09/18 at 21:00 MARILIN YEAGER Oct 09, 2018 13:59
--- NOTE | 2018-10-09 14:23 | PN ---
Date/Time of Note Date/Time of Note DATE: 10/09/18 TIME: 14:14 Assessment/Plan VTE Prophylaxis Risk score (from Ns)>0 risk: 6 SCD applied (from Ns): Yes Pharmacological prophylaxis: NA/contraindicated Pharm contraindication: other (anemia ) Lines/Catheters IV [facility] Saline Lock Urinary Cath still in place: No Assessment/Plan Hospital Course Summary Assessment and Plan: Assessment: Severe symptomatic macrocytic anemia Recent EGD 09/29/18 Moderate distal esophagitis. Small hiatal hernia. Moderate gastritis. Rule out H. pylori infection. Biopsies obtained. Otherwise normal EGD Gastric biopsy: Chronic gastritis, mild and patchy, involving body mucosa. Negative for H. pylori. Acute bronchitis- started on Levaquin Depressive disorders History CVA Vitamin D deficiency Left adrenal myelolipoma Chronic pancreatitis Plan: No significant GI findings on CT scan- Colonoscopy declined- Anemia - macrocytic Folate and vitamin B12 -WNL Work-up per Hemo/Onc GI will sign off at this time but will be available upon reconsult as needed Patient seen in collaboration with Dr. Arroyo Subjective: Course reviewed with nursing staff Patient interviewed and examined All labs, imaging and other results reviewed The patient resting in bed, no over night events No overt signs of GI bleed. No c/o nausea or vomiting Labs not available to review Exam PHYSICAL EXAMINATION: GENERAL: Alert & oriented x 3, pale SKIN: No lesions HEAD: Normocephalic, atraumatic, no tenderness. EYES: Pupils equal reactive to light and accommodation, no discharge. EARS/NOSE AND THROAT: Ears normal, nose normal. NECK: Supple, no masses. CHEST: Inspection within normal limits. CARDIOVASCULAR: Heart: Regular rate and rhythm RESPIRATORY: Lungs clear to auscultation GASTROINTESTINAL AND LIVER: Abdomen: Soft, non tenderness, non-distended, no hernias, no masses, no organomegaly, no ascites, no guarding, no rebound tender ness, normoactive bowel sounds. Rectal: Deferred. EXTREMITIES: No cyanosis, clubbing or edema. Result Diagram: 10/08/18 0802 10/08/18 0802 Results 24hrs Laboratory Tests Test 10/08/18 17:00 10/08/18 17:01 10/09/18 07:22 Lactate Dehydrogenase 500 Thyroid Stimulating 0.128 L Hormone (TSH) Haptoglobin Pending Total Protein (PEP) 5.8 L Albumin (PEP) Pending Hbdbt-4-Bzxgsrnmj Pending Flktp-1-Dbyolmxlc Pending Beta Globulins Pending Gamma Globulins Pending Protein Pending Electrophoresis Interpret Lab Scanned Report BLOOD TRANSFUSION Exam/Review of Systems Exam Vitals Vital Signs Date Temp Pulse Resp B/P (MAP) Pulse Ox O2 O2 Flow FiO2 Time Delivery Rate 10/09/18 98.0 83 20 121/57 96 Room Air 12:09 (78) 10/09/18 2.0 08:00 10/08/18 21 20:00 Intake and Output 10/08/18 10/08/18 10/09/18 1515:00 23:00 07:00 IntakeIntake Total 650 ml BalanceBalance 650 ml Results Results 24hrs Laboratory Tests Test 10/08/18 17:00 10/08/18 17:01 10/09/18 07:22 Lactate Dehydrogenase 500 Thyroid Stimulating 0.128 L Hormone (TSH) Haptoglobin Pending Total Protein (PEP) 5.8 L Albumin (PEP) Pending Htdra-5-Igjcuviau Pending Ptnfh-0-Fzvntnhyg Pending Beta Globulins Pending Gamma Globulins Pending Protein Pending Electrophoresis Interpret Lab Scanned Report BLOOD TRANSFUSION Medications Medication Current Medications Escitalopram Oxalate (Lexapro) 2.5 mg DAILY PO Last administered on 10/09/18at 08:39; Admin Dose 2.5 MG; Start 10/09/18 at 09:00 Multivitamins Therapeutic (Theragran) 1 tab DAILY PO Last administered on 10/09/18at 08:40; Admin Dose 1 TAB; Start 10/09/18 at 09:00 Cholecalciferol (Vitamin D) 2,000 unit DAILY PO Last administered on 10/09/18at 08:40; Admin Dose 2,000 UNIT; Start 10/09/18 at 09:00 Guaifenesin/ Dextromethorphan (Robitussin Dm Liquid Cup) 10 ml Q6H PRN PO C OUGH; Start 10/08/18 at 13:00 IV Flush (NS 3 ml) 3 ml PER PROTOCOL IV ; Start 10/08/18 at 13:00 Acetaminophen (Tylenol Tab) 650 mg Q6H PRN PO .PAIN 1-3 OR TEMP; Start 10/08/18 at 13:00 Acetaminophen/ Hydrocodone Bitart ([place] (5/325)) 1 tab Q6H PRN PO .MOD PAIN 4- 6; Start 10/08/18 at 13:00 Docusate Sodium (Colace) 100 mg Q12H PRN PO .CONSTIPATION; Start 10/08/18 at 13:00 Pantoprazole (Protonix Iv) 40 mg BID@,18 IV Last administered on 10/09/18at 04:56; Admin Dose 40 MG; Start 10/08/18 at 18:00 Albuterol/ Ipratropium (Duoneb) 3 ml Q4H RESP THERAPY HHN Last administered on 10/08/18at 20:00; Admin Dose 3 ML; Start 10/08/18 at 13:00 Morphine Sulfate (morphine) 2 mg PRN PRN IV PAIN; Start 10/09/18 at 05:00 Ropinirole HCl (Requip) 0.25 mg HS PO ; Start 10/09/18 at 21:00 Trazodone HCl (Desyrel) 50 mg HS PO ; Start 10/09/18 at 21:00 BLANCA WINTERS Oct 09, 2018 14:23
[2018-10-09] MEDS: traZODone 50 MG TAB PO SCH (20:34)
[2018-10-09] MEDS: ROPINIROLE 0.25 MG TAB PO SCH (20:34)
[2018-10-10] VITALS (7 sets, daily range): BP systolic 96–118; BP diastolic 52–71; PULSE 64–79; RESP 18–20
[2018-10-10] MEDS: ALBUTEROL/IPRATROPIUM (NEB) 3 ML AMP HHN SCH ×6 (00:24→20:16)
[2018-10-10] MEDS: PANTOPRAZOLE 40 MG INJ IV SCH ×2 (06:45→18:31)
[2018-10-10] MEDS: MULTIVITAMINS THERAPEUTIC TAB PO SCH (10:09)
[2018-10-10] MEDS: ESCITALOPRAM 10 MG TAB PO SCH (10:09)
[2018-10-10] MEDS: CHOLECALCIFEROL 2,000 UNIT CAP PO SCH (10:09)
[2018-10-10] MEDS: predniSONE 20 MG TAB PO SCH (10:10)
--- NOTE | 2018-10-10 10:36 | CONS ---
Assessment/Plan Assessment/Plan Hospital Course (Demo Recall) 83 yo with profound macrocytic anemia with normal B12, folate. normal iron studies -stopped IV iron as his levels are normal -haptoglobin level and LDH are normal making hemolysis unlikely. f/u direct antonieta -await parvovirus abs -he does have many antibodies which made finding a match for him difficult -no evidence of vitmain b12 or folate deficiency -Tsh noted to be low -would recommend bone marrow biopsy. this has been ordered . will check epo level in case of MDS to see if patient would benefit from procrit Consultation Date/Type/Reason Admit Date/Time Oct 08, 2018 at 10:48 Initial Consult Date 10/08/18 Type of Consult hematology Reason for Consultation anemia Requesting Provider: SHAQ WALLS NP Date/Time of Note DATE: 10/10/18 TIME: 10:34 24 HR Interval Summary Free Text/Dictation pt due for bone marrow bx today. feels well Exam/Review of Systems Exam Vitals Vital Signs Date Temp Pulse Resp B/P (MAP) Pulse Ox O2 O2 Flow FiO2 Time Delivery Rate 10/10/18 77 17 97 21 08:44 10/10/18 Nasal 2.0 07:21 Cannula 10/10/18 97.4 105/52 07:17 (69) Intake and Output 10/09/18 10/09/18 10/10/18 1515:00 23:00 07:00 IntakeIntake Total 350 ml 400 ml OutputOutput Total 200 ml BalanceBalance 350 ml 200 ml Constitutional: alert, oriented Psych: no complaints Head: normocephalic Eyes: nl conjunctiva ENMT: nl external ears & nose Neck: supple Respiratory: clear to auscultation Cardiovascular: regular rate and rhythm Gastrointestinal: soft Musculoskeletal: nl extremities to inspection Results Result Diagram: 10/10/18 0500 10/10/18 0500 Results 24hrs Laboratory Tests Test 10/09/18 14:17 10/10/18 05:00 White Blood Count 9.2 # 7.6 Red Blood Count 2.09 L 2.32 L Hemoglobin 6.8 *L 7.3 L Hematocrit 20.3 L 22.7 L Mean Corpuscular Volume 97.1 97.8 Mean Corpuscular Hemoglobin 32.5 31.5 Mean Corpuscular Hemoglobin Concent 33.5 32.2 Red Cell Distribution Width 17.5 H 18.3 H Platelet Count 153 135 L Mean Platelet Volume 10.7 H 10.8 H Immature Granulocytes % 1.000 H 0.700 H Neutrophils % 79.8 H 74.4 Lymphocytes % 13.8 L 18.1 Monocytes % 5.3 6.5 Eosinophils % 0.0 0.0 Basophils % 0.1 0.3 Nucleated Red Blood Cells % 0.5 H 0.4 H Immature Granulocytes # 0.090 H 0.050 H Neutrophils # 7.4 5.7 Lymphocytes # 1.3 1.4 Monocytes # 0.5 0.5 Eosinophils # 0.0 0.0 Basophils # 0.0 0.0 Nucleated Red Blood Cells # 0.1 H 0.0 Absolute Reticulocyte Count 0.156 H Percent Reticulocyte Count 7.5 H Sodium Level 145 H 144 Potassium Level 3.8 3.6 Chloride Level 115 H 113 H Carbon Dioxide Level 24 26 Anion Gap 6 5 Blood Urea Nitrogen 26 #H 22 H Creatinine 1.04 1.08 Est Glomerular Filtrat Rate mL/min Glucose Level 152 107 # Hemoglobin A1c 5.4 Calcium Level 8.4 8.3 L Magnesium Level 1.9 Total Bilirubin 0.9 Direct Bilirubin 0.00 Indirect Bilirubin 0.9 Aspartate Amino Transf (AST/SGOT) 27 Alanine Aminotransferase (ALT/SGPT) 26 Alkaline Phosphatase 50 Total Protein 6.0 L Albumin 3.0 L Globulin 3.00 Albumin/Globulin Ratio 1.00 Triglycerides Level 130 Cholesterol Level 94 L LDL Cholesterol, Calculated 41 HDL Cholesterol 27 L Cholesterol/HDL Ratio 3.4 Medications Medication Current Medications Escitalopram Oxalate (Lexapro) 2.5 mg DAILY PO Last administered on 10/10/18 10:09; Admin Dose 2.5 MG; Start 10/09/18 at 09:00 Multivitamins Therapeutic (Theragran) 1 tab DAILY PO Last administered on 10/10/18 10:09; Admin Dose 1 TAB; Start 10/09/18 at 09:00 Cholecalciferol (Vitamin D) 2,000 unit DAILY PO Last administered on 10/10/18 10:09; Admin Dose 2,000 UNIT; Start 10/09/18 at 09:00 Guaifenesin/ Dextromethorphan (Robitussin Dm Liquid Cup) 10 ml Q6H PRN PO COUGH Last administered on 10/09/18 22:39; Admin Dose 10 ML; Start 10/08/18 at 13:00 IV Flush (NS 3 ml) 3 ml PER PROTOCOL IV ; Start 10/08/18 at 13:00 Acetaminophen (Tylenol Tab) 650 mg Q6H PRN PO .PAIN 1-3 OR TEMP; Start 10/08/18 at 13:00 Acetaminophen/ Hydrocodone Bitart ([place] (5/325)) 1 tab Q6H PRN PO .MOD PAIN 4- 6 Last administered on 10/09/18 22:39; Admin Dose 1 TAB; Start 10/08/18 at 13:00 Docusate Sodium (Colace) 100 mg Q12H PRN PO .CONSTIPATION; Start 10/08/18 at 13:00 Pantoprazole (Protonix Iv) 40 mg BID@18 IV Last administered on 10/10/18 06:45; Admin Dose 40 MG; Start 10/08/18 at 18:00 Albuterol/ Ipratropium (Duoneb) 3 ml Q4H RESP THERAPY HHN Last administered on 10/10/18 08:44; Admin Dose 3 ML; Start 10/08/18 at 13:00 Morphine Sulfate (morphine) 2 mg PRN PRN IV PAIN; Start 10/09/18 at 05:00 Ropinirole HCl (Requip) 0.25 mg HS PO Last administered on 10/09/18 20:34; Admin Dose 0.25 MG; Start 10/09/18 at 21:00 Trazodone HCl (Desyrel) 50 mg HS PO Last administered on 10/09/18 20:34; Admin Dose 50 MG; Start 10/09/18 at 21:00 Prednisone (Prednisone) 60 mg DAILY PO Last administered on 10/10/18 10:10; Admin Dose 60 MG; Start 10/10/18 at 09:00 SHEILA BENEDICT M.D. Oct 10, 2018 10:36
--- NOTE | 2018-10-10 10:45 | PN ---
Date/Time of Note Date/Time of Note DATE: 10/10/18 TIME: 10:37 Assessment/Plan VTE Prophylaxis Risk score (from Ns)>0 risk: 4 SCD applied (from [facility] [place]): No SCD contraindicated: other Pharmacological prophylaxis: NA/contraindicated Pharm contraindication: low risk/ambulating, anticoag not tolerated Lines/Catheters IV Catheter Type (from [facility]): Peripheral IV Urinary Cath still in place: No Assessment/Plan Hospital Course SUBJECTIVE:pt slept very well yesterday.Has not had periodic leg movements. OBJECTIVE: Vital signs-see below PHYSICAL EXAM: Constitutional: Adequately built,not in acute distress. HEENT: Head atraumatic and normocephalic. Eyes: Extraocular muscles intact. Anicteric sclerae. Pupils equal bilaterally, reactive to light. NECK: Supple without lymph node. CHEST: Clear and good breath sounds equally. No wheezing. No rhonchi. HEART: S1, S2. Regular rate and rhythm. ABDOMEN: Soft/non tender with no rebound tenderness. Bowel sounds were present. EXTREMITIES: No cyanosis, clubbing or edema. NEUROLOGIC: Alert and oriented x3. No focal deficit. No sensory deficit. PSYCHOSOCIAL: No signs of depression. INTEGUMENTARY: No open wounds. ASSESSMENT AND PLAN:83-year-old male with a past medical history of depression, CVA, vitamin D deficiency, gastritis/esophagitis, was transferred from half-way with generalized weakness x3 to 4 days with decreased appetite, found to have severe anemia.. Severe symptomatic anemia -r/o hematological disorders-for bone marrow biopsy today -Tx 2 more units today -d/u heme recs Acute bronchitis -Symptoms improved. s/p abx Gastritis/esophagitis -s/p EGD 2 wks ago. Patient did not admit to any UGI B/L GIB symptoms currently. -PPi Depressive disorders -Start trazodone -Continue Lexapro Possible restless leg syndrome -improved -cont. ropinirole History CVA -hold asa until heme work up completed Vitamin D deficiency -cont. supplementation Obesity with a BMI 30.2 -Lifestyle changes advised DVT prophylaxis: SCDs PUD prophylaxis: PPI Dispo:pt to get 2 PRBC. For bone marrow biopsy today. Dc planning in AM once these are done w/outpt f/u with on the week of Ginette 29th to discuss biopsy result and go from there. Rest of the management depend on hospital course. Patient is seen in collaboration with . Result Diagram: 10/10/18 0500 10/10/18 0500 Results 24hrs Laboratory Tests Test 10/09/18 14:17 10/10/18 05:00 White Blood Count 9.2 # 7.6 Red Blood Count 2.09 L 2.32 L Hemoglobin 6.8 *L 7.3 L Hematocrit 20.3 L 22.7 L Mean Corpuscular Volume 97.1 97.8 Mean Corpuscular Hemoglobin 32.5 31.5 Mean Corpuscular Hemoglobin Concent 33.5 32.2 Red Cell Distribution Width 17.5 H 18.3 H Platelet Count 153 135 L Mean Platelet Volume 10.7 H 10.8 H Immature Granulocytes % 1.000 H 0.700 H Neutrophils % 79.8 H 74.4 Lymphocytes % 13.8 L 18.1 Monocytes % 5.3 6.5 Eosinophils % 0.0 0.0 Basophils % 0.1 0.3 Nucleated Red Blood Cells % 0.5 H 0.4 H Immature Granulocytes # 0.090 H 0.050 H Neutrophils # 7.4 5.7 Lymphocytes # 1.3 1.4 Monocytes # 0.5 0.5 Eosinophils # 0.0 0.0 Basophils # 0.0 0.0 Nucleated Red Blood Cells # 0.1 H 0.0 Absolute Reticulocyte Count 0.156 H Percent Reticulocyte Count 7.5 H Sodium Level 145 H 144 Potassium Level 3.8 3.6 Chloride Level 115 H 113 H Carbon Dioxide Level 24 26 Anion Gap 6 5 Blood Urea Nitrogen 26 #H 22 H Creatinine 1.04 1.08 Est Glomerular Filtrat Rate mL/min Glucose Level 152 107 # Hemoglobin A1c 5.4 Calcium Level 8.4 8.3 L Magnesium Level 1.9 Total Bilirubin 0.9 Direct Bilirubin 0.00 Indirect Bilirubin 0.9 Aspartate Amino Transf (AST/SGOT) 27 Alanine Aminotransferase (ALT/SGPT) 26 Alkaline Phosphatase 50 Total Protein 6.0 L Albumin 3.0 L Globulin 3.00 Albumin/Globulin Ratio 1.00 Triglycerides Level 130 Cholesterol Level 94 L LDL Cholesterol, Calculated 41 HDL Cholesterol 27 L Cholesterol/HDL Ratio 3.4 Exam/Review of Systems Exam Vitals Vital Signs Date Temp Pulse Resp B/P (MAP) Pulse Ox O2 O2 Flow FiO2 Time Delivery Rate 7/19/19 77 17 97 21 08:44 10/10/18 Nasal 2.0 07:21 Cannula 10/10/18 97.4 105/52 07:17 (69) Intake and Output 10/09/18 10/09/18 10/10/18 1515:00 23:00 07:00 IntakeIntake Total 350 ml 400 ml OutputOutput Total 200 ml BalanceBalance 350 ml 200 ml Results Results 24hrs Laboratory Tests Test 10/09/18 14:17 10/10/18 05:00 White Blood Count 9.2 # 7.6 Red Blood Count 2.09 L 2.32 L Hemoglobin 6.8 *L 7.3 L Hematocrit 20.3 L 22.7 L Mean Corpuscular Volume 97.1 97.8 Mean Corpuscular Hemoglobin 32.5 31.5 Mean Corpuscular Hemoglobin Concent 33.5 32.2 Red Cell Distribution Width 17.5 H 18.3 H Platelet Count 153 135 L Mean Platelet Volume 10.7 H 10.8 H Immature Granulocytes % 1.000 H 0.700 H Neutrophils % 79.8 H 74.4 Lymphocytes % 13.8 L 18.1 Monocytes % 5.3 6.5 Eosinophils % 0.0 0.0 Basophils % 0.1 0.3 Nucleated Red Blood Cells % 0.5 H 0.4 H Immature Granulocytes # 0.090 H 0.050 H Neutrophils # 7.4 5.7 Lymphocytes # 1.3 1.4 Monocytes # 0.5 0.5 Eosinophils # 0.0 0.0 Basophils # 0.0 0.0 Nucleated Red Blood Cells # 0.1 H 0.0 Absolute Reticulocyte Count 0.156 H Percent Reticulocyte Count 7.5 H Sodium Level 145 H 144 Potassium Level 3.8 3.6 Chloride Level 115 H 113 H Carbon Dioxide Level 24 26 Anion Gap 6 5 Blood Urea Nitrogen 26 #H 22 H Creatinine 1.04 1.08 Est Glomerular Filtrat Rate mL/min Glucose Level 152 107 # Hemoglobin A1c 5.4 Calcium Level 8.4 8.3 L Magnesium Level 1.9 Total Bilirubin 0.9 Direct Bilirubin 0.00 Indirect Bilirubin 0.9 Aspartate Amino Transf (AST/SGOT) 27 Alanine Aminotransferase (ALT/SGPT) 26 Alkaline Phosphatase 50 Total Protein 6.0 L Albumin 3.0 L Globulin 3.00 Albumin/Globulin Ratio 1.00 Triglycerides Level 130 Cholesterol Level 94 L LDL Cholesterol, Calculated 41 HDL Cholesterol 27 L Cholesterol/HDL Ratio 3.4 Medications Medication Current Medications Escitalopram Oxalate (Lexapro) 2.5 mg DAILY PO Last administered on 10/10/18 10:09; Admin Dose 2.5 MG; Start 10/09/18 at 09:00 Multivitamins Therapeutic (Theragran) 1 tab DAILY PO Last administered on 10/10/18 10:09; Admin Dose 1 TAB; Start 10/09/18 at 09:00 Cholecalciferol (Vitamin D) 2,000 unit DAILY PO Last administered on 10/10/18 10:09; Admin Dose 2,000 UNIT; Start 10/09/18 at 09:00 Guaifenesin/ Dextromethorphan (Robitussin Dm Liquid Cup) 10 ml Q6H PRN PO COUGH Last administered on 10/09/18 22:39; Admin Dose 10 ML; Start 10/08/18 at 13:00 IV Flush (NS 3 ml) 3 ml PER PROTOCOL IV ; Start 10/08/18 at 13:00 Acetaminophen (Tylenol Tab) 650 mg Q6H PRN PO .PAIN 1-3 OR TEMP; Start 10/08/18 at 13:00 Acetaminophen/ Hydrocodone Bitart ([place] (5/325)) 1 tab Q6H PRN PO .MOD PAIN 4- 6 Last administered on 10/09/18 22:39; Admin Dose 1 TAB; Start 10/08/18 at 13:00 Docusate Sodium (Colace) 100 mg Q12H PRN PO .CONSTIPATION; Start 10/08/18 at 13:00 Pantoprazole (Protonix Iv) 40 mg BID@06,18 IV Last administered on 10/10/18 06:45; Admin Dose 40 MG; Start 10/08/18 at 18:00 Albuterol/ Ipratropium (Duoneb) 3 ml Q4H RESP THERAPY HHN Last administered on 10/10/18 08:44; Admin Dose 3 ML; Start 10/08/18 at 13:00 Morphine Sulfate (morphine) 2 mg PRN PRN IV PAIN; Start 10/09/18 at 05:00 Ropinirole HCl (Requip) 0.25 mg HS PO Last administered on 10/09/18 20:34; Admin Dose 0.25 MG; Start 10/09/18 at 21:00 Trazodone HCl (Desyrel) 50 mg HS PO Last administered on 10/09/18 20:34; Admin Dose 50 MG; Start 10/09/18 at 21:00 Prednisone (Prednisone) 60 mg DAILY PO Last administered on 10/10/18at 10:10; Admin Dose 60 MG; Start 10/10/18 at 09:00 SHAQ WALLS NP Oct 10, 2018 10:45
[2018-10-10] MEDS ORDERED: LIDOCAINE 1% (MDV) 20 ML INJ ONE (11:43)
[2018-10-10] MEDS ORDERED: FENTAnyl 50 MCG/ML VIAL ONE (12:07)
[2018-10-10] MEDS: traZODone 50 MG TAB PO SCH (20:04)
[2018-10-10] MEDS: ROPINIROLE 0.25 MG TAB PO SCH (20:04)
[2018-10-11] MEDS: ALBUTEROL/IPRATROPIUM (NEB) 3 ML AMP HHN SCH ×5 (01:22→17:00)
[2018-10-11 04:00] VITALS: BP 122/58; PULSE 74; RESP 18
[2018-10-11] MEDS: PANTOPRAZOLE 40 MG INJ IV SCH (06:44)
[2018-10-11 07:30] VITALS: BP 111/79; PULSE 77; RESP 19
[2018-10-11] MEDS: CHOLECALCIFEROL 2,000 UNIT CAP PO SCH (08:18)
[2018-10-11] MEDS: MULTIVITAMINS THERAPEUTIC TAB PO SCH (08:18)
[2018-10-11] MEDS: ESCITALOPRAM 10 MG TAB PO SCH (08:18)
[2018-10-11] MEDS: predniSONE 20 MG TAB PO SCH (08:18)
[2018-10-11] MEDS ORDERED: POTASSIUM CHLORIDE (SR) 20 MEQ TAB PO STA (10:41)
--- NOTE | 2018-10-11 10:57 | DS ---
Date/Time of Note Date/Time of Note DATE: 10/11/18 TIME: 10:50 Discharge Summary Admission/Discharge Info Admit Date/Time Oct 08, 2018 at 10:48 Discharge Date/Time October 11, 2018 Discharge Diagnosis Critical anemia of unknown cause without evidence of hemolysis bone marrow biopsy pending; essential hypertension; chronic pancreatitis; benign prostatic hypertrophy; left adrenal myolipoma; abnormal thyroid function tests, suppressed TSH; mixed hyperlipidemia; depressive disorder; ambulatory dysfunction; history of laparoscopic cholecystectomy Patient Condition: Fair Consults Gastroenterology; hematology Procedures Bone marrow biopsy; abdominal pelvic CT scan Hx of Present Illness Type of Consult Pulmonary Patient is a pleasant 57-year-old lady who came into the hospital transferred from another facility where she presented with a few days history of shortness of breath. Upon evaluation there is CT of the chest was done which is showing bilateral large pleural effusions without any pulmonary embolism. Patient was transferred over here for further care. According to the patient she you has been having shortness of breath for the last few weeks without any associated coughing, wheezing sputum production or fever. Patient also denies any other constitutional symptoms. Hx of Present Illness 83-year-old male with a past medical history of depression, CVA, vitamin D deficiency, gastritis/esophagitis, [facility] with generalized weakness x3 to 4 days with decreased appetite. Patient also did admit to cough which has been going on for a few weeks. Patient did not have any nausea, vomiting, abdominal pain, fevers, chills, diarrhea, constipation. Patient also denied chest pain, palpitation, shortness of breath, loss of consciousness, dizziness, numbness, tingling or other constitutional symptoms. Apparently, patient was recently discharged from [facility] about 2 weeks ago for evaluation of coffee-ground emesis reported from the prison for which he underwent EGD evaluation with no significant GI b leeding source identified other than chronic gastritis and esophagitis.At that time patient presented with a hemoglobin 11.7 which then dropped to 8.5 on day of discharge. Patient continued to take aspirin at the nursing facility. On arrival, patient was noted with a hemoglobin 6.7, hematocrit 21.3, white count 13,800, BUN 49. Chest x-ray with no evidence of pneumonia. Vital signs stable. No fevers. Hx of Present Illness 83-year-old male with past medical history of CVA, vitamin D deficiency, depression recently admitted to [facility] for hematemesis. He is s/p EGD showing gastritis and esophagitis. [place] with cough and weakness, labs show macrocytic anemia with a hemoglobin of 6.1 MCV 101.9. Patient denies any overt signs of GI bleed i.e. melena, hematochezia, or hematemesis. He has been seen by GI but refuses colonoscopy per the notes. He believes he has had colonoscopy in last few years but unable to tell me where. He had CT AP last admission with no overt abnormalities noted. He has normal b12 and iron and folate levels He reports " I have been anemic my whole life" and that he has never needed a transfusion of note his nurse tells me that the blood bank detected multiple antibodies in his blood Hx of Present Illness Is an 83-year-old male with past medical history of CVA, vitamin D deficiency, d epression who was recently admitted to [facility] for hematemesis he underwent EGD showing gastritis esophagitis as well as a small hiatal hernia biopsies negative for H. pylori. He represented to [facility] emergency department from his prison with complaints of cough, generalized weakness for the past 3 to 4 days and a decreased appetite. Work-up in the ED including hematology showing severe macrocytic anemia with a hemoglobin of 6.1 MCV 101.9. Patient denies any overt signs of GI bleed i.e. melena, hematochezia, or hematemesis. Discussed possibility of colonoscopy patient this time denies colonoscopy but is agreeable to move forward with a CT scan abdomen pelvis to assess both the liver given macrocytic anemia as well as colon to rule out inflammation, lesion or mass. If abnormality is noted patient states he would be more open to the idea of colonoscopy. Hospital Course 83-year-old male admitted with critical anemia. Review of the history in our computer record indicates a long-term anemia but had severe anemia back in 2015. This was not his baseline level. His B12 level folate level and iron studies were within normal limits. He did not have an elevated LDH he did not have an abnormal haptoglobin, he has antibodies in his blood making a crossmatch somewhat challenging. From a GI standpoint he had a recent upper endoscopy his last colonoscopy was in 2014 without major abnormalities. He has been transfused up and has had bone marrow biopsy the results of which are pending at this time. He has been seen by physical therapy and also by case management and can return back to his facility, with the appropriate support in place as delineated by physical therapy and the case management. He has capacity to make medical decisions at this time and has no known communicable diseases. Home Meds Reported Medications Guaifenesin/Dextromethorphan (Diabetic Tussin DM*) 118 Ml Liquid, 10 ML PO Q6H PRN for COUGH, BOTTLE 10/08/18 Famotidine* (Famotidine*) 20 Mg Tablet, 20 MG PO DAILY, #30 TAB 10/08/18 Loratadine* (Loratadine*) 10 Mg Tablet, 10 MG PO DAILY PRN for NEEDED, #30 TAB 10/08/18 Escitalopram Oxalate* (Lexapro*) 5 Mg Tablet, 2.5 MG PO DAILY, #30 TAB 09/28/18 Ergocalciferol (Vitamin D2) (VITAMIN D2) 2,000 Unit Tablet, 2000 UNIT PO DAILY, TAB 09/28/18 Aspirin* (Aspirin* EC) 81 Mg Tablet.dr, 81 MG PO DAILY, TAB 05/10/18 Fenofibrate, Micronized (Fenofibrate) 54 Mg Tablet, 54 MG PO DAILY, TAB 04/18/18 Multivitamin* (Daily Value*) 1 Each Tablet, 1 TAB PO DAILY, TAB 08/22/17 Discontinued Scripts Pantoprazole* (Pantoprazole*) 40 Mg Tablet.dr, 40 MG PO BID@,18 for 60 Days, #120 TAB Prov:EMMA ART MD 09/30/18 Follow-up Plan Hematology within 1 week Primary Care Provider Not On Staff Doctor Time spent on discharge: > 30 minutes Pending Labs Laboratory Tests Test 10/11/18 05:19 White Blood Count 13.3 10^3/ul (4.8-10.8) Red Blood Count 2.88 10^6/ul (4.70-6.10) Hemoglobin 9.4 g/dl (14.0-18.0) Hematocrit 28.0 % (42.0-52.0) Mean Corpuscular Volume 97.2 fl (82.0-101.0) Mean Corpuscular Hemoglobin 32.6 pg (29.0-33.0) Mean Corpuscular Hemoglobin Concent 33.6 g/dl (32.0-37.0) Red Cell Distribution Width 17.3 % (11.5-14.5) Platelet Count 156 10^3/UL (140-415) Mean Platelet Volume 10.9 fl (7.4-10.4) Immature Granulocytes % 0.800 % (0.001-0.429) Neutrophils % 87.9 % (39.0-77.0) Lymphocytes % 7.1 % (15.0-51.0) Monocytes % 4.0 % (0.0-11.0) Eosinophils % 0.0 % (0.0-7.0) Basophils % 0.2 % (0.0-2.0) Nucleated Red Blood Cells % 0.4 /100WBC (0.0-0.0) Immature Granulocytes # 0.110 10^3/ul (0.0-0.031) Neutrophils # 11.7 10^3/ul (1.6-7.5) Lymphocytes # 1.0 10^3/ul (0.8-2.9) Monocytes # 0.5 10^3/ul (0.3-0.9) Eosinophils # 0.0 10^3/ul (0.0-0.5) Basophils # 0.0 10^3/ul (0.0-0.1) Nucleated Red Blood Cells # 0.1 10^3/ul (0.0-0.0) Sodium Level 143 mmol/L (135-144) Potassium Level 3.3 mmol/L (3.5-5.1) Chloride Level 113 mmol/L (97-110) Carbon Dioxide Level 21 mmol/L (21-31) Anion Gap 9 (5-13) Blood Urea Nitrogen 23 mg/dl (7-20) Creatinine 1.02 mg/dl (0.61-1.24) Est Glomerular Filtrat Rate mL/min mL/min (>60) Glucose Level 136 mg/dl (70-220) Calcium Level 8.9 mg/dl (8.4-10.2) FIDEL DANG MD Oct 11, 2018 10:57
--- NOTE | 2018-10-11 10:58 | PDOCDIS ---
Discharge Instructions DIAGNOSIS Discharge Diagnosis Critical anemia of unknown cause without evidence of hemolysis bone marrow biopsy pending; essential hypertension; chronic pancreatitis; benign prostatic hypertrophy; left adrenal myolipoma; abnormal thyroid function tests, suppressed TSH; mixed hyperlipidemia; depressive disorder; ambulatory dysfunction; history of laparoscopic cholecystectomy CONDITION [id number] Patient Condition: [id number] Fair HOME CARE INSTRUCTIONS: [id number] Diet Instructions: [id number] Regular ACTIVITY: [id number] Activity Restrictions: [id number] Slowly Increase Activity FOLLOW UP/APPOINTMENTS Follow-up Plan Hematology within 1 week; pending labs at this time of the bone marrow biopsy, serologies for RPR and hep C, and free T4 and free T3. FIDEL DANG MD Oct 11, 2018 10:58
[2018-10-11] MEDS ORDERED: POTASSIUM CHLORIDE 100 ML IVPB ONE (11:00)
[2018-10-11 11:17] VITALS: BP 105/77; PULSE 79; RESP 18
--- NOTE | 2018-10-11 15:06 | CONS ---
Assessment/Plan Assessment/Plan Assessment/Plan (Daily) 83 yo with profound macrocytic anemia with normal B12, folate. normal iron studies -stopped IV iron as his levels are normal -haptoglobin level and LDH are normal making hemolysis unlikely. f/u direct antonieta -await parvovirus abs -he does have many antibodies which made finding a match for him difficult -no evidence of vitamin b12 or folate deficiency -Tsh noted to be low -would recommend bone marrow biopsy. this has been ordered . will check epo level in case of MDS to see if patient would benefit from procrit Consultation Date/Type/Reason Admit Date/Time Oct 08, 2018 at 10:48 Initial Consult Date 10/08/18 Type of Consult HEMATOLOGY/ONCOLOGY Reason for Consultation ANEMIA Requesting Provider: SHAQ WALLS NP Date/Time of Note DATE: 10/11/18 TIME: 15:05 24 HR Interval Summary Free Text/Dictation No new events last night 10/10/2018- SP CT guided bone marrow aspiration and left iliac bone biopsy. Detailed Summary Eyes: no complaints ENT: no complaints Respiratory: no complaints Cardiovascular: no complaints Gastrointestinal: no complaints Genitourinary: no complaints Neurologic: no complaints Psychological: nl mood/affect Immunologic: no complaints Exam/Review of Systems Exam Vitals Vital Signs Date Temp Pulse Resp B/P (MAP) Pulse Ox O2 O2 Flow FiO2 Time Delivery Rate 10/11/18 66 20 95 Aerosol 2.0 13:17 Mask Nasal Cannula 10/11/18 98.4 105/77 11:17 (86) 10/10/18 21 20:16 Intake and Output 10/10/18 10/10/18 10/11/18 1515:00 23:00 07:00 IntakeIntake Total 350 ml 350 ml 850 ml BalanceBalance 350 ml 350 ml 850 ml Constitutional: alert, well developed Psych: nl mood/affect Eyes: nl lids ENMT: nl external ears & nose Respiratory: clear to auscultation Cardiovascular: nl pulses, other (s1s2) Gastrointestinal: soft Musculoskeletal: muscle weakness Extremities: normal pulses Neurological: other (alert/responsive) Lymph: nontender Results Result Diagram: 10/11/1851810/11/18518 Results 24hrs Laboratory Tests Test 10/11/18 05:19 10/11/18 10:59 White Blood Count 13.3 #H Red Blood Count 2.88 #L Hemoglobin 9.4 #L Hematocrit 28.0 #L Mean Corpuscular Volume 97.2 Mean Corpuscular Hemoglobin 32.6 Mean Corpuscular Hemoglobin Concent 33.6 Red Cell Distribution Width 17.3 H Platelet Count 156 Mean Platelet Volume 10.9 H Immature Granulocytes % 0.800 H Neutrophils % 87.9 H Lymphocytes % 7.1 L Monocytes % 4.0 Eosinophils % 0.0 Basophils % 0.2 Nucleated Red Blood Cells % 0.4 H Immature Granulocytes # 0.110 H Neutrophils # 11.7 H Lymphocytes # 1.0 Monocytes # 0.5 Eosinophils # 0.0 Basophils # 0.0 Nucleated Red Blood Cells # 0.1 H Sodium Level 143 Potassium Level 3.3 L Chloride Level 113 H Carbon Dioxide Level 21 Anion Gap 9 Blood Urea Nitrogen 23 H Creatinine 1.02 Est Glomerular Filtrat Rate mL/min Glucose Level 136 Calcium Level 8.9 Free Thyroxine 1.19 Free Triiodothyronine (T3) pg/mL 3.22 Rapid Plasma Reagin NONREACTIVE Hepatitis C Antibody NEGATIVE Medications Medication Current Medications Escitalopram Oxalate (Lexapro) 2.5 mg DAILY PO Last administered on 10/11/18 08:18; Admin Dose 2.5 MG; Start 10/09/18 at 09:00 Multivitamins Therapeutic (Theragran) 1 tab DAILY PO Last administered on 10/11/18 08:18; Admin Dose 1 TAB; Start 10/09/18 at 09:00 Cholecalciferol (Vitamin D) 2,000 unit DAILY PO Last administered on 10/11/18 08:18; Admin Dose 2,000 UNIT; Start 10/09/18 at 09:00 Guaifenesin/ Dextromethorphan (Robitussin Dm Liquid Cup) 10 ml Q6H PRN PO COUGH Last administered on 10/09/18 22:39; Admin Dose 10 ML; Start 10/08/18 at 13:00 IV Flush (NS 3 ml) 3 ml PER PROTOCOL IV ; Start 10/08/18 at 13:00 Acetaminophen (Tylenol Tab) 650 mg Q6H PRN PO .PAIN 1-3 OR TEMP; Start 10/08/18 at 13:00 Acetaminophen/ Hydrocodone Bitart ([place] (5/325)) 1 tab Q6H PRN PO .MOD PAIN 4- 6 Last administered on 10/09/18 22:39; Admin Dose 1 TAB; Start 10/08/18 at 13:00 Docusate Sodium (Colace) 100 mg Q12H PRN PO .CONSTIPATION; Start 10/08/18 at 13:00 Pantoprazole (Protonix Iv) 40 mg BID@06,18 IV Last administered on 10/11/18 06:44; Admin Dose 40 MG; Start 10/08/18 at 18:00 Albuterol/ Ipratropium (Duoneb) 3 ml Q4H RESP THERAPY HHN Last administered on 10/11/18 13:16; Admin Dose 3 ML; Start 10/08/18 at 13:00 Morphine Sulfate (morphine) 2 mg PRN PRN IV PAIN; Start 10/09/18 at 05:00 Ropinirole HCl (Requip) 0.25 mg HS PO Last administered on 10/10/18 20:04; Admin Dose 0.25 MG; Start 10/09/18 at 21:00 Trazodone HCl (Desyrel) 50 mg HS PO Last administered on 10/10/18 20:04; Admin Dose 50 MG; Start 10/09/18 at 21:00 Prednisone (Prednisone) 60 mg DAILY PO Last administered on 10/11/18 08:18; Admin Dose 60 MG; Start 10/10/18 at 09:00 DEJON GAMBOA Oct 11, 2018 15:06
[2018-10-11 15:19] VITALS: BP 137/64; RESP 18
[2018-10-11 20:00] VITALS: BP 133/77; RESP 19
== END 2018-10-11 15:45 | disposition home health service (06) | DRG 803 ==
LOC: E/R 07:32 → 6WM 10:48
PROVIDERS: ADMIT Internal Medicine; ATTEND Internal Medicine
PROC: 30233N1 Transfusion of Nonautologous Red Blood Cells into Peripheral Vein, Percutaneous Approach (ICD-10-PCS; 2018-10-09)
PROC: 0QB33ZX Excision of Left Pelvic Bone, Percutaneous Approach, Diagnostic (ICD-10-PCS; principal; 2018-10-10)
PROC: 07DR3ZX Extraction of Iliac Bone Marrow, Percutaneous Approach, Diagnostic (ICD-10-PCS; 2018-10-10)
DX: D53.9 Nutritional anemia, unspecified (principal); K86.1 Other chronic pancreatitis; J20.9 Acute bronchitis, unspecified; K29.50 Unspecified chronic gastritis without bleeding; E55.9 Vitamin D deficiency, unspecified; E66.9 Obesity, unspecified; F32.9 Major depressive disorder, single episode, unspecified; D17.79 Benign lipomatous neoplasm of other sites; E78.2 Mixed hyperlipidemia; N40.0 Benign prostatic hyperplasia without lower urinary tract symptoms; F03.90 Unspecified dementia, unspecified severity, without behavioral disturbance, psychotic disturbance, mood disturbance, and anxiety; I10 Essential (primary) hypertension; K21.0 Gastro-esophageal reflux disease with esophagitis; Z86.73 Personal history of transient ischemic attack (TIA), and cerebral infarction without residual deficits; Z90.49 Acquired absence of other specified parts of digestive tract
CPT/HCPCS: 36415; 36430; 71045; 74177; 77012; 80048; 80053; 80061; 82607; 82668; 82728; 82746; 83010; 83036; 83540; 83605; 83615; 83735; 83880; 84155; 84165; 84439; 84443; 84481; 84484; 85025; 85045; 85610; 85730; 86592; 86803; 86850; 86870; 86880; 86900; 86901; 86920; 88305; 88311; 88313; 94640; 94664; 96374; 96375; 96376; 97162; C9113; J0692; J1200; J1630; J2916; J3010; J3370; J7030; J7512; P9016; Q9967